=== PATIENT | female | born 1935 | race Caucasian/White ===

== ENCOUNTER 2019-11-25 16:37 | Inpatient (IN) | payer MEDICARE, SELFPAY ==
[2019-11-25] VITALS (10 sets, daily range): BP systolic 152–175; BP diastolic 56–96; PULSE 70–89; RESP 16–22; TEMP 36.4–36.7; O2SAT 95–100; BMI 30.4
--- NOTE | ~2019-11-25 | US_ITS ---
EXAMINATION: US right upper quadrant DATE: 11/29/2019 09:14 INDICATION: Upper bilirubinemia. Abdominal pain. TECHNIQUE: Multiple grayscale and Doppler ultrasound images of the abdomen were obtained. COMPARISON: CT dated 11/25/2019 and 07/17/2019. FINDINGS: The body of the pancreas is poorly visualized but appears unremarkable. The head and tail the pancrea s are not visualized. Liver has normal echogenicity and contour, with a smooth surface. No liver lesi on identified. No intrahepatic biliary duct dilation suspected. Portal venous flow was seen in the he patopetal, normal direction and has normal Doppler waveform. Multiple hyperechoic shadowing gallstone s within the nondilated gallbladder. Chronic gallbladder wall thickening. Sonographic Thomas sign was reported as negative by the pc installation engineer.Common bile duct measures 5 mm in diameter which is normal b ut which is decreased since the most recent prior CT. On one of the images there appears be a 3 mm, e chogenic focus within the proximal common bile duct which could represent either sludge or a nonshado wing gallstone. IMPRESSION: 1. Cholelithiasis and possible choledocholithiasis. No intrahepatic biliary ductal dilation and rubens l caliber common bile duct however the latter is new since the most recent prior CT suggesting possib ility of interval passage of a previously obstructing gallstone. If clinically indicated MRCP could b e obtained for more definitive assessment for choledocholithiasis. 2. Chronic gallbladder wall thickening with negative sonographic Thomas's sign suggestive of chronic cholecystitis. False negative for acute cholecystitis would also be a possibility if patient is recei ving analgesics. If there is clinical concern for acute cholecystitis could consider HIDA scan for fu rther evaluation. Reviewed, dictated and finalized at location A. IMPRESSION: 1. Cholelithiasis and possible choledocholithiasis. No intrahepatic biliary neto markell dilation and normal caliber common bile duct however the latter is new sinc e the most recent prior CT suggesting possibility of interval passage of a prev iously obstructing gallstone. If clinically indicated MRCP could be obtained fo r more definitive assessment for choledocholithiasis. 2. Chronic gallbladder wall thickening with negative sonographic Thomas's sign suggestive of chronic cholecystitis. False negative for acute cholecystitis wou ld also be a possibility if patient is receiving analgesics. If there is clinic al concern for acute cholecystitis could consider HIDA scan for further evaluat ion.
--- NOTE | ~2019-11-25 | MR_ITS ---
EXAMINATION: MR MRCP wo/w con/w 3D wo ind DATE: 11/30/2019 11:14 INDICATION: Possible choledocholithiasis TECHNIQUE: Magnetic resonance imaging (MRI) of the abdomen was performed without and with intravenous contrast. Sequences included coronal T2-weighted SS-FSE ARC, coronal T2-weighted FS SS-FSE, coronal T2-weighted 2D FS FIESTA, Water:Coronal LAVA-Flex, sagittal T2-weighted SS-FSE ARC, axial SSFSE ARC, axial 3D DualEcho, axial DWI B=600, axial T1-weighted LAVA, FAT:Coronal LAVA-Flex, and coronal in and opposed phase LAVA-Flex. Thick-slab T2-weighted FRFSE-XL images were obtained for magnetic resonance cholangiopancreatography (MRCP). Maximum intensity projection 3-D reconstructions of the volumetric data were created by the technologist. Postcontrast sequences included a time course of axial T1-weig hted LAVA, FAT:Coronal LAVA-Flex, coronal in and opposed phase LAVA-Flex, and Water:Coronal LAVA-Flex . COMPARISON: CT, 11/25/2019, 08/08/2017 CONTRAST: Multihance, 15 cc FINDINGS: ABDOMEN MRI: There is an 11 mm nodule of the right lower lobe. The heart size is normal. The liver, s pleen, and right adrenal gland are normal. There is a 1.3 cm mass of the left adrenal gland which dem onstrates loss of signal on opposed phase sequences, consistent with an adenoma. There are multiple s tones within the gallbladder. There is mild chronic gallbladder wall thickening. Subtle edematous str anding of the pericholecystic fat is again noted. There is a 2.0 x 1.3 cm cystic lesion with thin int ernal septations in the head of the pancreas which is not definitely communicate with the main pancre atic duct. Postcontrast images are slightly limited by respiratory motion artifact. No abnormal enhan cement is identified. There are no pathologically enlarged abdominal lymph nodes. There is a large pa rastomal hernia of the left abdominal wall containing nonobstructed transverse colon. A large volume of colonic stool is present. ABDOMEN MRCP: There is no intrahepatic or extrahepatic biliary dilatation. No common bile duct stone or stricture is seen. There is mass effect on the mid common bile duct by the cystic pancreatic head mass. The main common bile duct measures 7 mm and narrows to 2 mm in the area of mass effect caused b y the pancreatic head lesion. The pancreatic duct is normal in course and caliber. IMPRESSION: 1. Cholelithiasis with mild gallbladder distention and mild pericholecystic fat stranding, both of wh ich are chronic, likely reflecting chronic cholecystitis. 2. No choledocholithiasis. 3. Cystic lesion in the head of the pancreas measuring up to 2.0 cm which exerts mass effect on the m id common bile duct. The differential diagnosis includes pseudocyst, intraductal papillary mucinous n eoplasm (IPMN), mucinous cystic neoplasm (MCN), and the less common serous cystadenoma and neuroendoc rine tumor. Correlate for history of pancreatitis. Follow-up MRI without and with contrast in one yea r is recommended. 4. Left adrenal adenoma. Reviewed, dictated and finalized at location A. IMPRESSION: 1. Cholelithiasis with mild gallbladder distention and mild pericholecystic fat stranding, both of which are chronic, likely reflecting chronic cholecystitis. 2. No choledocholithiasis. 3. Cystic lesion in the head of the pancreas measuring up to 2.0 cm which exert s mass effect on the mid common bile duct. The differential diagnosis includes pseudocyst, intraductal papillary mucinous neoplasm (IPMN), mucinous cystic liliana plasm (MCN), and the less common serous cystadenoma and neuroendocrine tumor. C orrelate for history of pancreatitis. Follow-up MRI without and with contrast i n one year is recommended. 4. Left adrenal adenoma.
--- NOTE | ~2019-11-25 | XR_ITS ---
EXAMINATION: XR chest 2V DATE: 12/06/2019 13:48 INDICATION: Abnormal lung sounds TECHNIQUE: AP and lateral views of the chest are obtained. COMPARISON: None available FINDINGS: Bibasilar airspace opacities have developed, left greater than right. A small left pleural effusion has developed. There is no pneumothorax. The heart size is normal. There are bridging osteop hytes at multiple levels in the spine, consistent with diffuse idiopathic skeletal hyperostosis (DISH ). IMPRESSION: 1. New bibasilar airspace opacities, left greater than right, consistent with atelectasis versus pneu monia. 2. Small left pleural effusion. Reviewed, dictated and finalized at location B. IMPRESSION: 1. New bibasilar airspace opacities, left greater than right, consistent with a telectasis versus pneumonia. 2. Small left pleural effusion.
--- NOTE | ~2019-11-25 | XR_ITS ---
EXAMINATION: XR abdomen obstructive series DATE: 11/28/2019 20:21 INDICATION: Nausea and constipation TECHNIQUE: Upright and supine views of the abdomen were obtained. COMPARISON: None. FINDINGS: There are no dilated loops of bowel. A large volume of colonic stool is present. No free in traperitoneal gas is identified. There is mild bilateral hip osteoarthritis. Severe lumbar spondylosi s is noted. IMPRESSION: 1. Constipation. 2. Nonobstructive bowel gas pattern. Reviewed, dictated and finalized at location A.
--- NOTE | ~2019-11-25 | CT_ITS ---
EXAMINATION: CTA chest abdomen DATE: 11/25/2019 19:29 INDICATION: Nausea and cough, history of rectal cancer TECHNIQUE: Computed tomographic angiography (CTA) of the chest and abdomen was performed with 100 mL Omnipque-350 intravenous contrast. Maximum intensity projection 3D-reconstructions of the aorta and o ther arteries were constructed by the technologist on a separate workstation. The dose-length product (DLP) was 612.44 mGy-cm. Automated exposure control and iterative reconstruction technique were empl oyed. COMPARISON: None. FINDINGS: CHEST CTA: The thoracic aorta is normal without evidence of aneurysm or dissection. There has been slight interv al decrease in size of a right middle lobe nodule which measures up to 1.8 cm, previously 2.2 cm. A 1 .0 cm nodule of the right middle lobe previously measured 1.4 cm. There is a stable 1 cm nodule of th e right lower lobe. Dependent atelectasis is noted. The heart size is normal. No pathologically enlar ged thoracic lymph nodes are identified. The heart size is normal. There is a trace right pleural eff usion. No pneumothorax is identified. There are bridging osteophytes at multiple levels in the spine, consistent with diffuse idiopathic skeletal hyperostosis (DISH). ABDOMEN CTA: There is no aneurysm or dissection of the abdominal aorta. The celiac artery, superior mesenteric art lev, and inferior mesenteric artery are normal. There are single renal arteries. There is calcified a therosclerosis of the aorta and many of the other arteries. The liver, spleen, pancreas, and right ad renal gland are normal. There is an unchanged 13 mm mass of the left adrenal gland, likely an adenoma . The kidneys are unremarkable. There again appears to be subtle, chronic fat stranding surrounding t he gallbladder.Again seen is a large parastomal hernia containing nonobstructed transverse colon. A m oderate volume of colonic stool is present. There is severe lumbar spondylosis. IMPRESSION: 1. No evidence of thoracic or abdominal aortic aneurysm or dissection. 2. Right lung nodules which are stable to decreased in size, consistent with metastatic disease. 3. Large parastomal hernia containing nonobstructed transverse colon. 4. Chronic mild fat stranding surrounding the gallbladder. Reviewed, dictated and finalized at location A. IMPRESSION: 1. No evidence of thoracic or abdominal aortic aneurysm or dissection. 2. Right lung nodules which are stable to decreased in size, consistent with me tastatic disease. 3. Large parastomal hernia containing nonobstructed transverse colon. 4. Chronic mild fat stranding surrounding the gallbladder.
--- NOTE | 2019-11-25 16:37 | ED.CHESTPAIN ---
HPI - Chest Pain General Chief Complaint: Chest Pain Stated Complaint: CP, nausea, cough (x 1 week) Time Seen by Provider: 11/25/19 16:37 Source: patient, EMS and RN notes reviewed Mode of arrival: EMS Limitations: no limitations History of Present Illness HPI narrative: Pt is an 84 y/o female who presents to the ED, via EMS, with c/o epigastric abdominal pain that radiates to her left upper chest and to her upper back. Pt's sx began a couple of hours ago. Per EMS, pt's O2 saturation was at 90%. Pt denies having oxygen at home. She notes that her hernia is more tender that normal. Pt was given ASA 324 mg and Zofran 4 mg by EMS en route to the ED. Pt also reports nausea, vomiting with one episode today, and a productive cough, but denies a fever. Pt takes ASA 81 mg daily. complaint: other (epigastric abdominal pain) Onset (ago): hour(s) (couple) Timing of current episode: still present Pain location: epigastric Pain radiation: back (upper) and other (left upper chest) Associated symptoms: nausea, vomiting (with one episode today) and cough (productive) Treatment prior to arrival: aspirin (324 mg by EMS) and other (Zofran 4 mg by EMS) Related Data Home Medications Medication Instructions Recorded Confirmed aspirin 81 mg tablet,delayed 81 mg PO DAILY 09/20/19 release ergocalciferol (vitamin D2) 1,250 50,000 unit PO WEEKLY 09/20/19 mcg (50,000 unit) capsule psyllium husk 0.4 gram capsule 0.4 gm PO DAILY 09/20/19 vitamin B complex 1 cap PO DAILY 09/20/19 Allergies Allergy/AdvReac Type Severity Reaction Status Date / Time No Known Allergies Allergy Unknown Unverified 11/25/19 16:55 Review of Systems Review of Systems: Narrative: CONSTITUTIONAL: Denies fever. RESPIRATORY: Reports productive cough. GASTROINTESTINAL: Reports epigastric abdominal pain that radiates to her left upper chest and to her upper back, nausea, vomiting with one episode today. 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 GI bleed Glaucoma Gout Heartburn Hemorrhoids Hyperlipidemia Kidney infection Lung cancer right Measles Osteoarthritis Parkinsons disease Pneumonia Rectal polyp Recurrent UTI UTI (urinary tract infection) Surgical History Surgical History H/O hemorrhoidectomy H/O removal of cyst From ovaries History of appendectomy Hx of cataract removal with insertion of prosthetic lens Hx of tonsillectomy Family History Family History Sibling Family history of lung cancer Family history of emphysema Nervous breakdown Father Family history of heart disease in male family member before age 55 Mother Family history of heart disease in male family member before age 55 Other Hypertension Social History Social History Smoking status: Never smoker Alcohol intake: current Drinks per week: 2 Substance use: never Gender identity (if verbalized by the patient): Female Spiritual care concerns: No Agree to blood products: Yes Exam Narrative: Exam Narrative: GENERAL: Well-appearing, well-nourished, and in no acute distress. HEAD: Normocephalic, atraumatic. EYES: PERRLA and EOMI. ENT: Nares clear, no rhinorrhea or epistaxis. Mucous membranes moist. NECK: Supple. CHEST: Coarse breath sounds. No respiratory distress. HEART: Regular rate and rhythm. No murmur heard. Normal peripheral pulses. ABDOMEN: Soft, nontender, nondistended, normal active bowel sounds. EXTREMITIES: Normal range of motion. No edema. SKIN: Warm, dry, no rash. NEURO: No focal deficits. A
--- NOTE | 2019-11-25 16:43 | ECG_ITS ---
Measurements Intervals Graham Rate: 79 P: 10 PA: 167 QRS: -21 QRSD: 134 T: 30 QT: 396 QTc: 454 Interpretive Statements SINUS RHYTHM RIGHT BUNDLE BRANCH BLOCK BASELINE ARTIFACT- I, II, III, AVR, AVL, AVF, V1-V6 ABNORMAL ECG Electronically Signed On 11-25-2019 17:09:15 CDT by Erlin Augustin D.O.
[2019-11-25] MEDS: ONDANSETRON INJ 4 MG/2 ML VIAL IV PUSH ×2 (16:56→18:56)
[2019-11-25] MEDS: MORPHINE SULFATE 2 MG/ML INJ IV PUSH ×2 (16:57→19:00)
--- NOTE | 2019-11-25 17:10 | PC.NURSE ---
FAMILY MEMBER SPEAKING WITH MYSELF AND CAIO SMITH ABOUT PT AT THIS TIME, FEARFUL ABOUT PT SAFETY. PT STANDING IN DOORWAY LISTENING, A&OX3, STEADY GAIT. PT VERBALIZING MULTIPLE TIMES THAT HE IS DENYING HI/SI AND WILL NOT STAY TO SPEAK WITH CRISIS FOR A F/U PLAN. PT SELF REMOVED X1 IV. CAIO SMITH STATES THAT BECAUSE PT IS STABLE ORIENTATED THAT HE IS CLINICALLY SOBER AND CLEARED TO LEAVE LONG HE HAS A RIDE HOME.
[2019-11-25 17:27] LABS: Partial Thromboplastin Time 25.7 SECONDS (22.3-36.8); Prothrombin Time 12.8 Seconds (11.1-14.7)
[2019-11-25 17:29] LABS: Alanine Aminotransferase 17 U/L (4-35); Alkaline Phosphatase 90 U/L (38-126); Aspartate Amino Transferase 26 U/L (14-36); Bilirubin,Total 0.3 mg/dL (0.2-1.3); Blood Urea Nitrogen 14 mg/dL (7-17); Calcium 8.7 mg/dL (8.4-10.2); Carbon Dioxide 25 mmol/L (22-30); Chloride 105 mmol/L (98-107); Estimated CRCL calculation 64 ml/min; Estimated Glomerular Filt Rate > 60; Glucose 121 mg/dL (65-105); Lipase 209 U/L (23-300); Potassium 3.4 mmol/L (3.4-5.0); Sodium 143 mmol/L (137-145)
[2019-11-25 17:35] LABS: Hematocrit 39.8 % (37.0-47.0); Hemoglobin 13.1 g/dL (12.0-15.0); Mean Corpuscular HGB Conc 32.9 g/dl (32-36); Mean Corpuscular Hemoglobin 29.9 pg (26-34); Mean Corpuscular Volume 90.9 fl (80-100); Mean Platelet Volume 11.1 fl (7.4-10.4); Platelet Count Result 213 k/mm3 (150-375); Red Blood Count 4.38 M/mm3 (4.2-5.4); Red Cell Distribution Width 13.9 % (11.5-14.5)
[2019-11-25 17:38] LABS: NT Pro B Type Natriuretic Pept 538 PG/ML (5-100)
[2019-11-25 17:39] LABS: Monocytes Percent Manual 4 % (3-9); Neutrophils Percent Manual 91 % (46-73); Platelet Estimate Adequate (Adequate); Total Cells Counted 100
[2019-11-25 17:44] LABS: Troponin I 0.022 ng/mL (0.000-0.034)
--- NOTE | 2019-11-25 17:49 | PC.NURSE ---
PT AMBULATED TO RESTROOM TO GIVE URINE SAMPLE. URINE HAT WAS PLACED IN THE TOILET, BUT PT MISSED THE HAT. PT ATTEMPTED AGAIN AFTER REPOSITIONING THE HAT AND MISSED AGAIN. SHE STATED THAT SHE WOULD LIKE TO TRY AGAIN LATER. RN NOTIFIED.
--- NOTE | 2019-11-25 18:57 | PC.NURSE ---
PT STILL ATTEMPTING TO PRODUCE URINE SAMPLE, REFUSING STRAIGHT CATH.
--- NOTE | 2019-11-25 19:01 | PC.NURSE ---
pt to CT at this time.
--- NOTE | 2019-11-25 19:21 | PC.NURSE ---
REPORT GIVEN TO JUAN VALLADARES AT THIS TIME, SHE HAS ASSUMED PT REPORT.
[2019-11-25 20:12] LABS: Troponin I 0.054 ng/mL (0.000-0.034)
--- NOTE | 2019-11-25 20:28 | PC.NURSE ---
pt states she isn't able to urinate at this time to give sample. refused straight cath.
[2019-11-25] MEDS: HEPARIN SOD/D5W 100 UNITS/ML 25,000 UNITS/250 ML BAG 8 UNITS IV CONT (21:11)
[2019-11-25] MEDS: HEPARIN SODIUM 5,000 UNITS/ML VIAL 4000 UNITS IV PUSH (21:11)
--- NOTE | 2019-11-25 22:21 | PM.IMHP ---
H&P: HPI History of Present Illness Chief complaint: chest pain,elevation in troponin Narrative: This is an 84 year old female with known history of large ventral hernia, colostomy following colon resection from colon cancer presented to the hospital with a complaint of epigastric abdominal pain that started this afternoon and radiates up towards her chest. Associated symptoms included nausea and one episode of vomiting today which was orangish in color but no blood. She denies any fever or chills but has had a sporadic nonproductive cough for one week duration. The patient was also placed on oxygen in the ER tonight as she was saturating 90%. She denies any diarrhea and currently denies any pain around her stoma. She denies any palpitations, shortness of breath, sore throat, dysuria, hematuria, or rectal bleeding. She last had radiation therapy to the right chest secondary to pulmonary nodules in Oct of this year. NO LE swelling is reported. The patient was evaluated in the ER tonight and her second troponin was mildly elevated. While in CT tonight the patient's IV infiltrated and she experienced extravasation of an unknown amount of IV contrast into her right forearm. 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 GI bleed Glaucoma Gout Heartburn Hemorrhoids Hyperlipidemia Kidney infection Lung cancer right Measles Osteoarthritis Parkinsons disease Pneumonia Rectal polyp Recurrent UTI UTI (urinary tract infection) Surgical History Surgical History H/O hemorrhoidectomy H/O removal of cyst From ovaries History of appendectomy Hx of cataract removal with insertion of prosthetic lens Hx of tonsillectomy Family History Family History Sibling Family history of lung cancer Family history of emphysema Nervous breakdown Father Family history of heart disease in male family member before age 55 Mother Family history of heart disease in male family member before age 55 Other Hypertension Social History Social History Smoking status: Never smoker Alcohol intake: current Drinks per week: 2 Substance use: never Gender identity (if verbalized by the patient): Female Spiritual care concerns: No Agree to blood products: Yes Meds Home Medications and Allergies Home Medications Medication Instructions Recorded Confirmed Type aspirin 81 mg tablet,delayed 81 mg PO DAILY 09/20/19 11/26/19 History release ergocalciferol (vitamin D2) 1,250 50,000 unit PO WEEKLY 09/20/19 11/26/19 History mcg (50,000 unit) capsule psyllium husk 0.4 gram capsule 0.4 gm PO DAILY 09/20/19 11/26/19 History vitamin B complex 1 cap PO DAILY 09/20/19 11/26/19 History Allergies Allergy/AdvReac Type Severity Reaction Status Date / Time No Known Allergies Allergy Unknown Unverified 11/25/19 16:55 Vital Signs Vital Signs - 24 hr 11/25/19 16:34 11/25/19 16:44 11/25/19 18:56 Temperature 36.4 C Pulse Rate 83 72 72 Respiratory Rate 19 17 19 Blood Pressure 175/96 H 157/78 H 164/84 H Pulse Oximetry 100 98 95 11/25/19 19:29 11/25/19 20:27 11/25/19 21:57 Temperature Pulse Rate 80 70 81 Respiratory Rate 19 22 H 17 Blood Pressure 165/77 H 172/73 H 165/65 H Pulse Oximetry 97 97 97 11/25/19 22:14 Temperature Pulse Rate 88 Respiratory Rate 16 Blood Pressure 160/65 H Pulse Oximetry 99 Exam Const: General: cooperative, alert and awake Nutr
--- NOTE | 2019-11-25 22:31 | ADMGEN ---
This patient, Xiomara Ybarra, was admitted to IMU Room 211-01. Patient/family oriented to hospital policies and general routines including ID bracelet, bed and alarms, visiting hours, pain management, procedures, bathroom and other care routines, personal items, smoking policy, room service/diet, and visiting hours. Valuables list has been completed. Information on how to activate the Rapid Response Team has been discussed. Patient/Family are encouraged to report perceived risks to care and to ask questions if they do not understand what they are told or what they should do.
[2019-11-25] MEDS: BELLADONNA ALK/PHENOB ELIX 10 ML, MAG HYDROX/ALUMINUM HYD/SIMETH 30 ML, LIDOCAINE HCL 2... PO (23:06)
[2019-11-25 23:10] LABS: Add Urine Microscopic? YES; Appearance Urine Clear (Clear); Bilirubin Urine Negative (Negative); Blood Urine 1+ (Negative); Color Urine Straw (Yellow); Glucose Urine UA Negative (Negative); Ketones Urine Negative (Negative); Leukocyte Esterase Ur Negative LEU/UL (Negative); Mucus Urine Rare /lpf; Nitrate Urine Negative (Negative); Protein Urine Negative (Negative); Squamous Epithelial Cell Urine Few /hpf (Few); Urobilinogen Urine Negative mg/dL (<2.0)
[2019-11-25 23:18] LABS: Specific Grav Ur > 1.060 (1.001-1.035)
[2019-11-26] VITALS (14 sets, daily range): BP systolic 126–135; BP diastolic 49–74; PULSE 69–95; RESP 20; TEMP 36.4–37.1; O2SAT 93–97; BMI 30.4
[2019-11-26 03:46] LABS: Basophils Percent Auto 0.4 % (0.2-1.2); Eosinophils Absolute Auto 0.1 K/mm3 (0-0.3); Eosinophils Percent Auto 0.8 % (0-4.4); Hematocrit 41.5 % (37.0-47.0); Hemoglobin 13.7 g/dL (12.0-15.0); Immature Granulocyte Absolute 0.07 K/mm3 (0.00-0.031); Immature Granulocyte Percent A 0.7 % (0-0.5); Lymphocytes Absolute Auto 0.67 K/mm3 (0.9-3.2); Lymphocytes Percent Auto 6.6 % (18.3-44.2); Mean Corpuscular Hemoglobin 29.8 pg (26-34); Mean Corpuscular Volume 90.2 fl (80-100); Mean Platelet Volume 11.1 fl (7.4-10.4); Monocytes Absolute Auto 0.8 K/mm3 (0.1-0.6); Monocytes Percent Auto 7.9 % (2.6-8.5); Neutrophils Absolute Auto 8.5 K/mm3 (1.3-6.7); Neutrophils Percent Auto 83.6 % (45.5-73.1); Platelet Count Result 220 k/mm3 (150-375); White Blood Count 10.1 K/mm3 (4.5-10.0)
[2019-11-26 03:56] LABS: Partial Thromboplastin Time 58.7 SECONDS (22.3-36.8)
[2019-11-26] MEDS: HEPARIN SODIUM 5,000 UNITS/ML VIAL 2500 UNITS IV PUSH (04:46)
[2019-11-26 05:03] LABS: Troponin I 0.073 ng/mL (0.000-0.034)
[2019-11-26] MEDS: ASPIRIN 81 MG ENTERIC TABLET PO (09:32)
[2019-11-26] MEDS: VITAMIN B COMPLEX CAPSULE 1 CAP PO (09:32)
[2019-11-26] MEDS: PSYLLIUM POWDER PACKET 1 PACKET PO (09:32)
--- NOTE | 2019-11-26 10:04 | PM.CNCAR ---
Assessment and Plan Assessment and plan (1) Elevated troponin: Code(s): R79.89 - Other specified abnormal findings of blood chemistry Status: Acute Assessment and Plan: Patient presenting with pain around her hernia with radiation to the epigastric area. No chest pain. EKG shows sinus rhythm with RBBB. She has indeterminate trop elevation at 0.05-0.07. Clinically she does appear to have acute coronary syndrome. Will repeat troponin and check 2D echo. if trop trending down and echo shows no regional wall motion abnormalities then would d/c IV heparin Would start ASA. She would benefit from ischemic evaluation possibly with Nuc stress test and that can be arranged in outpatient settings after her current symptoms improve. (2) History of colon cancer: Code(s): Z85.038 - Personal history of other malignant neoplasm of large intestine Status: Chronic Assessment and Plan: With new diagnosis of lung mets. Followed by oncology. History of Present Illness History of Present Illness Consult date/time: 11/26/19 10:04 84 y/o female with no known cardiac history or risk factors (NO HTN, DM or tobacco abuse), history of colon cancer s/p surgery in 2016 (has colostomy bag with large Parastomal hernia), recent diagnosis of metastatic disease in the lungs for which she is receiving radiation who presented with pain around her hernia site with radiation to the epigastric area and the flank. Her troponin was noted to be very mildly elevated at 0.05 and 0.07 hence cardiology consult was called. She was started in ED on Heparin drip. She denies chest pain or dyspnea. She feels better compared to yesterday. EKG showed sinus rhythm with RBBB She underwent CT of chest and abdomen with stable findings related to hernia and lung nodules. No report of aortic dissection or PE. Reason For Visit: chest pain,elevation in troponin Review of Systems Review of Systems: All systems reviewed & are unremarkable except as noted in HPI and below Constitutional: Constitutional: Denies fatigue and Denies headache(s) Eyes: Eyes: Denies blurry vision ENT: Reports Normal hearing present and Denies headache(s) Cardiovascular: Cardiovascular: Denies chest pain, Denies diaphoresis, Denies pedal edema, Denies leg edema, Denies lightheadedness, Denies palpitations and Denies dyspnea Respiratory: Respiratory: Denies cough and Denies dyspnea Gastrointestinal: Gastrointestinal: Reports abdominal pain Musculoskeletal: Musculoskeletal: Denies back pain Neurologic: Reports Normal hearing present and Denies headache(s) Psychiatric: Psychiatric: Denies anxiety Endocrine: Endocrine: Denies fatigue and Denies palpitations PMFSH Past Medical History Medical History Anal cancer Arthritis Bronchitis Cataract Removed Chronic tension-type headache, not intractable Colostomy in place Constipation Depression 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 GI bleed Glaucoma Gout Heartburn Hemorrhoids Hyperlipidemia Kidney infection Lung cancer right Measles Osteoarthritis Parkinsons disease Pneumonia Rectal polyp Recurrent UTI UTI (urinary tract infection) Surgical History Surgical History H/O hemorrhoidectomy H/O removal of cyst From ovaries History of appendectomy Hx of cataract removal with insertion of prosthetic lens Hx of tonsillectomy Family History Family History Sibling Family history of lung cancer Family history of emphysema Nervous breakdown Father Family history of heart disease in male family member before age 55 Mother Family history of heart disease in male family member before age 55 Other Hypertension Social History Social History Smoking status: Never smoker Alcohol intake: current Abdoulaye
[2019-11-26 11:01] LABS: Troponin I 0.046 ng/mL (0.000-0.034)
--- NOTE | 2019-11-26 11:56 | PM.IMPN ---
Progress Note: A&P Assessment and Plan (1) Epigastric pain: Code(s): R10.13 - Epigastric pain Status: Acute Assessment and Plan: Epigastric/Chest pain. Chest tightness was continuous and felt related to the viral picture. Elevated Trop noted and ACS needs claudia considered. Echo pending. Wan add PPI. The patient has been anticoagulated w/ IV heparin by ER provider but wan stop if Echo okay. Continue ASA therapy. Check lipids. (2) Elevated troponin: Code(s): R79.89 - Other specified abnormal findings of blood chemistry Status: Acute Assessment and Plan: Troponin peaked at 0.073 is trending. Etiology unclear. Echocardiogram results pending continue aspirin. Currently on heparin drip. Appreciate Cardiology input. (3) Cough: Code(s): R05 - Cough Status: Acute Assessment and Plan: Patient with probably viral syndrome with cough and expiratory wheezing. CT showing no infiltrative process to suggest PNA. Will check sputum. Will add azithromycin. Check for pertussis as well. (4) Extravasation injury of intravenous catheter site with other complication: Code(s): T82.898A - Other specified complication of vascular prosthetic devices, implants and grafts, initial encounter Status: Acute Assessment and Plan: The patient suffered infiltration of contrast media into her right forearm on 11/25/[address] Abd/Pelvis w/ contrast. We are applying ice and elevating her limb. No evidence of any signs or symptoms of necrosis/compartment syndrome. Continue to monitor. (5) HTN (hypertension) with goal to be determined: Code(s): I10 - Essential (primary) hypertension Status: Chronic Assessment and Plan: BP reviewed on 11/26/19. BP elevated to 175/96 on admission. BP better controlled today. PRN labetalol w/ parameters ordered. (6) Ventral hernia: Qualifiers: Obstruction and gangrene presence: without obstruction or gangrene Qualified Code(s): K43.9 - Ventral hernia without obstruction or gangrene Code(s): K43.9 - Ventral hernia without obstruction or gangrene Status: Chronic Assessment and Plan: Large parastomal hernia without change when compared to CT in November 2018. Transverse colon nonobstructed. (7) History of colon cancer: Code(s): Z85.038 - Personal history of other malignant neoplasm of large intestine Status: Chronic Assessment and Plan: Patient has a history of colon cancer s/p resection with colostomy and known pulmonary mets. Recent XRT treatment last month. Continue heme-onc recommendations. Subjective Date/time seen: 11/26/19 11:56 Interval history: 84yo female with metastatic colon CA to the lung with recent XRT treatment to the lung here for CP and cough. Assuming car. Chart reviewed. Patietn had chest tightness continuously yesterday worse weith cough. No further chest tightness. Cough productive of yellowish sputum. Exam Narrative: Exam Narrative: Gen - NARD lying semi-recumbent in bed Chest - scattered rhonchi with expiratory wheezes CV - RRR, S1/S2; Tele showing no significant dysrhythmias Abd - soft, left mid abd colostomy with hernia. +BS Ext - no pedal edema; right arm firm but not tense. Tender in the forearm. 2+ radial pulse Psych - normal mood and affect Neuro - nml senstatin to the right hand. decreased ability to splunk developer due to edema Skin - warm and dry Objective Data Vital Signs Vital Signs: Vital Signs - 24 hr 11/25/19 16:34 11/25/19 16:44 11/25/19 18:56 Temperature 97.6 F Pulse Rate 83 72 72 Respiratory Rate 19 17 19 Blood Pressure 175/96 H 157/78 H 164/84 H Pulse Oximetry 100 98 95 11/25/19 19:29 11/25/19 20:27 11/25/19 21:57 Temperature Pulse Rate 80 70 81 Respiratory Rate 19 22 H 17 Blood Pressure 165/77 H 172/73 H 165/65 H Pulse Oximetry 97 97 97 11/25/19 22:00 11/25/19 22:14
[2019-11-26] MEDS: AZITHROMYCIN 250 MG TABLET 500 MG PO (13:05)
[2019-11-26] MEDS: PERFLUTREN LIPID MICROSPHERES 1.5 ML VIAL DILUTED TO 10 ML TOTAL VOLUME IV PUSH (15:04)
--- NOTE | 2019-11-26 21:21 | ECHO_ITS ---
Patient Info Name: Xiomara Ybarra Age: 84 years : 1935 Gender: Female Ht: 63 in Wt: 172 lbs BSA: 1.89 m2 HR: 85 bpm BP: 129 / 56 mmHg Heart Rhythm: Right Bundle Branch Block Technical Quality: Fair Exam Date: 11/26/2019 10:48 AM Exam Location: [facility] Card Pulmonary Patient Status: Inpatient Admit Date: 11/25/2019 Staff Ordering Physician: Deanne Ledbetter MD (phillip/angel) Relief Man: Vaibhav Garnica RDCS Attending Provider: Charli Arndt MD Exam Type: CA echo dop color flow w con Study Info Indications I21.4 - Non-ST elevation (NSTEMI) myocardial infarction Complete two-dimensional, color flow and Doppler transthoracic echocardiogram is performed with contrast to opacify the left ventrical and to improve the deliniation of the left ventrical endocarial boarders. Contrast/Agitated Saline Contrast/Ag. Saline: Definity Amount: 2.00 ml Administered By: Shahana Hussein RN Existing IV Access: Yes History/Risk Factors NSTEMI and RBBB. Summary 1. Left ventricular systolic function is normal, estimated at 60-65%. Left Ventricle Left ventricular chamber dimension is normal. Left ventricular systolic function is normal, estimated at 60-65%. There is no increased left ventricular wall thickness. Left ventricular septal wall motion is normal. The left ventricular diastolic function is normal. Right Ventricle Right ventricular chamber dimension is normal. Right ventricular systolic function is normal. Left Atria Left atrial chamber dimension is normal. Right Atria Right atrial chamber dimension is normal. Aortic Valve The aortic valve is trileaflet. There is no aortic valve sclerosis. There is no aortic valve stenosis. There is no aortic valve regurgitation. Pulmonic Valve The pulmonic valve is normal. There is no pulmonic valve stenosis. There is no pulmonic regurgitation. Mitral Valve The mitral valve has normal leaflets. There is no mitral valve stenosis. There is no mitral valve regurgitation. Tricuspid Valve The tricuspid valve leaflets are normal. There is no significant tricuspid valve stenosis. There is no tricuspid valve regurgitation. No pulmonary hypertension, estimated pulmonary arterial systolic pressure is 43 mmHg. Pericardium/Pleural The pericardium appears normal. There is no pericardial effusion. Inferior Vena Cava Normal inferior vena cava with >50% collapse upon inspiration consistent with normal right atrial pressure, 5 mmHg. Aorta The aortic root size at the sinus of Valsalva is normal. The prox ascending aorta size is normal. Left Ventricular Outflow Tract Name Value Normal LVOT 2D LVOT Diameter 1.89 cm LVOT Doppler LVOT Peak Gradient 6 mmHg LVOT Mean Gradient 3 mmHg LVOT VTI 20.93 cm LVOT VTI/AV VTI Ratio 0.82 LVOT Stroke Volume 58.71 ml LVOT CO 4.98 l/min LVOT CI
[2019-11-27] VITALS (12 sets, daily range): BP systolic 128–164; BP diastolic 48–68; PULSE 81–102; RESP 16–24; TEMP 36.5–37.3; O2SAT 94–98
[2019-11-27 05:18] LABS: Basophils Percent Auto 0.3 % (0.2-1.2); Eosinophils Absolute Auto 0.1 K/mm3 (0-0.3); Eosinophils Percent Auto 0.5 % (0-4.4); Hematocrit 39.3 % (37.0-47.0); Immature Granulocyte Absolute 0.06 K/mm3 (0.00-0.031); Immature Granulocyte Percent A 0.5 % (0-0.5); Lymphocytes Absolute Auto 0.34 K/mm3 (0.9-3.2); Lymphocytes Percent Auto 3.1 % (18.3-44.2); Mean Corpuscular HGB Conc 33.1 g/dl (32-36); Mean Corpuscular Hemoglobin 30.2 pg (26-34); Mean Corpuscular Volume 91.2 fl (80-100); Mean Platelet Volume 11.4 fl (7.4-10.4); Monocytes Absolute Auto 0.8 K/mm3 (0.1-0.6); Monocytes Percent Auto 7.5 % (2.6-8.5); Neutrophils Absolute Auto 9.6 K/mm3 (1.3-6.7); Neutrophils Percent Auto 88.1 % (45.5-73.1); Platelet Count Result 175 k/mm3 (150-375); Red Blood Count 4.31 M/mm3 (4.2-5.4); White Blood Count 10.9 K/mm3 (4.5-10.0)
[2019-11-27 05:36] LABS: Blood Urea Nitrogen 14 mg/dL (7-17); Calcium 8.9 mg/dL (8.4-10.2); Carbon Dioxide 27 mmol/L (22-30); Chloride 102 mmol/L (98-107); Cholesterol 151 mg/dL (0-200); Estimated CRCL calculation 52 ml/min; Estimated Glomerular Filt Rate > 60; Glucose 138 mg/dL (65-105); HDL Direct 42 mg/dL; Potassium 4.2 mmol/L (3.4-5.0); Sodium 134 mmol/L (137-145); Triglycerides 127 mg/dL (<150)
[2019-11-27 05:47] LABS: LDL Cholesterol Direct 70 mg/dL
[2019-11-27] MEDS: ASPIRIN 81 MG ENTERIC TABLET PO (09:29)
[2019-11-27] MEDS: PSYLLIUM POWDER PACKET 1 PACKET PO (09:29)
[2019-11-27] MEDS: AZITHROMYCIN 250 MG TABLET PO (09:29)
[2019-11-27] MEDS: VITAMIN B COMPLEX CAPSULE 1 CAP PO (09:29)
--- NOTE | 2019-11-27 10:10 | PM.PNCARD ---
Progress Note: A&P Assessment and Plan (1) History of colon cancer: Code(s): Z85.038 - Personal history of other malignant neoplasm of large intestine Status: Chronic Assessment and Plan: pt with hx of colon ca with lung meds s/p colostomy and presence of hernia management per PC, GI and oncology (2) HTN (hypertension) with goal to be determined: Code(s): I10 - Essential (primary) hypertension Status: Chronic Assessment and Plan: well controlled cont meds (3) Epigastric pain: Code(s): R10.13 - Epigastric pain Status: Acute Assessment and Plan: CE borderline without dynamic changes no acute EKG changes ECHO pending cont medical management Subjective Date/time seen: 11/27/19 10:10 Interval history: Pt was seen and examined, chart was reviewed, case was d/w pt's nurse. Pt feels fine today. No CP, SOB or palpitations. No LE edema. Last night has some N but no V. Pt with known hx of colon ca s/p colostomy followed by GI. Review of Systems Review of Systems: All systems reviewed & are unremarkable except as noted in HPI and below Constitutional: Constitutional: Reports as per HPI Eyes: Eyes: Reports as per HPI ENT: Reports system reviewed and no additional complaints, except as documented and Reports as per HPI Cardiovascular: Cardiovascular: Reports as per HPI Respiratory: Respiratory: Reports as per HPI Gastrointestinal: Gastrointestinal: Reports as per HPI, Reports nausea and Denies vomiting Genitourinary: Genitourinary: Reports as per HPI Musculoskeletal: Musculoskeletal: Reports as per HPI Exam Const: General: no acute distress Nutritional Appearance: well nourished Orientation/consciousness: patient oriented x3 HENMT: Head: normal to inspection and atraumatic Ears: hearing grossly normal bilaterally Face and sinus: normal facial exam Eyes: General: appearance normal, both eyes and all related structures Pupils: Equal, round and reactive pupils present EOM: EOMs intact bilaterally Neck: Neck: supple Chest: Chest palpation & inspection: normal inspection of the chest Resp: Effort & Inspection: normal respiratory effort and no respiratory distress Auscultation: clear to auscultation bilaterally Cardio: Jugular venous distension: no JVD Rate: regular rate Heart sounds: S1 normal heart sound present, S2 normal heart sound present and no murmurs Peripheral pulses: Peripheral pulses 2+ throughout GI: GI Palp: No abdominal tenderness Auscultation: normal bowel sounds Skin: General skin exam: normal color Neuro: General: patient oriented x3 Cranial nerves: Yes Equal, round and reactive pupils present Extrem: General: normal to inspection and no clubbing, cyanosis or edema Objective Data Vital Signs Vital Signs: Vital Signs - 24 hr 11/26/19 12:00 11/26/19 14:00 11/26/19 16:00 Temperature 36.4 C L 37.1 C Pulse Rate 84 86 79 Respiratory Rate 20 20 Blood Pressure 127/74 126/49 L Pulse Oximetry 93 93 11/26/19 18:00 11/26/19 20:00 11/26/19 22:00 Temperature 37.1 C Pulse Rate 95 81 78 Respiratory Rate 20 Blood Pressure 135/55 L Pulse Oximetry 96 11/26/19 23:54 11/27/19 00:00 11/27/19 02:00 Temperature 36.6 C Pulse Rate 84 89 86 Respiratory Rate 20 Blood Pressure 133/55 L Pulse Oximetry 97 11/27/19 04:00 11/27/19 06:00 11/27/19 08:00 Temperature 36.6 C 36.5 C Pulse Rate 100 93 93 Respiratory Rate 20 18 Blood Pressure 146/62 H 158/61 H Pulse Oximetry 98 97 Intake/Output Intake/Output: Intake & Output 11/24/19 11/25/19 11/26/19 11/27/19 23:59 23:59 23:59 23:59 Intake Total 927 150 Output Total 1150 750 Balance -223 -600 Meds/Results Medications: Active Medications Generic Name Dose Route Start Last Admin Trade Name Alvarado PRN Reason Stop Dose Admin Aspirin 81 mg 11/26/19 09:00 11/27/19 09:29 Aspirin Ec PO 81 mg DAILY ANDER [facility]
[2019-11-27] MEDS: CALCIUM CARBONATE (TUMS) 500 MG (200 MG ELEMENTAL) PO (10:11)
--- NOTE | 2019-11-27 15:06 | PM.IMPN ---
Progress Note: A&P Assessment and Plan (1) Epigastric pain: Code(s): R10.13 - Epigastric pain Status: Acute Assessment and Plan: Epigastric/atypical chest pain. Chest tightness was continuous and felt related to the viral picture. Elevated Trop noted and ACS needs to be considered. Echo showing EF 60% otherwise unremarkable. Still with nausea and vomiting but more related to her coughing jags. Protonix added. Continue to follow. Home tomorrow if she continue to improve. (2) Elevated troponin: Code(s): R79.89 - Other specified abnormal findings of blood chemistry Status: Acute Assessment and Plan: Troponin peaked at 0.073 and is trending downward. Etiology unclear. Echo results showing EF 60% otherwaise unremarkable. Heparin drip stopped. Appreciate Cardiology input. (3) Cough: Code(s): R05 - Cough Status: Acute Assessment and Plan: Patient with probably viral syndrome/Acute Bronchitis with cough and expiratory wheezing. CT showing no infiltrative process to suggest PNA. Sputum ordered. Pertussis ordered as well. Continue azithromycin. Add Xopenex. (4) Extravasation injury of intravenous catheter site with other complication: Code(s): T82.898A - Other specified complication of vascular prosthetic devices, implants and grafts, initial encounter Status: Acute Assessment and Plan: The patient suffered infiltration of contrast media into her right forearm on 11/25/[address] Abd/Pelvis w/ contrast. Edema much improved and no evidence of compartment syndrome or necrosis. Continue using ice and elevating her limb. Continue to monitor. (5) HTN (hypertension) with goal to be determined: Code(s): I10 - Essential (primary) hypertension Status: Chronic Assessment and Plan: BP reviewed on 11/27/19. BP elevated at times but stable. Not on anti-HTN meds at home. Continue with PRN labetalol w/ parameters for now. (6) Ventral hernia: Qualifiers: Obstruction and gangrene presence: without obstruction or gangrene Qualified Code(s): K43.9 - Ventral hernia without obstruction or gangrene Code(s): K43.9 - Ventral hernia without obstruction or gangrene Status: Chronic Assessment and Plan: Large parastomal hernia without change when compared to CT in November 2018. Transverse colon nonobstructed. Could be causing her pain when she coughs or has bout of emesis. (7) History of colon cancer: Code(s): Z85.038 - Personal history of other malignant neoplasm of large intestine Status: Chronic Assessment and Plan: Patient has a history of colon cancer s/p resection with colostomy and known pulmonary mets. Recent XRT treatment last month. Patient to follow up with Heme/Onc. Subjective Date/time seen: 11/27/19 1420 Interval history: 84yo female with metastatic colon CA to the lung with recent XRT treatment to the lung here for CP and cough. Patient having nausea and vomiting last night and again this morning. Nausea/vomiting seem to occur after a coughing jag. This was associated with pain under her left breast that radiated around to her back. She was able to tolerate some breakfast this morning and currently trying to eat lunch. Feels better overall this afternoon. Cough less productive and less frequent. Arm pain much better but still hard in areas. Exam Narrative: Exam Narrative: Gen - NARD sitting at the side of bed Chest - improved air exchange, few rhonchi. 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 still firm but not tense in the right forearm. groutman better. Psych - normal mood and affect Skin - warm and dry Objective Data Vital Signs Vital Signs: Vital Signs - 24 hr 11/25
[2019-11-27] MEDS: PANTOPRAZOLE 40 MG TABLET PO (16:11)
--- NOTE | 2019-11-27 20:10 | PC.NURSE ---
This patient, Xiomara Ybarra, was transferred to [facility] on 11/27/19 at 1728. Personal belongings sent with patient. Belongings list checked and signed with receiving. Report given to RN. Appropriate documentation sent with patient.
[2019-11-27] MEDS: LEVALBUTEROL NEB 1.25 MG/3 ML 0.63 MG INHALATION (21:26)
[2019-11-28] VITALS (8 sets, daily range): BP systolic 121–132; BP diastolic 47–54; PULSE 70–88; RESP 16–20; TEMP 36.6–36.7; O2SAT 97–100
[2019-11-28] MEDS: LEVALBUTEROL NEB 1.25 MG/3 ML 0.63 MG INHALATION ×4 (03:27→19:51)
[2019-11-28] MEDS: PANTOPRAZOLE 40 MG TABLET PO (08:56)
[2019-11-28] MEDS: PSYLLIUM POWDER PACKET 1 PACKET PO (08:56)
[2019-11-28] MEDS: AZITHROMYCIN 250 MG TABLET PO (08:56)
[2019-11-28] MEDS: VITAMIN B COMPLEX CAPSULE 1 CAP PO (08:56)
[2019-11-28] MEDS: ASPIRIN 81 MG ENTERIC TABLET PO (08:56)
--- NOTE | 2019-11-28 09:23 | PM.PNCARD ---
Progress Note: A&P Assessment and Plan (1) History of colon cancer: Code(s): Z85.038 - Personal history of other malignant neoplasm of large intestine Status: Chronic Assessment and Plan: pt with hx of colon ca with mets fu by PC, Gi and oncology (2) Elevated troponin: Code(s): R79.89 - Other specified abnormal findings of blood chemistry Status: Acute Assessment and Plan: pt with borderline troponin no acute EKG changes cont medical management and risk factor modification (3) Epigastric pain: Code(s): R10.13 - Epigastric pain Status: Acute Assessment and Plan: most probably related to underlying abdominal process Subjective Date/time seen: 11/28/19 09:23 pt feels fine today. No CP, SOB or palptiations. States that her PC is planning to dc today. Pt was seen and examined, chart was reviewed, case was d/w pt's nurse. Review of Systems Review of Systems: All systems reviewed & are unremarkable except as noted in HPI and below Constitutional: Constitutional: Reports as per HPI Eyes: Eyes: Reports as per HPI ENT: Reports system reviewed and no additional complaints, except as documented and Reports as per HPI Cardiovascular: Cardiovascular: Reports as per HPI Respiratory: Respiratory: Reports as per HPI Gastrointestinal: Gastrointestinal: Reports as per HPI Genitourinary: Genitourinary: Reports as per HPI Musculoskeletal: Musculoskeletal: Reports as per HPI Exam Const: General: no acute distress Nutritional Appearance: well nourished Orientation/consciousness: patient oriented x3 HENMT: Head: normal to inspection and atraumatic Ears: hearing grossly normal bilaterally Face and sinus: normal facial exam Eyes: General: appearance normal, both eyes and all related structures Pupils: Equal, round and reactive pupils present EOM: EOMs intact bilaterally Neck: Neck: supple Chest: Chest palpation & inspection: normal inspection of the chest Resp: Effort & Inspection: normal respiratory effort and no respiratory distress Auscultation: clear to auscultation bilaterally Cardio: Jugular venous distension: no JVD Rate: regular rate Heart sounds: S1 normal heart sound present, S2 normal heart sound present and no murmurs Peripheral pulses: Peripheral pulses 2+ throughout GI: GI Palp: No abdominal tenderness Auscultation: normal bowel sounds Skin: General skin exam: normal color Neuro: General: patient oriented x3 Cranial nerves: Yes Equal, round and reactive pupils present Extrem: General: normal to inspection and no clubbing, cyanosis or edema Objective Data Vital Signs Vital Signs: Vital Signs - 24 hr 11/27/19 10:00 11/27/19 12:00 11/27/19 14:00 Temperature 37.3 C Pulse Rate 102 H 92 88 Respiratory Rate 24 H Blood Pressure 164/68 H Pulse Oximetry 94 11/27/19 16:00 11/27/19 19:40 11/27/19 21:26 Temperature 36.9 C 36.9 C Pulse Rate 84 81 84 Respiratory Rate 22 H 16 16 Blood Pressure 132/58 L 128/48 L Pulse Oximetry 98 97 11/27/19 21:35 11/28/19 03:27 11/28/19 04:02 Temperature 36.6 C Pulse Rate 88 77 70 Respiratory Rate 16 16 16 Blood Pressure 121/47 L Pulse Oximetry 100 11/28/19 08:26 11/28/19 08:37 Temperature Pulse Rate 78 77 Respiratory Rate 18 18 Blood Pressure Pulse Oximetry Intake/Output Intake/Output: Intake & Output 11/25/19 11/26/19 11/27/19 11/28/19 23:59 23:59 23:59 23:59 Intake Total 927 1620 50 Output Total 1150 1950 Balance -223 -330 50 Meds/Results Medications: Active Medications Generic Name Dose Route Start Last Admin Trade Name Eliasq PRN Reason Stop Dose Admin Aspirin 81 mg 11/26/19 09:00 11/28/19 08:56 Aspirin Ec PO 81 mg DAILY ANDER Administration Azithromycin 250 mg 11/27/19 09:00 11/28/19 08:56 Zithromax Tablet PO 250 mg DAILY ANDER Administration Calcium Carbonate 200 mg 11/27/19 09:36 11/27/19 10:11 Tums PO 2
--- NOTE | 2019-11-28 11:33 | PM.IMPN ---
Progress Note: A&P Assessment and Plan (1) Epigastric pain: Code(s): R10.13 - Epigastric pain Status: Acute Assessment and Plan: Epigastric/atypical chest pain. Chest tightness was continuous and felt related to the viral picture. Now having wheezing to suggest also a more viral picture. Elevated Trop noted and ACS needs to be considered but feel less likely. Echo showing EF 60% otherwise unremarkable. Nausea and vomitinghas improved. Continue Protonix. Add steroids. Continue neb treatments. (2) Elevated troponin: Code(s): R79.89 - Other specified abnormal findings of blood chemistry Status: Acute Assessment and Plan: Troponin peaked at 0.073 and is trending downward. Etiology unclear. Echo results showing EF 60% otherwise unremarkable; no regional wall motion abnormality. Heparin drip stopped. Appreciate Cardiology input. (3) Cough: Code(s): R05 - Cough Status: Acute Assessment and Plan: Patient with probably viral syndrome/Acute Bronchitis with cough and worsening wheezing. Nausea nad vomiting resolving but still with cough. CT showing no infiltrative process to suggest PNA. Sputum ordered but not collected. Pertussis pending. Continue azithromycin and Xopenex. (4) Extravasation injury of intravenous catheter site with other complication: Code(s): T82.898A - Other specified complication of vascular prosthetic devices, implants and grafts, initial encounter Status: Acute Assessment and Plan: The patient suffered infiltration of contrast media into her right forearm on 11/25/[address] Chest/Abdomen w/ contrast. Edema almost resolved. No evidence of compartment syndrome or necrosis. Continue to monitor. (5) HTN (hypertension) with goal to be determined: Code(s): I10 - Essential (primary) hypertension Status: Chronic Assessment and Plan: BP reviewed on 11/28/19. BP better controlled. Not on anti-HTN meds at home. Continue with PRN labetalol w/ parameters for now. (6) Ventral hernia: Qualifiers: Obstruction and gangrene presence: without obstruction or gangrene Qualified Code(s): K43.9 - Ventral hernia without obstruction or gangrene Code(s): K43.9 - Ventral hernia without obstruction or gangrene Status: Chronic Assessment and Plan: Large parastomal hernia without change when compared to CT in November 2018. Transverse colon nonobstructed. Could be causing her pain when she coughs or has bouts of emesis. (7) History of colon cancer: Code(s): Z85.038 - Personal history of other malignant neoplasm of large intestine Status: Chronic Assessment and Plan: Patient has a history of colon cancer s/p resection with colostomy and known pulmonary mets. CT of the chest showing slight interval decrease in size of a RML nodule which measures up to 1.8 cm, previously 2.2 cm. A 1.0 cm nodule of the right middle lobe previously measured 1.4 cm. There is a stable 1 cm nodule of the right lower lobe. Patient had recent XRT treatment last month. Patient to follow up with Heme/Onc. Subjective Date/time seen: 11/28/19 11:33 Interval history: 84yo female with metastatic colon CA to the lung with recent XRT treatment to the lung here for CP and cough. No longer having nausea and vomiting. Eating better. Cough persistent but looser. She feels very weak. Walking to the BR with help. Still with pain under the left breast area worse with coug. No abd tightness as on admission. Sputum is clear (one episode of dark sputum). Exam Narrative: Exam Narrative: Gen - NARD lying semi-recumbent in bed Chest - expiratory wheezing diffusely. nml RR CV - RRR, S1/S2 Abd - soft, NT, +BS, parastomal hernia noted, colostomy in left side of abdomen Ext - no pedal edema; right upper extremity edema resolved. Slight firm area in the mid forearm otherwise normal appeari
[2019-11-28] MEDS: methylPREDNISolone SOD SUCC 40 MG VIAL IV PUSH ×2 (12:25→17:38)
[2019-11-28] MEDS: ENOXAPARIN 40 MG/0.4 ML SYRINGE SUB-Q (12:25)
[2019-11-28] MEDS: CALCIUM CARBONATE (TUMS) 500 MG (200 MG ELEMENTAL) PO (15:01)
[2019-11-28 15:48] LABS: Bilirubin,Total 4.3 mg/dL (0.2-1.3)
[2019-11-28 18:23] LABS: Basophils Percent Auto 0.2 % (0.2-1.2); Hematocrit 35.7 % (37.0-47.0); Hemoglobin 11.8 g/dL (12.0-15.0); Immature Granulocyte Absolute 0.09 K/mm3 (0.00-0.031); Immature Granulocyte Percent A 0.7 % (0-0.5); Lymphocytes Absolute Auto 0.11 K/mm3 (0.9-3.2); Lymphocytes Percent Auto 0.9 % (18.3-44.2); Mean Corpuscular HGB Conc 33.1 g/dl (32-36); Mean Corpuscular Hemoglobin 29.9 pg (26-34); Mean Corpuscular Volume 90.6 fl (80-100); Mean Platelet Volume 11.5 fl (7.4-10.4); Monocytes Absolute Auto 0.2 K/mm3 (0.1-0.6); Monocytes Percent Auto 1.2 % (2.6-8.5); Neutrophils Absolute Auto 12.5 K/mm3 (1.3-6.7); Platelet Count Result 188 k/mm3 (150-375); Red Blood Count 3.94 M/mm3 (4.2-5.4); Red Cell Distribution Width 14.4 % (11.5-14.5); White Blood Count 12.9 K/mm3 (4.5-10.0)
[2019-11-28 18:32] LABS: INR 1.2; Prothrombin Time 14.6 Seconds (11.1-14.7)
[2019-11-28 18:33] LABS: Partial Thromboplastin Time 34.8 SECONDS (22.3-36.8)
[2019-11-28 18:39] LABS: Alanine Aminotransferase 83 U/L (4-35); Albumin Level 3.8 g/dL (3.5-5.1); Alkaline Phosphatase 131 U/L (38-126); Aspartate Amino Transferase 75 U/L (14-36); Bilirubin,Total 3.3 mg/dL (0.2-1.3); Blood Urea Nitrogen 14 mg/dL (7-17); Carbon Dioxide 24 mmol/L (22-30); Chloride 100 mmol/L (98-107); Estimated CRCL calculation 46 ml/min; Estimated Glomerular Filt Rate > 60; Glucose 250 mg/dL (65-105); Potassium 3.7 mmol/L (3.4-5.0); Sodium 132 mmol/L (137-145)
[2019-11-28 18:41] LABS: Lipase 862 U/L (23-300)
[2019-11-28 19:04] LABS: Lactate Dehydrogenase 382 U/L (313-618)
[2019-11-28] MEDS: polyethylene glycoL 3350 17 GM POWD.PACK PO (21:42)
[2019-11-29] VITALS (16 sets, daily range): BP systolic 102–131; BP diastolic 47–90; PULSE 62–172; RESP 16–18; TEMP 36.1–36.5; O2SAT 97–99
[2019-11-29] MEDS: methylPREDNISolone SOD SUCC 40 MG VIAL IV PUSH ×5 (01:41→23:33)
[2019-11-29] MEDS: LEVALBUTEROL NEB 1.25 MG/3 ML 0.63 MG INHALATION ×4 (02:22→20:56)
[2019-11-29 05:59] LABS: Hemoglobin 12.3 g/dL (12.0-15.0); Mean Corpuscular HGB Conc 33.2 g/dl (32-36); Mean Corpuscular Hemoglobin 30.3 pg (26-34); Mean Corpuscular Volume 91.1 fl (80-100); Mean Platelet Volume 11.9 fl (7.4-10.4); Platelet Count Result 184 k/mm3 (150-375); Red Blood Count 4.06 M/mm3 (4.2-5.4); Red Cell Distribution Width 14.4 % (11.5-14.5); White Blood Count 10.9 K/mm3 (4.5-10.0)
--- NOTE | 2019-11-29 06:19 | PC.NURSE ---
intake before mid noc
[2019-11-29 06:22] LABS: Alanine Aminotransferase 89 U/L (4-35); Albumin Level 3.7 g/dL (3.5-5.1); Alkaline Phosphatase 125 U/L (38-126); Aspartate Amino Transferase 63 U/L (14-36); Bilirubin,Total 2.1 mg/dL (0.2-1.3); Blood Urea Nitrogen 16 mg/dL (7-17); Calcium 9.1 mg/dL (8.4-10.2); Carbon Dioxide 25 mmol/L (22-30); Chloride 100 mmol/L (98-107); Estimated CRCL calculation 53 ml/min; Estimated Glomerular Filt Rate > 60; Glucose 180 mg/dL (65-105); Lipase 1507 U/L (23-300); Magnesium 2.4 mg/dL (1.6-2.3); Phosphorus 3.9 mg/dL (2.5-4.5); Potassium 3.7 mmol/L (3.4-5.0); Sodium 135 mmol/L (137-145)
[2019-11-29] MEDS: AZITHROMYCIN 250 MG TABLET PO (09:23)
[2019-11-29] MEDS: PSYLLIUM POWDER PACKET 1 PACKET PO (09:23)
[2019-11-29] MEDS: PANTOPRAZOLE 40 MG TABLET PO (09:23)
[2019-11-29] MEDS: ENOXAPARIN 40 MG/0.4 ML SYRINGE SUB-Q (09:23)
[2019-11-29] MEDS: ASPIRIN 81 MG ENTERIC TABLET PO (09:23)
[2019-11-29] MEDS: VITAMIN B COMPLEX CAPSULE 1 CAP PO (09:23)
--- NOTE | 2019-11-29 09:41 | PCOTNOTE ---
Pt. on hold this date due to HR of 160-165 per nursing. 11/29/2019
--- NOTE | 2019-11-29 09:50 | PCPTNOTE ---
The PT treatment was unable to be completed this AM. Treatment held per RN due to tachycardia. Will continue per Plan of Care frequency and duration.
--- NOTE | 2019-11-29 09:58 | ECG_ITS ---
Measurements Intervals [place] Rate: 147 P: 164 MI: 132 QRS: -32 QRSD: 136 T: 20 QT: 295 QTc: 462 Interpretive Statements ATRIAL FLUTTER/TACHYCARDIA WITH RAPID VENTRICULAR RESPONSE LEFT AXIS DEVIATION RIGHT BUNDLE BRANCH BLOCK BASELINE ARTIFACT- II, III, AVF ABNORMAL ECG Electronically Signed On 11-29-2019 10:17:17 CDT by Erlin Augustin D.O.
[2019-11-29] MEDS: METOPROLOL TARTRATE INJ 5 MG/5 ML VIAL IV PUSH (10:04)
--- NOTE | 2019-11-29 10:06 | PM.IMPN ---
Progress Note: A&P Assessment and Plan (1) Arrhythmia: Code(s): I49.9 - Cardiac arrhythmia, unspecified Status: Acute Assessment and Plan: EKG ordered. Patient HR up to 170. Probably AFib but could be SVT or AFlutter. Patient feels well. BP normal. Will give one dose of Lopressor IV to slow HR down and move to IMU. EKG more consistent with AFib. She converted to NSR prior to transfer to IMU. Repeat EKG confirms NSR. Oral Lopressor started. Discussed with Cardiology. Plan for ASA only for stroke prevention. Continue tele. (2) Epigastric pain: Code(s): R10.13 - Epigastric pain Status: Acute Assessment and Plan: Epigastric/atypical chest pain. Chest tightness was continuous and felt related to the viral picture. Now having wheezing to suggest also a more viral picture. Elevated Trop noted and ACS needs to be considered but feel less likely. Now liver enzymes, lipase and Bili elevated. CT Abdomen showing chronic mild fat stranding surrounding the gallbladder but no pancreatitis. Consider acute/chronic GB disease but pain mostly left sided. Nausea and vomiting improved today. Continue Protonix. Follow up on RUQ US. NPO. Trend Lipase. Consider repeat CT scan. RUQ US noted and concerning for choledochylithiasis. Will check MRCP and keep NPO. GI consult. May need to have CCY at some point. (3) Elevated LFTs: Code(s): R94.5 - Abnormal results of liver function studies Status: Acute Assessment and Plan: As above. (4) Elevated troponin: Code(s): R79.89 - Other specified abnormal findings of blood chemistry Status: Acute Assessment and Plan: Troponin peaked at 0.073 and is trending downward. Etiology unclear but could be related to intermittent tachy-arrhythmias. Echo results showing EF 60% otherwise unremarkable; no regional wall motion abnormality. Heparin drip stopped. Appreciate Cardiology input. (5) Cough: Code(s): R05 - Cough Status: Acute Assessment and Plan: Patient with probably viral syndrome/Acute Bronchitis with cough and worsening wheezing. Nausea returned last night but better this morning. Cough better with nebs and steroids. CT showing no infiltrative process to suggest PNA. Sputum ordered but not collected. Pertussis pending. Continue azithromycin, steroids and Xopenex. (6) HTN (hypertension) with goal to be determined: Code(s): I10 - Essential (primary) hypertension Status: Chronic Assessment and Plan: BP reviewed on 11/29/19. BP well controlled. Not on anti-HTN meds at home. Continue with PRN labetalol w/ parameters for now. May need to start rate controlling agents. (7) Ventral hernia: Qualifiers: Obstruction and gangrene presence: without obstruction or gangrene Qualified Code(s): K43.9 - Ventral hernia without obstruction or gangrene Code(s): K43.9 - Ventral hernia without obstruction or gangrene Status: Chronic Assessment and Plan: Large parastomal hernia without change when compared to CT in November 2018. Transverse colon nonobstructed. KUB last night showing large volume of stool but no dilated loops. Miralax started. (8) History of colon cancer: Code(s): Z85.038 - Personal history of other malignant neoplasm of large intestine Status: Chronic Assessment and Plan: Patient has a history of colon cancer s/p resection with colostomy and known pulmonary mets. CT of the chest showing slight interval decrease in size of a RML nodule which measures up to 1.8 cm, previously 2.2 cm. A 1.0 cm nodule of the right middle lobe previously measured 1.4 cm. There is a stable 1 cm nodule of the right lower lobe. Patient had recent XRT treatment last month. Patient to follow up with Heme/Onc. (9) Extravasation injury of intravenous catheter site with other complication: Qualifiers: [place]
--- NOTE | 2019-11-29 10:41 | ECG_ITS ---
Measurements Intervals [place] Rate: 71 P: 79 NM: 166 QRS: -18 QRSD: 100 T: 62 QT: 404 QTc: 439 Interpretive Statements SINUS RHYTHM BORDERLINE ST-T WAVE ABNORMALITY- LATERAL LEADS BORDERLINE ECG Electronically Signed On 11-29-2019 12:59:55 CDT by Erlin Augustin D.O.
--- NOTE | 2019-11-29 11:33 | PC.NURSE ---
This patient, Xiomara Ybarra, was transferred to IMU room 210 on 11/29/19 at 1133. Personal belongings sent with patient. Belongings list checked and signed with receiving. Report given to Prisca MARTINEZ. Appropriate documentation sent with patient.
--- NOTE | 2019-11-29 13:51 | PCPTNOTE ---
Per IMU RN and lead PT, pt safe to continue treatments at this time.
[2019-11-29] MEDS: SODIUM CHLORIDE 0.9% IV 1,000 ML 70 ML IV CONT (15:00)
--- NOTE | 2019-11-29 15:05 | WPDGICN ---
Assessment and Plan Additional Plan This is an 84-year-old white female patient mass see because of elevated liver function test gallstones and possible common bile duct gallstones. Patient followed by Dr. Arndt on the hospital service. Patient reports being in her usual state of health till Monday when she developed nausea vomiting and chest pain. She presented the emergency room was found to have elevated troponin level and felt to have acute coronary syndrome. Patient states she is feeling better today. Tolerating diet. No longer with nausea vomiting. She was noted to have mild elevation of her transaminases. An ultrasound performed today reveals gallstones. There is a question of a filling defect in the common bile duct. Past medical history is significant for colon cancer she has a history of a colostomy. She is known to have a peristomal hernia. In September of this year CT scan suggested pulmonary metastases she is begun treatment for this. 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 She has no stated drug allergies. NKDA. Physical exam reveals her to be alert. Vital signs stable. HEENT exam unremarkable. Current we she is anicteric. Lungs are clear to auscultation and percussion. Heart is without murmur or extra sounds. Abdomen is soft. Bowel sounds are present she has a large peristomal hernia and a left-sided colostomy bag. No organomegaly is evident. Extremities are without clubbing cyanosis or edema. Laboratory findings reveals WBC 10.9, hemoglobin 12, hematocrit 37, MCV 91. Coagulation profile is normal. Total bilirubin 2.1, direct bilirubin 0, AST 63, ALT 89, alk-phos 125. Lipase 1507. Ultrasound of the gallbladder today reveals cholelithiasis and question of choledochal lithiasis. Impression 1. Abnormal liver function test. Could be related to gallstones and passage of a recent common bile duct gallstones . It may be prudent to proceed with MRCP to evaluate common duct rather than ERCP given her recent elevation of troponin. 2. Elevated lipase. Suggests that she may have had pancreatitis. On the basis of these gallstones. 3. Lung metastases from known colon cancer. 4. History of colon cancer with colostomy. Plan is to proceed with MRCP. ERCP may ultimately be required. We will follow liver function test and follow with you. 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 GI bleed Glaucoma Gout Heartburn Hemorrhoids Hyperlipidemia Kidney infection Lung cancer right Measles Osteoarthritis Parkinsons disease Pneumonia Rectal polyp Recurrent UTI UTI (urinary tract infection) Surgical History Surgical History H/O hemorrhoidectomy H/O removal of cyst From ovaries History of appendectomy Hx of cataract removal with insertion of prosthetic lens Hx of tonsillectomy Family History Family History Sibling Family history of lung cancer Family history of emphysema Nervous breakdown Father Family history of heart disease in male family member before age 55 Mother Family history of heart disease in male family member before age 55 Other Hypertension Social History Social History Smoking status: Never smoker Alcohol intake: current Drinks per week: 2 Substance use: never Gender identity (if verbalized by the patient): Female Spiritual care concerns: No Ag
--- NOTE | 2019-11-29 15:47 | PM.PNCARD ---
Progress Note: A&P Assessment and Plan (1) History of colon cancer: Code(s): Z85.038 - Personal history of other malignant neoplasm of large intestine Status: Chronic Assessment and Plan: pt with hx of colon ca with mets fu by PC, Gi and oncology (2) Elevated troponin: Code(s): R79.89 - Other specified abnormal findings of blood chemistry Status: Acute Assessment and Plan: pt with borderline troponin no acute EKG changes cont medical management and risk factor modification (3) Epigastric pain: Code(s): R10.13 - Epigastric pain Status: Acute Assessment and Plan: most probably related to underlying abdominal process (4) Arrhythmia: Code(s): I49.9 - Cardiac arrhythmia, unspecified Status: Acute (5) Paroxysmal atrial fibrillation with rapid ventricular response: Code(s): I48.0 - Paroxysmal atrial fibrillation Status: Acute Assessment and Plan: she had 1 episode of a proximal atrial fibrillation with significant tachycardia, converted to sinus rhythm, will start on metoprolol 25 mg p.o. daily. She needs to be on full-dose aspirin, she is not a candidate for anticoagulation due to her other comorbidities Subjective Date/time seen: 11/29/19 15:47 She was transferred to IMU due to tachycardia seems to be atrial fibrillation with rapid ventricular response. She feels okay now. No significant shortness breath. She was given IV metoprolol 5 mg x 1 Exam Const: General: no acute distress Nutritional Appearance: well nourished Orientation/consciousness: patient oriented x3 HENMT: Head: normal to inspection and atraumatic Ears: hearing grossly normal bilaterally Face and sinus: normal facial exam Eyes: General: appearance normal, both eyes and all related structures Sclera: sclerae normal Pupils: Equal, round and reactive pupils present EOM: EOMs intact bilaterally Neck: Neck: supple and no JVD Carotids: no bruits Chest: Chest palpation & inspection: normal inspection of the chest Resp: Effort & Inspection: normal respiratory effort and no respiratory distress Auscultation: clear to auscultation bilaterally Cardio: Jugular venous distension: no JVD Rate: regular rate and not tachycardic Rhythm: regular rhythm Heart sounds: S1 normal heart sound present, S2 normal heart sound present, no gallops, no murmurs and no rubs Peripheral pulses: Peripheral pulses 2+ throughout GI: Auscultation: normal bowel sounds Skin: General skin exam: normal color Neuro: General: patient oriented x3 Cranial nerves: Yes Equal, round and reactive pupils present and Yes Normal hearing present Speech: normal speech Extrem: General: normal to inspection, no clubbing, cyanosis or edema and no edema Psych: Affect: normal affect Objective Data Vital Signs Vital Signs: Vital Signs - 24 hr 11/28/19 19:52 11/28/19 20:00 11/28/19 20:02 Temperature 36.7 C Pulse Rate 81 88 80 Respiratory Rate 18 20 18 Blood Pressure 132/54 L Pulse Oximetry 97 11/29/19 02:24 11/29/19 02:32 11/29/19 09:35 Temperature Pulse Rate 71 69 160 H Respiratory Rate 18 18 16 Blood Pressure Pulse Oximetry 11/29/19 09:44 11/29/19 10:04 11/29/19 15:13 Temperature Pulse Rate 161 H 169 H 70 Respiratory Rate 16 18 Blood Pressure Pulse Oximetry 11/29/19 15:21 Temperature Pulse Rate 76 Respiratory Rate 18 Blood Pressure Pulse Oximetry Intake/Output Intake/Output: Intake & Output 11/26/19 11/27/19 11/28/19 11/29/19 23:59 23:59 23:59 23:59 Intake Total 927 1620 1465 540 Output Total 1150 1950 1300 250 Balance -223 -330 165 290 Meds/Results Medications: Active Medications Generic Name Dose Route Start Last Admin Trade Name Freq PRN Reason Stop Dose Admin Aspirin 81 mg 11/26/19 09:00 11/29/19 09:23 Aspirin Ec PO 81 mg DAILY ANDER Administration Azithromycin 250 mg 11/27/19 09:00 11/29/19 09:23
[2019-11-29 15:54] LABS: B. pertussis Source Swab
[2019-11-29] MEDS: polyethylene glycoL 3350 17 GM POWD.PACK PO (20:41)
[2019-11-29] MEDS: TOLNAFTATE 1% POWDER 45 GM BTL 1 APPLIC TOPICAL (20:41)
[2019-11-29] MEDS: METOPROLOL TARTRATE 25 MG TABLET PO (22:27)
[2019-11-30] VITALS (26 sets, daily range): BP systolic 100–133; BP diastolic 45–67; PULSE 55–142; RESP 16–20; TEMP 35.8–36.5; O2SAT 20–100
[2019-11-30] MEDS: LEVALBUTEROL NEB 1.25 MG/3 ML 0.63 MG INHALATION ×4 (02:25→20:47)
[2019-11-30 05:10] LABS: Hematocrit 32.8 % (37.0-47.0); Hemoglobin 10.9 g/dL (12.0-15.0); Mean Corpuscular HGB Conc 33.2 g/dl (32-36); Mean Corpuscular Hemoglobin 30.9 pg (26-34); Mean Corpuscular Volume 92.9 fl (80-100); Mean Platelet Volume 12.3 fl (7.4-10.4); Platelet Count Result 201 k/mm3 (150-375); Red Blood Count 3.53 M/mm3 (4.2-5.4); Red Cell Distribution Width 14.7 % (11.5-14.5); White Blood Count 13.9 K/mm3 (4.5-10.0)
[2019-11-30 05:38] LABS: Alanine Aminotransferase 70 U/L (4-35); Albumin Level 3.3 g/dL (3.5-5.1); Alkaline Phosphatase 102 U/L (38-126); Aspartate Amino Transferase 38 U/L (14-36); Bilirubin,Total 0.9 mg/dL (0.2-1.3); Blood Urea Nitrogen 23 mg/dL (7-17); Calcium 8.7 mg/dL (8.4-10.2); Carbon Dioxide 28 mmol/L (22-30); Chloride 103 mmol/L (98-107); Estimated CRCL calculation 52 ml/min; Estimated Glomerular Filt Rate > 60; Glucose 146 mg/dL (65-105); Lipase 138 U/L (23-300); Potassium 3.8 mmol/L (3.4-5.0); Sodium 137 mmol/L (137-145)
[2019-11-30] MEDS: methylPREDNISolone SOD SUCC 40 MG VIAL IV PUSH ×3 (05:41→17:46)
[2019-11-30] MEDS: PANTOPRAZOLE 40 MG TABLET PO (09:01)
[2019-11-30] MEDS: TOLNAFTATE 1% POWDER 45 GM BTL 1 APPLIC TOPICAL ×2 (09:01→21:10)
[2019-11-30] MEDS: VITAMIN B COMPLEX CAPSULE 1 CAP PO (09:01)
[2019-11-30] MEDS: METOPROLOL SUCCINATE EXT REL 25 MG TABCR PO (09:02)
[2019-11-30] MEDS: AZITHROMYCIN 250 MG TABLET PO (09:02)
[2019-11-30] MEDS: ASPIRIN 81 MG ENTERIC TABLET 324 MG PO (09:02)
[2019-11-30] MEDS: ENOXAPARIN 40 MG/0.4 ML SYRINGE SUB-Q (09:02)
[2019-11-30] MEDS: SODIUM CHLORIDE 0.9% IV 1,000 ML 70 ML IV CONT (10:05)
--- NOTE | 2019-11-30 10:05 | WPDGIPROGNO ---
Progress Note: A&P Additional Plan Patient comfortable at present. States abdominal pain has improved. Somewhat short of breath this morning. Physical exam reveals her to be alert. She is anicteric. Lungs are clear. Heart without murmur. Abdomen is soft. Left sided colostomy with camila stomal hernia noted. Labs reveal decrease in her LFTs. Indirect bilirubin is 0. It impression 1. Cholelithiasis with possible choledocholithiasis by ultrasound. MRCP to be performed today. She no longer has abdominal pain. 2. Elevated lipase. Suggest pancreatitis. Lipase has decreased significantly today. This could have been from gallstones. 3. History of colon cancer. Known metastases to the lung. This may contribute to her shortness of breath. 4. Colostomy with peristomal hernia. May account for abdominal discomfort. Impression resolving pancreatitis felt to be secondary to gallstones. Could have passed a common bile duct gallstone. Plan is for MRCP to assess status of common bile duct. If stones present an ERCP may be required. Plan to continue to monitor labs. Await findings from MRCP. Her pain has improved significantly. Subjective Date/time seen: 11/30/19 10:05 Objective Data Vital Signs Vital Signs: Vital Signs - 24 hr 11/29/19 12:00 11/29/19 15:13 11/29/19 15:21 Temperature Pulse Rate 71 70 76 Respiratory Rate 18 18 Blood Pressure Pulse Oximetry 11/29/19 16:00 11/29/19 19:42 11/29/19 20:00 Temperature 36.5 C 36.4 C Pulse Rate 76 69 68 Respiratory Rate 18 18 Blood Pressure 131/55 L 114/47 L Pulse Oximetry 97 97 11/29/19 20:50 11/29/19 22:00 11/29/19 22:27 Temperature 36.5 C Pulse Rate 78 172 H 163 H Respiratory Rate 18 16 Blood Pressure 128/90 Pulse Oximetry 99 11/29/19 23:56 11/30/19 00:00 11/30/19 01:23 Temperature 36.1 C L Pulse Rate 140 H 140 H 142 H Respiratory Rate 18 Blood Pressure 102/72 100/67 Pulse Oximetry 97 11/30/19 02:00 11/30/19 02:25 11/30/19 02:35 Temperature Pulse Rate 59 L 72 74 Respiratory Rate 18 18 Blood Pressure Pulse Oximetry 11/30/19 04:00 11/30/19 05:56 11/30/19 08:00 Temperature 36.4 C L 35.8 C L Pulse Rate 63 66 71 Respiratory Rate 20 18 Blood Pressure 116/50 L 127/56 L Pulse Oximetry 100 97 11/30/19 08:32 11/30/19 08:42 11/30/19 09:02 Temperature Pulse Rate 85 90 75 Respiratory Rate 20 20 Blood Pressure Pulse Oximetry Intake/Output Intake/Output: Intake & Output 11/27/19 11/28/19 11/29/19 11/30/19 23:59 23:59 23:59 23:59 Intake Total 1620 1465 840 806 Output Total 1950 1300 250 Balance -330 165 590 806 Meds/Results Medications: Active Medications Generic Name Dose Route Start Last Admin Trade Name Freq PRN Reason Stop Dose Admin Aspirin 324 mg 11/30/19 09:00 11/30/19 09:02 Aspirin Ec PO 324 mg DAILY ANDER Administration Azithromycin 250 mg 11/27/19 09:00 11/30/19 09:02 Zithromax Tablet PO 250 mg DAILY ANDER Administration Calcium Carbonate 200 mg 11/27/19 09:36 11/28/19 15:01 Tums PO 200 mg Q6H PRN Administration Indigestion Enoxaparin Sodium 40 mg 11/28/19 11:40 11/30/19 09:02 Lovenox SUB-Q 40 mg DAILY ANDER Administration Ergocalciferol 50,000 unit 12/02/19 09:00 Drisdol PO Mo@0900 ANDER Sodium Chloride 1,000 mls @ 70 mls/hr 11/29/19 13:40 11/30/19 05:04 Normal Saline Iv IV CONT 70 mls/hr .[id number] ANDER Infusion Levalbuterol HCl 0.63 mg 11/27/19 15:10 11/30/19 08:31 Xopenex 1.25 Mg/3 Ml INHALATION 0.63 mg Q6HRT ANDER Administration Methylprednisolone Sodium Succinate 40 mg 11/28/19 12:00 11/30/19 05:41 Solu-Medrol IV PUSH 40 mg Q6HR ANDER Administration Metoprolol Succinate 25 mg 11/30/19 09:00 11/30/19 09:02 Toprol Xl PO 25 mg QAM ANDER Administration Nitroglycerin 0.4 mg 11/25/19 21:06 Nitrostat Subl 0.4 Mg (1/150) SUBLINGUAL Q5MIN PRN Chest Kj
--- NOTE | 2019-11-30 11:39 | PM.IMPN ---
Progress Note: A&P Assessment and Plan (1) Arrhythmia: Code(s): I49.9 - Cardiac arrhythmia, unspecified Status: Acute Assessment and Plan: Patient HR up to 170 on 11/27. EKG 2nd to AFib. Patient converted to NSR with Lopressor IV once. Cardiology following. Patient had recurrent elevated HR last night and finally converted. Continue Metoprolol. Continue tele. Plan for ASA only for stroke prevention. (2) Epigastric pain: Code(s): R10.13 - Epigastric pain Status: Acute Assessment and Plan: Epigastric/atypical chest pain. Chest tightness was continuous and felt related to the viral picture. Now having wheezing to suggest also a more viral picture. Elevated Trop noted and ACS was considered but felt less likely. Now liver enzymes, lipase and Bili elevated. CT Abdomen showing chronic mild fat stranding surrounding the gallbladder but no pancreatitis. RUQ US noted and concerning for choledochylithiasis. Labs are better today including the Lipase and Bili. Passed gallstone? MRCP ordered. Appreciate GI input. Continue Protonix. MRCP showing cholelithiasis with mild gallbladder distention and mild pericholecystic fat stranding, both of which are chronic, likely reflecting chronic cholecystitis but no CBD stones or strictures. There is a mass effect on he mid CBD by a cystic mass at the head of the pancreas. A large volume of stool noted in the colon. Continue the Miralax. Advance diet. (3) Elevated LFTs: Code(s): R94.5 - Abnormal results of liver function studies Status: Acute Assessment and Plan: As above. (4) Elevated troponin: Code(s): R79.89 - Other specified abnormal findings of blood chemistry Status: Acute Assessment and Plan: Troponin peaked at 0.073 and is trending downward. Etiology unclear but could be related to intermittent tachy-arrhythmias. Echo results showing EF 60% otherwise unremarkable; no regional wall motion abnormality. Heparin drip stopped. Appreciate Cardiology input. (5) Cough: Code(s): R05 - Cough Status: Acute Assessment and Plan: Patient with probably viral syndrome/Acute Bronchitis with cough and worsening wheezing. Cough and wheezing better with nebs and steroids. Cough is now nonproductive. CT showing no infiltrative process to suggest PNA. Sputum Cx pending. Pertussis negative. Continue steroids and Xopenex. SHe has completed Azithro so wan stop. Try Pulmozyme. Change to Prednisone. (6) HTN (hypertension) with goal to be determined: Code(s): I10 - Essential (primary) hypertension Status: Chronic Assessment and Plan: BP reviewed on 11/30/19. BP well controlled. Not on anti-HTN meds at home. Metoprolol started and BP tolerating it. Continue with PRN labetalol w/ parameters. (7) Ventral hernia: Qualifiers: Obstruction and gangrene presence: without obstruction or gangrene Qualified Code(s): K43.9 - Ventral hernia without obstruction or gangrene Code(s): K43.9 - Ventral hernia without obstruction or gangrene Status: Chronic Assessment and Plan: Large parastomal hernia without change when compared to CT in November 2018. Transverse colon nonobstructed. KUB on 11/27 showing large volume of stool but no dilated loops. Miralax started but no benefit. Increase Miralax to BID. (8) History of colon cancer: Code(s): Z85.038 - Personal history of other malignant neoplasm of large intestine Status: Chronic Assessment and Plan: Patient has a history of colon cancer s/p resection with colostomy and known pulmonary mets. CT of the chest showing slight interval decrease in size of a RML nodule which measures up to 1.8 cm (previously 2.2cm). A 1.0 cm nodule of the right middle lobe previously measured 1.4 cm. There is a stable 1 cm nodule of the right lower lobe. Patient had recent XRT treatment last mo
[2019-11-30] MEDS: PSYLLIUM POWDER PACKET 1 PACKET PO (11:52)
[2019-11-30] MEDS: polyethylene glycoL 3350 17 GM POWD.PACK PO ×2 (11:52→21:10)
[2019-11-30] MEDS: DORNASE ALFA INH SOLN 1 MG/ML 2.5 ML AMP 2.5 MG INHALATION (20:50)
[2019-12-01] VITALS (24 sets, daily range): BP systolic 130–147; BP diastolic 55–63; PULSE 50–155; RESP 16–22; TEMP 35.9–36.3; O2SAT 97–100
[2019-12-01] MEDS: LEVALBUTEROL NEB 1.25 MG/3 ML 0.63 MG INHALATION ×4 (01:54→21:19)
[2019-12-01] MEDS: SODIUM CHLORIDE 0.9% IV 1,000 ML 70 ML IV CONT (04:30)
[2019-12-01 05:06] LABS: Hematocrit 33.9 % (37.0-47.0); Mean Corpuscular HGB Conc 32.4 g/dl (32-36); Mean Corpuscular Hemoglobin 30.5 pg (26-34); Mean Corpuscular Volume 93.9 fl (80-100); Mean Platelet Volume 12.1 fl (7.4-10.4); Platelet Count Result 180 k/mm3 (150-375); Red Blood Count 3.61 M/mm3 (4.2-5.4); Red Cell Distribution Width 14.6 % (11.5-14.5); White Blood Count 7.5 K/mm3 (4.5-10.0)
[2019-12-01 05:28] LABS: Alanine Aminotransferase 51 U/L (4-35); Albumin Level 3.2 g/dL (3.5-5.1); Alkaline Phosphatase 82 U/L (38-126); Aspartate Amino Transferase 24 U/L (14-36); Bilirubin,Total 0.7 mg/dL (0.2-1.3); Blood Urea Nitrogen 21 mg/dL (7-17); Calcium 8.5 mg/dL (8.4-10.2); Carbon Dioxide 27 mmol/L (22-30); Chloride 105 mmol/L (98-107); Estimated CRCL calculation 52 ml/min; Estimated Glomerular Filt Rate > 60; Glucose 119 mg/dL (65-105); Lipase 137 U/L (23-300); Potassium 4.3 mmol/L (3.4-5.0); Sodium 138 mmol/L (137-145)
[2019-12-01] MEDS: METOPROLOL SUCCINATE EXT REL 25 MG TABCR PO (05:47)
[2019-12-01] MEDS: PSYLLIUM POWDER PACKET 1 PACKET PO (08:14)
[2019-12-01] MEDS: PANTOPRAZOLE 40 MG TABLET PO (08:14)
[2019-12-01] MEDS: TOLNAFTATE 1% POWDER 45 GM BTL 1 APPLIC TOPICAL ×2 (08:14→20:00)
[2019-12-01] MEDS: ENOXAPARIN 40 MG/0.4 ML SYRINGE SUB-Q (08:14)
[2019-12-01] MEDS: polyethylene glycoL 3350 17 GM POWD.PACK PO ×2 (08:14→20:00)
[2019-12-01] MEDS: VITAMIN B COMPLEX CAPSULE 1 CAP PO (08:14)
[2019-12-01] MEDS: ASPIRIN 81 MG ENTERIC TABLET 324 MG PO (08:15)
[2019-12-01] MEDS: predniSONE 20 MG TABLET 40 MG PO (08:15)
[2019-12-01] MEDS: DORNASE ALFA INH SOLN 1 MG/ML 2.5 ML AMP 2.5 MG INHALATION ×2 (08:45→21:19)
--- NOTE | 2019-12-01 08:56 | WPDGIPROGNO ---
Progress Note: A&P Additional Plan Patient reports abdominal pain has resolved. Physidal exam reveals her to be alert. Lungs with a few rhonchi. Heart without murmur. Abdomen is soft nontender. Left-sided colostomy with camila stomal hernia noted labs reveal LFTs improved. CT scan suggest cholelithiasis. MRCP reveals clear common bile duct at this time. Impression 1. Gallstones. 2. Elevated lipase now improved. Suggesting pancreatitis. Now improved. It appears as though she may have had passage of a common bile duct gallstone causing her pain. Causing elevation lipase. Quite likely pancreatitis now resolved. 3. History of colon cancer. She has a left-sided colostomy with peristomal Hernia. 4. Lung metastases. Otter to be from colon cancer. Plan is for conservative therapy. We may need to consider surgery for her gallstones. Current we asymptomatic after recent pancreatitis. LFTs are resolving. Subjective Date/time seen: 12/01/19 08:56 Objective Data Vital Signs Vital Signs: Vital Signs - 24 hr 11/30/19 09:02 11/30/19 09:57 11/30/19 12:00 Temperature Pulse Rate 75 78 69 Respiratory Rate Blood Pressure Pulse Oximetry 11/30/19 12:24 11/30/19 14:00 11/30/19 14:14 Temperature 36.5 C Pulse Rate 70 70 64 Respiratory Rate 20 20 Blood Pressure 133/63 Pulse Oximetry 20 L 11/30/19 14:27 11/30/19 15:55 11/30/19 16:00 Temperature 36.5 C Pulse Rate 60 70 70 Respiratory Rate 20 16 Blood Pressure 111/45 L Pulse Oximetry 100 11/30/19 18:00 11/30/19 19:33 11/30/19 20:00 Temperature 36.1 C L Pulse Rate 78 67 66 Respiratory Rate 18 Blood Pressure 132/54 L Pulse Oximetry 97 11/30/19 20:48 11/30/19 21:05 11/30/19 22:00 Temperature Pulse Rate 65 65 55 L Respiratory Rate 18 18 Blood Pressure Pulse Oximetry 11/30/19 23:49 12/01/19 00:00 12/01/19 01:57 Temperature 36.1 C L Pulse Rate 64 50 L 57 L Respiratory Rate 18 16 Blood Pressure 120/54 L Pulse Oximetry 97 12/01/19 01:58 12/01/19 02:07 12/01/19 04:00 Temperature 36.1 C L Pulse Rate 58 L 61 50 L Respiratory Rate 16 18 Blood Pressure 133/58 L Pulse Oximetry 100 12/01/19 04:50 12/01/19 05:47 12/01/19 06:00 Temperature Pulse Rate 148 H 150 H 155 H Respiratory Rate Blood Pressure Pulse Oximetry 12/01/19 08:00 12/01/19 08:43 12/01/19 08:52 Temperature 35.9 C L Pulse Rate 60 63 67 Respiratory Rate 22 H 20 20 Blood Pressure 130/56 L Pulse Oximetry 100 Intake/Output Intake/Output: Intake & Output 11/28/19 11/29/19 11/30/19 12/01/19 23:59 23:59 23:59 23:59 Intake Total 5861 927 8635 1023 Output Total 1300 250 700 600 Balance 606 765 5608 423 Meds/Results Medications: Active Medications Generic Name Dose Route Start Last Admin Trade Name Freq PRN Reason Stop Dose Admin Aspirin 324 mg 11/30/19 09:00 12/01/19 08:15 Aspirin Ec PO 324 mg DAILY ANDER Administration Calcium Carbonate 200 mg 11/27/19 09:36 11/28/19 15:01 Tums PO 200 mg Q6H PRN Administration Indigestion Dornase Josef 2.5 mg 11/30/19 20:00 11/30/19 20:50 Pulmozyme INHALATION 2.5 mg Q12HRT ANDER Administration Enoxaparin Sodium 40 mg 11/28/19 11:40 12/01/19 08:14 Lovenox SUB-Q 40 mg DAILY COUNTS INCLUDE 234 BEDS AT [facility] Administration Ergocalciferol 50,000 unit 12/02/19 09:00 Drisdol PO Mo@0900 ANDER Sodium Chloride 1,000 mls @ 70 mls/hr 11/29/19 13:40 12/01/19 04:30 Normal Saline Iv IV CONT 70 mls/hr .[id number] ANDER Administration Levalbuterol HCl 0.63 mg 11/27/19 15:10 12/01/19 08:51 Xopenex 1.25 Mg/3 Ml INHALATION 0.63 mg Q6HRT ANDER Administration Metoprolol Succinate 25 mg 11/30/19 09:00 12/01/19 05:47 Toprol Xl PO 25 mg QAM ANDER Administration Nitroglycerin 0.4 mg 11/25/19 21:06 Nitrostat Subl 0.4 Mg (1/150) SUBLINGUAL Q5MIN PRN Chest Pain Pantoprazole [place]
--- NOTE | 2019-12-01 13:02 | PM.IMPN ---
Progress Note: A&P Assessment and Plan (1) Arrhythmia: Code(s): I49.9 - Cardiac arrhythmia, unspecified Status: Acute Assessment and Plan: Consistent with paroxysmal Atril Fib. Patient HR up to 170 on 11/27 but converted to NSR with Lopressor IV once. Patient started on Toprol XL and dose given early this mroning due to recurrent tachycardia. Continue Metoprolol at current dose. Unable to advance due to the bradycardia at times. Continue tele. Plan for ASA only for stroke prevention. Appreciate Cardiology input. (2) Epigastric pain: Code(s): R10.13 - Epigastric pain Status: Acute Assessment and Plan: Epigastric/atypical chest pain. Chest tightness was continuous and felt related to the viral picture with the wheezing. Elevated Trop noted and ACS was considered but felt less likely. Now liver enzymes, lipase and Bili elevated. CT Abdomen on admission showing chronic mild fat stranding surrounding the gallbladder but no pancreatitis. RUQ US noted and concerning for choledochylithiasis. MRCP 11/30/19 showing cholelithiasis with mild gallbladder distention and mild pericholecystic fat stranding, both of which are chronic, likely reflecting chronic cholecystitis but no CBD stones or strictures. There is a mass effect on he mid CBD by a cystic mass at the head of the pancreas. Labs are better today including the Lipase and Bili. Pt probably passed a gallstone? Appreciate GI input. Continue Protonix. General surgery consult and discussed. (3) Elevated LFTs: Code(s): R94.5 - Abnormal results of liver function studies Status: Acute Assessment and Plan: As above. (4) Elevated troponin: Code(s): R79.89 - Other specified abnormal findings of blood chemistry Status: Acute Assessment and Plan: Troponin peaked at 0.073 and is trending downward. Etiology unclear but could be related to intermittent tachy-arrhythmias. Echo results showing EF 60% otherwise unremarkable; no regional wall motion abnormality. Heparin drip stopped. Appreciate Cardiology input. (5) Cough: Code(s): R05 - Cough Status: Acute Assessment and Plan: Patient with probably viral syndrome/Acute Bronchitis with cough and worsening wheezing. Cough and wheezing better with nebs and steroids. CT chest showing no infiltrative process to suggest PNA. Sputum Cx pending. Pertussis negative. She has completed Azithro. Continue pulmozyme, steroids and Xopenex. (6) HTN (hypertension) with goal to be determined: Code(s): I10 - Essential (primary) hypertension Status: Chronic Assessment and Plan: BP reviewed on 12/01/19. BP well controlled. Not on anti-HTN meds at home. Metoprolol started and BP tolerating it. Continue with PRN labetalol w/ parameters. (7) Ventral hernia: Qualifiers: Obstruction and gangrene presence: without obstruction or gangrene Qualified Code(s): K43.9 - Ventral hernia without obstruction or gangrene Code(s): K43.9 - Ventral hernia without obstruction or gangrene Status: Chronic Assessment and Plan: Large parastomal hernia without change when compared to CT in November 2018. Transverse colon nonobstructed. MRCP on 11/29 showing large volume of colonic stool is present. Miralax started and now having small amount of stool output (8) History of colon cancer: Code(s): Z85.038 - Personal history of other malignant neoplasm of large intestine Status: Chronic Assessment and Plan: Patient has a history of colon cancer s/p resection with colostomy and known pulmonary mets. CT of the chest showing slight interval decrease in size of a RML nodule which measures up to 1.8 cm (previously 2.2cm). A 1.0 cm nodule of the right middle lobe previously measured 1.4 cm. There is a stable 1 cm nodule of the right lower lobe. Patient had recent XRT treatment last month x5 treatments.
--- NOTE | 2019-12-01 14:35 | PM.CNGS ---
Assessment and Plan Assessment and plan (1) Cholelithiasis with chronic cholecystitis: Code(s): K80.10 - Calculus of gallbladder with chronic cholecystitis without obstruction Status: Acute Assessment and Plan: suggested by ultrasound with gallbladder wall thickening but no sonographic Thomas sign. Has numerous gallstones. (2) Acute biliary pancreatitis without infection or necrosis: Code(s): K85.10 - Biliary acute pancreatitis without necrosis or infection Status: Acute Assessment and Plan: Probably passed a gallstone. Had abrupt onset and fairly rapid resolution of elevated LFTs and elevated serum lipase. Now resolved with no abdominal pain and patient tolerating low-fat diet well. I discussed the problem inherent with this. If her gallstones bladder is left in place, it is likely she will get pancreatitis again. We discussed whether to address this at this admission or later as an outpatient. She would prefer to do this while she is here. It is medically preferable to do this sooner rather than later as well. I discussed the procedure of laparoscopic cholecystectomy with her. Due to her large peristomal hernia, it is certainly possible that this may have to be converted to an open cholecystectomy. I discussed this as well. I also talked to Dr. Arndt and medically she is much improved and optimized to the point where she could go ahead with surgery. We will tentatively plan to do this Monday12/03/2019 in the afternoon. Will discuss again further tomorrow. (3) Parastomal hernia without obstruction or gangrene: Code(s): K43.5 - Parastomal hernia without obstruction or gangrene Status: Acute Assessment and Plan: Has gotten larger and patient does have constipation. Would be a significant procedure and I would advise she return to [facility] if she would like to have this repaired. (4) History of rectal cancer: Code(s): Z85.048 - Personal history of other malignant neoplasm of rectum, rectosigmoid junction, and anus Status: Acute (5) Secondary malignancy of right lung: Code(s): C78.01 - Secondary malignant neoplasm of right lung Status: Acute Assessment and Plan: Metastatic rectal cancer. Received 3 radiation treatments earlier this year. No further treatments are planned now. (6) Paroxysmal atrial fibrillation with rapid ventricular response: Code(s): I48.0 - Paroxysmal atrial fibrillation Status: Acute Assessment and Plan: Seems to be controlled with metoprolol. She is also on aspirin for stroke prevention. History of Present Illness Consult details Consult date: 12/01/19 Reason for consult: gallstones (Biliary pancreatitis) Narrative: the patient is an 84-year-old woman who Who came to [place] emergency room on November 24 with a band of pain that started in the epigastrium and went around the left side under her left breast. It was associated with severe nausea and some dry heaves. She had some elevation in her troponin and was admitted with Cardiology consultation and cardiac workup. Her echo was basically negative. She did then developed rapid atrial fibrillation which has been controlled with metoprolol. She is not on any anticoagulation other than aspirin for stroke prevention. Three days after admission she was noted to possibly be jaundiced. Bilirubin was checked and was elevated at 4.3. Her lipase was also elevated at 862. The next day or lipase was higher at 1500. She had an ultrasound of the gallbladder which showed stones and a somewhat dilated common bile duct. Justice quickly, her liver enzymes, bilirubin, and lipase went back to normal. They have been normal both yesterday and today. She was seen by Dr. Laura and had an MRCP. It appears she had biliary pancreatitis which has resolved. There is some evidence of chronic cholecystitis. She is currently eating well on a low-fat diet. She does
--- NOTE | 2019-12-01 15:11 | PM.PNCARD ---
Progress Note: A&P Assessment and Plan (1) History of colon cancer: Code(s): Z85.038 - Personal history of other malignant neoplasm of large intestine Status: Chronic Assessment and Plan: pt with hx of colon ca with mets fu by PC, GI, and oncology (2) Elevated troponin: Code(s): R79.89 - Other specified abnormal findings of blood chemistry Status: Acute Assessment and Plan: pt with borderline troponin no acute EKG changes cont medical management with aspirin and metoprolol and continue with risk factor modification LDL 70 this admission and statin not initiated in setting of elevated hepatic transaminases with gallbladder and pancreatic inflammation. (3) Epigastric pain: Code(s): R10.13 - Epigastric pain Status: Acute Assessment and Plan: most probably related to underlying abdominal process (4) Arrhythmia: Code(s): I49.9 - Cardiac arrhythmia, unspecified Status: Acute (5) Paroxysmal atrial fibrillation with rapid ventricular response: Code(s): I48.0 - Paroxysmal atrial fibrillation Status: Acute Assessment and Plan: she had 2 episodes of paroxysmal atrial fibrillation with significant tachycardia to 150 beats per minute, converted to sinus rhythm spontaneously, and will continue on metoprolol 25 mg p.o. daily. Would not increase dose of metoprolol succinate from 25 mg daily given intermittent resting heart rate overnight in bed at 40-45 beats per minute. If she continues to have problems with rapid ventricular response alternating with marked resting bradycardia, she may have sick sinus syndrome and could be considered for a pacemaker, although this consideration would depend on her life expectancy in the setting of her underlying metastatic colon cancer. She needs to be on full-dose aspirin, as she is not a candidate for anticoagulation due to her other comorbidities. Subjective Date/time seen: 12/01/19 15:11 Interval history: 84yo female with metastatic colon CA to the lung with recent XRT treatment to the lung here for CP and cough. Feeling well now. No CP or SOB. No dizziness. She had a 2nd episode of paroxysmal atrial fibrillation with rapid ventricular response overnight 12/01/2019 with heart rate elevated to 150 beats per minute, and with subsequent spontaneous conversion to normal sinus rhythm. She also had episodes overnight in bed of sinus bradycardia with heart rate as low as 40-45 beats per minute. She was asymptomatic overnight. Patient was seen and examined, chart reviewed, case discussed with nurse. Review of Systems Review of Systems: All systems reviewed & are unremarkable except as noted in HPI and below Constitutional: Constitutional: Reports as per HPI, Denies fatigue and Denies headache(s) Eyes: Eyes: Reports as per HPI and Denies blurry vision ENT: Reports system reviewed and no additional complaints, except as documented, Reports as per HPI, Reports Normal hearing present and Denies headache(s) Cardiovascular: Cardiovascular: Reports as per HPI, Denies chest pain, Denies diaphoresis, Denies pedal edema, Denies leg edema, Denies lightheadedness, Denies palpitations and Denies dyspnea Respiratory: Respiratory: Reports as per HPI, Denies cough and Denies dyspnea Gastrointestinal: Gastrointestinal: Reports as per HPI, Reports abdominal pain, Reports nausea and Denies vomiting Genitourinary: Genitourinary: Reports as per HPI Musculoskeletal: Musculoskeletal: Reports as per HPI and Denies back pain Neurologic: Reports Normal hearing present and Denies headache(s) Psychiatric: Psychiatric: Denies anxiety Endocrine: Endocrine: Denies fatigue and Denies palpitations Exam Const: General: no acute distress Nutritional Appearance: well nourished Orientation/consciousness: patient oriented x3 HENMT: Head: normal to inspection and atraumatic Ears: hearing grossly normal bilaterally Face and sinus: normal
--- NOTE | 2019-12-01 16:25 | WPDANESEPP ---
Anes - Eval Pre Procedure Procedure: lap cholecystectomy Date/Time: 12/01/19 16:25 Surgeon: Joe Pre Op Diagnosis: chest pain,elevation in troponin Patient Data Age: 84 Gender: F Height: 1.6 m Weight: 77.4 kg Last Vital Signs Temp 36.3 C L 12/01/19 16:00 Pulse 70 12/01/19 16:00 Resp 22 H 12/01/19 16:00 BP 138/59 L 12/01/19 16:00 Pulse Ox 98 12/01/19 16:00 Allergies Allergy/AdvReac Type Severity Reaction Status Date / Time No Known Allergies Allergy Unknown Unverified 11/25/19 16:55 Home Medications Medication Instructions Recorded Confirmed Type aspirin 81 mg tablet,delayed 81 mg PO DAILY 09/20/19 11/26/19 History release ergocalciferol (vitamin D2) 1,250 50,000 unit PO WEEKLY 09/20/19 11/26/19 History mcg (50,000 unit) capsule psyllium husk 0.4 gram capsule 0.4 gm PO DAILY 09/20/19 11/26/19 History vitamin B complex 1 cap PO DAILY 09/20/19 11/26/19 History Laboratory Tests 12/01/19 12/01/19 04:20 04:20 WBC 7.5 K/mm3 K/mm3 (4.5-10.0) RBC 3.61 M/mm3 L M/mm3 (4.2-5.4) Hgb 11.0 g/dL L g/dL (12.0-15.0) Hct 33.9 % L % (37.0-47.0) MCV 93.9 fl fl (80-100) MCH 30.5 pg pg (26-34) MCHC 32.4 g/dl g/dl (32-36) RDW 14.6 % H % (11.5-14.5) Plt Count 180 k/mm3 k/mm3 (150-375) MPV 12.1 fl H fl (7.4-10.4) Sodium 138 mmol/L mmol/L (137-145) Potassium 4.3 mmol/L mmol/L (3.4-5.0) Chloride 105 mmol/L mmol/L (98-107) Carbon Dioxide 27 mmol/L mmol/L (22-30) BUN 21 mg/dL H mg/dL (7-17) Creatinine 0.70 mg/dL mg/dL (0.7-1.0) Estim Creat Clear Calc 52 ml/min ml/min Estimated GFR > 60 (59 - ) Glucose 119 mg/dL H mg/dL (65-105) Calcium 8.5 mg/dL mg/dL (8.4-10.2) Total Bilirubin 0.7 mg/dL mg/dL (0.2-1.3) AST 24 U/L U/L (14-36) ALT 51 U/L H U/L (4-35) Alkaline Phosphatase 82 U/L U/L (38-126) Total Protein 7.0 g/dL g/dL (6.3-8.2) Albumin 3.2 g/dL L g/dL (3.5-5.1) Lipase 137 U/L U/L (23-300) Patient hx anesthesia problems: none Family hx anesthesia problems: none PMFSH Past Medical History Medical History (Updated 12/01/19 @ 14:57 by Sedrick Diaz MD) Anal cancer Arthritis Bronchitis Cataract Removed Chronic tension-type headache, not intractable Colostomy in place Constipation Depression 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 GI bleed Glaucoma Gout Heartburn Hemorrhoids Hyperlipidemia Kidney infection Lung cancer right Measles Osteoarthritis Parkinsons disease Pneumonia Rectal polyp Recurrent UTI UTI (urinary tract infection) Surgical History Surgical History (Updated 12/01/19 @ 16:28 by Micki Sood CRNA) H/O hemorrhoidectomy H/O partial resection of colon H/O removal of cyst From ovaries History of appendectomy Hx of cataract removal with insertion of prosthetic lens Hx of tonsillectomy Family History Family History Sibling Family history of lung cancer Family history of emphysema Nervous breakdown Father Family history of heart disease in male family member before age 55 Mother Family history of heart disease in male family member before age 55 Other Hypertension Social History Social History Smoking status: Never smoker Alcohol intake: current Drinks per week: 2 Substance use: never Gender identity (if verbalized by the patient): Female Spiritual care concerns: No Agree to blood products: Yes Exam Day of Procedure 12/01/19 16:25
[2019-12-02] VITALS (24 sets, daily range): BP systolic 126–162; BP diastolic 46–71; PULSE 51–89; RESP 16–22; TEMP 36.2–36.7; O2SAT 94–98
[2019-12-02] MEDS: LEVALBUTEROL NEB 1.25 MG/3 ML 0.63 MG INHALATION ×4 (02:43→20:36)
[2019-12-02 05:06] LABS: Blood Urea Nitrogen 21 mg/dL (7-17); Calcium 8.2 mg/dL (8.4-10.2); Carbon Dioxide 28 mmol/L (22-30); Chloride 104 mmol/L (98-107); Estimated CRCL calculation 60 ml/min; Estimated Glomerular Filt Rate > 60; Glucose 87 mg/dL (65-105); Magnesium 2.5 mg/dL (1.6-2.3); Potassium 3.5 mmol/L (3.4-5.0); Sodium 134 mmol/L (137-145)
--- NOTE | 2019-12-02 07:35 | WPDCDIQUERY2 ---
CDI Query Clarification Request -Dr Laura has documented Impression resolving pancreatitis felt to be secondary to gallstones. -Dr Diaz has documented Acute biliary pancreatitis without infection or necrosis -11/27 lipase 862, 11/28 lipase 1507 -No documentation of pancreatitis by hospitalist Please clarify if acute pancreatitis has been ruled in or ruled out. <Ama Rueda RN - Last Filed: 12/02/19 07:40>
[2019-12-02] MEDS: ENOXAPARIN 40 MG/0.4 ML SYRINGE SUB-Q (07:56)
[2019-12-02] MEDS: predniSONE 20 MG TABLET 40 MG PO (07:56)
[2019-12-02] MEDS: PSYLLIUM POWDER PACKET 1 PACKET PO (07:56)
[2019-12-02] MEDS: PANTOPRAZOLE 40 MG TABLET PO (07:56)
[2019-12-02] MEDS: polyethylene glycoL 3350 17 GM POWD.PACK PO (07:56)
[2019-12-02] MEDS: METOPROLOL SUCCINATE EXT REL 25 MG TABCR PO (07:57)
[2019-12-02] MEDS: ERGOCALCIFEROL 50,000 UNIT CAPSULE 50000 UNITS PO (07:57)
[2019-12-02] MEDS: ASPIRIN 81 MG ENTERIC TABLET 324 MG PO (07:57)
[2019-12-02] MEDS: TOLNAFTATE 1% POWDER 45 GM BTL 1 APPLIC TOPICAL ×2 (07:58→20:23)
[2019-12-02] MEDS: VITAMIN B COMPLEX CAPSULE 1 CAP PO (07:58)
[2019-12-02] MEDS: DORNASE ALFA INH SOLN 1 MG/ML 2.5 ML AMP 2.5 MG INHALATION (08:23)
--- NOTE | 2019-12-02 10:34 | PM.IMPN ---
Progress Note: A&P Assessment and Plan (1) Cholelithiasis with chronic cholecystitis: Qualifiers: Biliary obstruction: with biliary obstruction Cholelithiasis location: gallbladder and bile duct Qualified Code(s): K80.65 - Calculus of gallbladder and bile duct with chronic cholecystitis with obstruction Code(s): K80.10 - Calculus of gallbladder with chronic cholecystitis without obstruction Status: Acute Assessment and Plan: Epigastric/atypical left sided chest pain. Chest tightness was continuous and felt related to the viral picture with the wheezing. Elevated Trop noted and ACS was considered but felt less likely. CT Abdomen on admission showing chronic mild fat stranding surrounding the gallbladder but no pancreatitis. Liver enzymes, lipase and Bili normally initially but then became elevated. RUQ US noted and concerning for choledochylithiasis. MRCP 11/30/19 showing cholelithiasis with mild gallbladder distention and mild pericholecystic fat stranding, both of which are chronic, likely reflecting chronic cholecystitis but no CBD stones or strictures. There is a mass effect on the mid CBD by a cystic mass at the head of the pancreas. Labs were better yesterday with normal Lipase and Bili. Pt probably passed a gallstone. Discussed with General Surgery who (after review of the chart) felt patietn could proceed with cholecystectomy. Appreciate GI and General Surgery help. Continue Protonix. Plan for cholecystectomy tomorrow. (2) Paroxysmal atrial fibrillation with rapid ventricular response: Code(s): I48.0 - Paroxysmal atrial fibrillation Status: Acute Assessment and Plan: Patient HR up to 170 on 11/27 but converted to NSR with Lopressor IV once. Patient started on Toprol XL and rhytm overall remaining stable. Continue Metoprolol at current dose. Unable to advance due to the bradycardia at times. Continue tele. Plan for ASA only for stroke prevention. Appreciate Cardiology input. (3) Elevated LFTs: Code(s): R94.5 - Abnormal results of liver function studies Status: Acute Assessment and Plan: As above. (4) Acute biliary pancreatitis without infection or necrosis: Code(s): K85.10 - Biliary acute pancreatitis without necrosis or infection Status: Acute Assessment and Plan: As above. (5) Elevated troponin: Code(s): R79.89 - Other specified abnormal findings of blood chemistry Status: Acute Assessment and Plan: Troponin peaked at 0.073 and is trending downward. Etiology unclear but could be related to intermittent tachy-arrhythmias. Echo results showing EF 60% otherwise unremarkable; no regional wall motion abnormality. Heparin drip stopped. Appreciate Cardiology input. (6) Acute bronchitis: Qualifiers: Bronchitis organism: unspecified organism Qualified Code(s): J20.9 - Acute bronchitis, unspecified Code(s): J20.9 - Acute bronchitis, unspecified Status: Acute Assessment and Plan: Patient with probably viral syndrome/Acute Bronchitis with cough and worsening wheezing. Cough and wheezing much better with nebs and steroids. CT chest showing no infiltrative process to suggest PNA. Sputum Cx still pending. Pertussis negative. She has completed Azithromycin. Will continue Xopenex. Okay to stop Pulmozyme. Will stop steroids due to upcoming surgery and follow clinincally. Resume steroids if starts to wheeze again. (7) HTN (hypertension) with goal to be determined: Code(s): I10 - Essential (primary) hypertension Status: Chronic Assessment and Plan: BP reviewed on 12/02/19. BP has been well controlled except this morning with BP at 162/71. Not on anti-HTN meds at home. Currently on Metoprolol and received her dose at the time of that BP. Will see how her BP does today. Continue with PRN labetalol w/ parameters. (8) Parastomal hernia withou
--- NOTE | 2019-12-02 10:45 | PM.PNGS ---
Progress Note: A&P Assessment and Plan (1) Acute biliary pancreatitis without infection or necrosis: Code(s): K85.10 - Biliary acute pancreatitis without necrosis or infection Status: Acute Assessment and Plan: We will proceed with laparoscopic cholecystectomy tomorrow under anesthesia. I discussed the procedure the risks the benefits with the patient. All questions were answered. She understands and wishes to go ahead. (2) Cholelithiasis with chronic cholecystitis: Qualifiers: Cholelithiasis location: gallbladder and bile duct Biliary obstruction: with biliary obstruction Qualified Code(s): K80.65 - Calculus of gallbladder and bile duct with chronic cholecystitis with obstruction Code(s): K80.10 - Calculus of gallbladder with chronic cholecystitis without obstruction Status: Acute (3) Parastomal hernia without obstruction or gangrene: Code(s): K43.5 - Parastomal hernia without obstruction or gangrene Status: Acute (4) History of rectal cancer: Code(s): Z85.048 - Personal history of other malignant neoplasm of rectum, rectosigmoid junction, and anus Status: Acute (5) Secondary malignancy of right lung: Code(s): C78.01 - Secondary malignant neoplasm of right lung Status: Acute Subjective Subjective Date/Time Seen: 12/02/19 10:45 Patient reports: no new complaints, feels better, pain is less ( No abdominal pain) and bowel movement ( having a lot of colostomy output now. Some cramping associated.) Review of Systems Review of Systems: All systems reviewed & are unremarkable except as noted in HPI and below Constitutional: Constitutional: Denies headache(s) ENT: Denies headache(s) Cardiovascular: Cardiovascular: Denies chest pain and Denies dyspnea Respiratory: Respiratory: Denies cough and Denies dyspnea Gastrointestinal: Gastrointestinal: Reports as per HPI Neurologic: Denies confusion and Denies headache(s) Psychiatric: Psychiatric: Denies confusion Exam Const: General: comfortable and no acute distress; No confusion Orientation/consciousness: patient oriented x3 and No confusion Resp: Effort & Inspection: normal respiratory effort Auscultation: clear to auscultation bilaterally Cardio: Rate: regular rate Rhythm: regular rhythm GI: Inspection: non-distended, obesity, scar and visible herniation GI Palp: Yes Soft to palpation, No Tenderness to palpation present (GI), No Guarding due to palpation present (GI) and No Rebound tenderness present Auscultation: normal bowel sounds Neuro: General: patient oriented x3, no focal motor deficits and No confusion Extrem: General: no calf tenderness and no edema Psych: Affect: normal affect Insight: Good insight present (Psych) Judgement: Good judgement present (Psych) Objective Data Vital Signs Vital Signs: Vital Signs - 24 hr 12/01/19 12:00 12/01/19 14:00 12/01/19 14:20 Temperature 36.1 C L Pulse Rate 76 78 64 Respiratory Rate 20 20 Blood Pressure 147/55 H Pulse Oximetry 99 12/01/19 14:30 12/01/19 16:00 12/01/19 18:00 Temperature 36.3 C L Pulse Rate 67 70 74 Respiratory Rate 20 22 H Blood Pressure 138/59 L Pulse Oximetry 98 12/01/19 19:30 12/01/19 20:00 12/01/19 21:19 Temperature 36.2 C L Pulse Rate 60 65 67 Respiratory Rate 18 18 Blood Pressure 135/63 Pulse Oximetry 97 12/01/19 21:32 12/01/19 22:00 12/01/19 23:17 Temperature 36.3 C L Pulse Rate 66 65 57 L Respiratory Rate 18 18 Blood Pressure 139/57 L Pulse Oximetry 98 12/02/19 00:00 12/02/19 02:00 12/02/19 02:43 Temperature Pulse Rate 61 57 L 59 L Respiratory Rate 16 Blood Pressure Pulse Oximetry 12/02/19 02:53 12/02/19 04:00 12/02/19 04:58 Temperature 36.3 C L Pulse Rate 62 63 62 Respiratory Rate 18 18 Blood Pressure 131/57 L Pulse Oximetry 97 12/02/19 06:00 12/02/19 07:57 12/02/19 08:00 Temperature 36.2 C L Pulse Rate
--- NOTE | 2019-12-02 11:07 | WPDGIPROGNO ---
Progress Note: A&P Additional Plan Patient alert and comfortable this morning. Denies abdominal pain. Physical exam reveals patient be alert. Vital signs are stable. HEENT exam she is anicteric. Lungs reveal a few rhonchi. Heart without murmur. Abdomen is soft large ventral hernia around her stoma. Colostomy in place. Labs reveal LFTs have improved dramatically. Albumin 3.2. Lipase 137 now normal. Impression 1. Cholelithiasis. 2. Resolved pancreatitis. Lipase is normalized. She probably passed a common bile duct gallstones. MRCP now clear CBD noted. 3. History of colon cancer with lung metastases. 4. 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 Plan is for surgical follow-up for cholecystectomy. Dr. Diaz is seen the patient with anticipated surgery. Low-fat diet advised otherwise. Subjective Date/time seen: 12/02/19 11:07 Objective Data Vital Signs Vital Signs: Vital Signs - 24 hr 12/01/19 12:00 12/01/19 14:00 12/01/19 14:20 Temperature 36.1 C L Pulse Rate 76 78 64 Respiratory Rate 20 20 Blood Pressure 147/55 H Pulse Oximetry 99 12/01/19 14:30 12/01/19 16:00 12/01/19 18:00 Temperature 36.3 C L Pulse Rate 67 70 74 Respiratory Rate 20 22 H Blood Pressure 138/59 L Pulse Oximetry 98 12/01/19 19:30 12/01/19 20:00 12/01/19 21:19 Temperature 36.2 C L Pulse Rate 60 65 67 Respiratory Rate 18 18 Blood Pressure 135/63 Pulse Oximetry 97 12/01/19 21:32 12/01/19 22:00 12/01/19 23:17 Temperature 36.3 C L Pulse Rate 66 65 57 L Respiratory Rate 18 18 Blood Pressure 139/57 L Pulse Oximetry 98 12/02/19 00:00 12/02/19 02:00 12/02/19 02:43 Temperature Pulse Rate 61 57 L 59 L Respiratory Rate 16 Blood Pressure Pulse Oximetry 12/02/19 02:53 12/02/19 04:00 12/02/19 04:58 Temperature 36.3 C L Pulse Rate 62 63 62 Respiratory Rate 18 18 Blood Pressure 131/57 L Pulse Oximetry 97 12/02/19 06:00 12/02/19 07:57 12/02/19 08:00 Temperature 36.2 C L Pulse Rate 51 L 61 62 Respiratory Rate 22 H Blood Pressure 162/71 H Pulse Oximetry 97 12/02/19 08:23 12/02/19 08:30 12/02/19 10:00 Temperature Pulse Rate 61 89 62 Respiratory Rate 20 20 Blood Pressure Pulse Oximetry Intake/Output Intake/Output: Intake & Output 11/29/19 11/30/19 12/01/19 12/02/19 23:59 23:59 23:59 23:59 Intake Total 840 2982 3415 540 Output Total 416 723 0018 450 Balance 590 2282 2315 90 Meds/Results Medications: Active Medications Generic Name Dose Route Start Last Admin Trade Name Freq PRN Reason Stop Dose Admin Aspirin 324 mg 11/30/19 09:00 12/02/19 07:57 Aspirin Ec PO 324 mg DAILY [facility] Administration Calcium Carbonate 200 mg 11/27/19 09:36 11/28/19 15:01 Tums PO 200 mg Q6H PRN Administration Indigestion Dornase Josef 2.5 mg 11/30/19 20:00 12/02/19 08:23 Pulmozyme INHALATION 2.5 mg Q12HRT [facility] Administration Enoxaparin Sodium 40 mg 11/28/19 11:40 12/02/19 07:56 Lovenox SUB-Q 40 mg DAILY [facility] Administration Ergocalciferol 50,000 unit 12/02/19 09:00 12/02/19 07:57 Drisdol PO 50,000 unit Mo@0900 [facility] Administration Levalbuterol HCl 0.63 mg 11/27/19 15:10 12/02/19 08:22 Xopenex 1.25 Mg/3 Ml INHALATION 0.63 mg Q6HRT [facility] Administration Metoprolol Succinate 25 mg 11/30/19 09:00 12/02/19 07:57 Toprol Xl PO 25 mg QAM [facility] Administration Nitroglycerin 0.4 mg 11/25/19 21:06 Nitrostat Subl 0.4 Mg (1/150) SUBLINGUAL Q5MIN PRN Chest Pain Pantoprazole Sodium 40 mg 11/28/19 09:00 12/02/19 07:56 Protonix PO 40 mg QAM [facility] Administration Polyethylene Glycol 17 gm 12/03/19 09:00 Miralax PO QAM [facility] Prednisone 40 mg 12/01/19 08:00 12/02/19 07:56 Prednisone PO 40 mg DAILY@0800 [facility] Administration Psyllium Hydrophilic Mucilloid 1 packet 11/26/19 09:00 12/02/19 07:56 Metamucil Packet PO 1 packet DAILY [facility]
--- NOTE | 2019-12-02 17:02 | PM.PNCARD ---
Progress Note: A&P Assessment and Plan (1) Paroxysmal atrial fibrillation with rapid ventricular response: Code(s): I48.0 - Paroxysmal atrial fibrillation Status: Acute Assessment and Plan: She had episodes of AFIB however converted to NSR and remains in NSR cont current meds which she tolerates well (HR 60's) ECHO showed normal LV systolic function monitor electrolytes and kidney function pt is not a good candidate for systemic anticoagulation cont ASA if OK with surgery (2) History of colon cancer: Code(s): Z85.038 - Personal history of other malignant neoplasm of large intestine Status: Chronic (3) HTN (hypertension) with goal to be determined: Code(s): I10 - Essential (primary) hypertension Status: Chronic (4) Epigastric pain: Code(s): R10.13 - Epigastric pain Status: Acute Assessment and Plan: pt with hx of colon ca with mets Fu by PC, GI and oncology (5) Elevated troponin: Code(s): R79.89 - Other specified abnormal findings of blood chemistry Status: Acute Assessment and Plan: Pt with borderline troponin No acute EKG changes cont medical management and risk factor modification statin not initiated due to underlying liver problems (6) Cholelithiasis with chronic cholecystitis: Qualifiers: Biliary obstruction: with biliary obstruction Cholelithiasis location: gallbladder and bile duct Qualified Code(s): K80.65 - Calculus of gallbladder and bile duct with chronic cholecystitis with obstruction Code(s): K80.10 - Calculus of gallbladder with chronic cholecystitis without obstruction Status: Acute Assessment and Plan: Surgery following Plan for cholecystectomy in AM Subjective Date/time seen: 12/02/19 17:02 Pt feels fine today, no CP, SOB or palpitations. States that is going for surgery in AM. Pt was seen and examined, chart was reviewed, case was d/w pt's nurse. Pt remains in NSR. Review of Systems Review of Systems: All systems reviewed & are unremarkable except as noted in HPI and below Constitutional: Constitutional: Reports as per HPI Eyes: Eyes: Reports as per HPI ENT: Reports system reviewed and no additional complaints, except as documented and Reports as per HPI Cardiovascular: Cardiovascular: Reports as per HPI Respiratory: Respiratory: Reports as per HPI Gastrointestinal: Gastrointestinal: Reports as per HPI Genitourinary: Genitourinary: Reports as per HPI Musculoskeletal: Musculoskeletal: Reports as per HPI Exam Const: General: no acute distress Nutritional Appearance: well nourished Orientation/consciousness: patient oriented x3 HENMT: Head: normal to inspection and atraumatic Ears: hearing grossly normal bilaterally Face and sinus: normal facial exam Eyes: General: appearance normal, both eyes and all related structures Pupils: Equal, round and reactive pupils present EOM: EOMs intact bilaterally Neck: Neck: supple Chest: Chest palpation & inspection: normal inspection of the chest Resp: Effort & Inspection: normal respiratory effort and no respiratory distress Auscultation: clear to auscultation bilaterally Cardio: Jugular venous distension: no JVD Rate: regular rate Heart sounds: S1 normal heart sound present, S2 normal heart sound present and no murmurs Peripheral pulses: Peripheral pulses 2+ throughout GI: GI Palp: No abdominal tenderness Auscultation: normal bowel sounds Skin: General skin exam: normal color Neuro: General: patient oriented x3 Cranial nerves: Yes Equal, round and reactive pupils present Extrem: General: normal to inspection and no clubbing, cyanosis or edema Objective Data Vital Signs Vital Signs: Vital Signs - 24 hr 12/01/19 18:00 12/01/19 19:30 12/01/19 20:00 Temperature 36.2 C L Pulse Rate 74 60 65 Respiratory Rate 18 Blood Pressure 135/63 Pulse Oximetry 97 12/01/19 21:19 12/01/19 21:32 12/01/19 22:0
[2019-12-02] MEDS: POTASSIUM CHLORIDE 20 MEQ PACKET (FOR LIQUID) PO (17:56)
[2019-12-03] VITALS (33 sets, daily range): BP systolic 121–154; BP diastolic 43–60; PULSE 47–67; RESP 17–22; TEMP 36.5–37.2; O2SAT 92–98
[2019-12-03] MEDS: LEVALBUTEROL NEB 1.25 MG/3 ML 0.63 MG INHALATION ×3 (02:01→20:14)
[2019-12-03 04:51] LABS: Hematocrit 34.5 % (37.0-47.0); Hemoglobin 11.3 g/dL (12.0-15.0); Mean Corpuscular HGB Conc 32.8 g/dl (32-36); Mean Corpuscular Hemoglobin 30.6 pg (26-34); Mean Corpuscular Volume 93.5 fl (80-100); Mean Platelet Volume 12.5 fl (7.4-10.4); Platelet Count Result 176 k/mm3 (150-375); Red Blood Count 3.69 M/mm3 (4.2-5.4); Red Cell Distribution Width 14.1 % (11.5-14.5); White Blood Count 5.5 K/mm3 (4.5-10.0)
[2019-12-03 05:13] LABS: Alanine Aminotransferase 59 U/L (4-35); Alkaline Phosphatase 76 U/L (38-126); Aspartate Amino Transferase 36 U/L (14-36); Bilirubin,Total 0.6 mg/dL (0.2-1.3); Blood Urea Nitrogen 15 mg/dL (7-17); Calcium 8.1 mg/dL (8.4-10.2); Carbon Dioxide 29 mmol/L (22-30); Chloride 103 mmol/L (98-107); Estimated CRCL calculation 52 ml/min; Estimated Glomerular Filt Rate > 60; Glucose 87 mg/dL (65-105); Lipase 274 U/L (23-300); Potassium 4.1 mmol/L (3.4-5.0); Sodium 136 mmol/L (137-145)
[2019-12-03] MEDS: METOPROLOL SUCCINATE EXT REL 25 MG TABCR PO (09:42)
[2019-12-03] MEDS: PANTOPRAZOLE 40 MG TABLET PO (09:42)
[2019-12-03] MEDS: ASPIRIN 81 MG ENTERIC TABLET 324 MG PO (09:42)
[2019-12-03] MEDS: VITAMIN B COMPLEX CAPSULE 1 CAP PO (09:43)
[2019-12-03] MEDS: TOLNAFTATE 1% POWDER 45 GM BTL 1 APPLIC TOPICAL ×2 (09:43→21:11)
--- NOTE | 2019-12-03 10:39 | WPDGIPROGNO ---
Progress Note: A&P Additional Plan Patient alert this morning. Denies abdominal pain. Physical exam reveals left-sided colostomy with peristomal hernia. Abdomen otherwise soft and nontender with no organomegaly. Impression 1. Cholelithiasis. MRCP reveals no common bile duct gallstones. 2. Pancreatitis. Elevated lipase has now normalized. Suspicious for passage of a common bile duct gallstone. 3. Colon cancer. Resected with colostomy. Now with lung metastases. Plan I understand cholecystectomy is anticipated. Dr. Diaz is following the patient. Subjective Date/time seen: 12/03/19 10:39 Objective Data Vital Signs Vital Signs: Vital Signs - 24 hr 12/02/19 11:56 12/02/19 12:00 12/02/19 14:00 Temperature 36.4 C Pulse Rate 66 64 57 L Respiratory Rate 22 H Blood Pressure 144/59 H Pulse Oximetry 94 12/02/19 14:49 12/02/19 14:57 12/02/19 16:00 Temperature 36.3 C L Pulse Rate 67 60 65 Respiratory Rate 20 20 22 H Blood Pressure 128/61 Pulse Oximetry 98 12/02/19 17:55 12/02/19 19:25 12/02/19 20:00 Temperature 36.5 C Pulse Rate 63 80 66 Respiratory Rate 20 Blood Pressure 134/53 L Pulse Oximetry 97 12/02/19 20:37 12/02/19 22:00 12/02/19 23:36 Temperature 36.7 C Pulse Rate 67 63 54 L Respiratory Rate 20 20 Blood Pressure 126/46 L Pulse Oximetry 97 12/03/19 00:00 12/03/19 02:00 12/03/19 02:02 Temperature Pulse Rate 48 L 49 L 65 Respiratory Rate 20 Blood Pressure Pulse Oximetry 12/03/19 02:10 12/03/19 04:00 12/03/19 04:26 Temperature 36.7 C Pulse Rate 67 52 L 53 L Respiratory Rate 20 20 Blood Pressure 141/49 H Pulse Oximetry 98 12/03/19 06:00 12/03/19 07:39 12/03/19 09:09 Temperature 36.5 C Pulse Rate 47 L 57 L 56 L Respiratory Rate 18 20 Blood Pressure 148/50 H Pulse Oximetry 98 12/03/19 09:18 12/03/19 09:42 Temperature Pulse Rate 59 L 64 Respiratory Rate 20 Blood Pressure Pulse Oximetry Intake/Output Intake/Output: Intake & Output 11/30/19 12/01/19 12/02/19 12/03/19 23:59 23:59 23:59 23:59 Intake Total 2982 3415 1270 200 Output Total 700 1100 1800 700 Balance 2282 6720 -388 -868 Meds/Results Medications: Active Medications Generic Name Dose Route Start Last Admin Trade Name Freq PRN Reason Stop Dose Admin Aspirin 324 mg 11/30/19 09:00 12/03/19 09:42 Aspirin Ec PO 324 mg DAILY [facility] Administration Calcium Carbonate 200 mg 11/27/19 09:36 11/28/19 15:01 Tums PO 200 mg Q6H PRN Administration Indigestion Enoxaparin Sodium 40 mg 11/28/19 11:40 12/02/19 07:56 Lovenox SUB-Q 40 mg DAILY [facility] Administration Ergocalciferol 50,000 unit 12/02/19 09:00 12/02/19 07:57 Drisdol PO 50,000 unit Mo@0900 [facility] Administration Lactated Ringer's 1,000 mls @ 30 mls/hr 12/03/19 06:50 Lr - Lactated Ringers Iv IV CONT .Q24H [facility] Levalbuterol HCl 0.63 mg 11/27/19 15:10 12/03/19 09:08 Xopenex 1.25 Mg/3 Ml INHALATION 0.63 mg Q6HRT [facility] Administration Metoprolol Succinate 25 mg 11/30/19 09:00 12/03/19 09:42 Toprol Xl PO 25 mg QAM [facility] Administration Nitroglycerin 0.4 mg 11/25/19 21:06 Nitrostat Subl 0.4 Mg (1/150) SUBLINGUAL Q5MIN PRN Chest Pain Pantoprazole Sodium 40 mg 11/28/19 09:00 12/03/19 09:42 Protonix PO 40 mg QAM [facility] Administration Polyethylene Glycol 17 gm 12/03/19 09:00 12/03/19 09:44 Miralax PO Not Given [facility] Psyllium Hydrophilic Mucilloid 1 packet 11/26/19 09:00 12/03/19 09:44 Metamucil Packet PO Not Given DAILY [facility] Tolnaftate 1 applic 11/29/19 21:00 12/03/19 09:43 Tolnaftate 1% Powder TOPICAL 1 applic Q12HR [facility] Administration Vitamin B Complex 1 cap 11/26/19 09:00 12/03/19 09:43 Vitamin B Complex PO 1 cap DAILY [facility] Administration Radiology Results: ITS Impressions Chest/Abdomen CTA 11/25/19 19:54 IMPRESSION: 1. No evidence of thorac
[2019-12-03] MEDS: LACTATED RINGERS 1,000 ML 30 ML IV CONT ×2 (12:45→15:45)
--- NOTE | 2019-12-03 13:25 | WPDANESEPPF ---
Anes - Initial Pre Proc Eval Procedure: Operation Date: 12/03/19 15:00 Proposed Procedures p Laparoscopic Cholecystectomy - Sedrick Diaz MD Date/Time: 12/03/19 13:25 Surgeon: Tanvir Arndt MD Pre Op Diagnosis: chest pain,elevation in troponin Patient Data Age: 84 Gender: F Height: 5 ft 3 in Weight: 78.4 kg Last Vital Signs Temp 37.2 C 12/03/19 12:46 Pulse 56 L 12/03/19 12:46 Resp 20 12/03/19 12:46 BP 146/54 H 12/03/19 12:46 Pulse Ox 98 12/03/19 12:46 Allergies Allergy/AdvReac Type Severity Reaction Status Date / Time No Known Allergies Allergy Unknown Unverified 12/03/19 12:56 Home Medications Medication Instructions Recorded Confirmed Type aspirin 81 mg tablet,delayed 81 mg PO DAILY 09/20/19 11/26/19 History release ergocalciferol (vitamin D2) 1,250 50,000 unit PO WEEKLY 09/20/19 11/26/19 History mcg (50,000 unit) capsule psyllium husk 0.4 gram capsule 0.4 gm PO DAILY 09/20/19 11/26/19 History vitamin B complex 1 cap PO DAILY 09/20/19 11/26/19 History Laboratory Tests 12/03/19 12/03/19 04:21 04:21 WBC 5.5 K/mm3 K/mm3 (4.5-10.0) RBC 3.69 M/mm3 L M/mm3 (4.2-5.4) Hgb 11.3 g/dL L g/dL (12.0-15.0) Hct 34.5 % L % (37.0-47.0) MCV 93.5 fl fl (80-100) MCH 30.6 pg pg (26-34) MCHC 32.8 g/dl g/dl (32-36) RDW 14.1 % % (11.5-14.5) Plt Count 176 k/mm3 k/mm3 (150-375) MPV 12.5 fl H fl (7.4-10.4) Sodium 136 mmol/L L mmol/L (137-145) Potassium 4.1 mmol/L mmol/L (3.4-5.0) Chloride 103 mmol/L mmol/L (98-107) Carbon Dioxide 29 mmol/L mmol/L (22-30) BUN 15 mg/dL D mg/dL (7-17) Creatinine 0.70 mg/dL mg/dL (0.7-1.0) Estim Creat Clear Calc 52 ml/min ml/min Estimated GFR > 60 (59 - ) Glucose 87 mg/dL mg/dL (65-105) Calcium 8.1 mg/dL L mg/dL (8.4-10.2) Total Bilirubin 0.6 mg/dL mg/dL (0.2-1.3) AST 36 U/L U/L (14-36) ALT 59 U/L H U/L (4-35) Alkaline Phosphatase 76 U/L U/L (38-126) Total Protein 6.0 g/dL L g/dL (6.3-8.2) Albumin 3.0 g/dL L g/dL (3.5-5.1) Lipase 274 U/L U/L (23-300) Patient hx anesthesia problems: other (prolonged emergence) Family hx anesthesia problems: none PMFSH Past Medical History Medical History Anal cancer Arthritis Bronchitis Cataract Removed Chronic tension-type headache, not intractable Colostomy in place Constipation Depression 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 GI bleed Glaucoma Gout Heartburn Hemorrhoids Hyperlipidemia Kidney infection Lung cancer right Measles Osteoarthritis Parkinsons disease Pneumonia Rectal polyp Recurrent UTI UTI (urinary tract infection) Surgical History Surgical History H/O hemorrhoidectomy H/O partial resection of colon H/O removal of cyst From ovaries History of appendectomy Hx of cataract removal with insertion of prosthetic lens Hx of tonsillectomy Family History Family History Sibling Family history of lung cancer Family history of emphysema Nervous breakdown Father Family history of heart disease in male family member before age 55 Mother Family history of heart disease in male family member before age 55 Other Hypertension Social History Social History Smoking status: Never smoker Alcohol intake: current Drinks per week: 2 Substance use: never Gender identity (if verbalized by the patient): Female Spiritual care concerns: No Agree to blood products: Yes Anes - Eval Final PreProcedure Day of Procedure 12/03/19 13:25 Patient weight: obese Heart: regular rate and rhythm Lungs: decreased breath sounds
[2019-12-03] MEDS: ceFAZolin 2 GM/D5W 50 ML 2 GM/50 ML BAG IVPB (13:30)
[2019-12-03] MEDS: BUPIVACAINE/EPINEPHRINE 0.5% 10 ML VIAL 20 ML INFILTRATE (14:12)
--- NOTE | 2019-12-03 15:34 | PM.PROC ---
Procedure Note - Detailed Date of procedure: 12/03/19 Pre-op diagnosis: Acute biliary pancreatitis Acute biliary pancreatitis Post-op diagnosis: same Procedure performed: Laparoscopic cholecystectomy Description of procedure: The patient was taken to surgery and induced into general anesthesia. The colostomy bag and surrounding skin were quarantined. The rest of the abdomen was prepped and draped. The initial trocar was a Reynaldo cannula in the epigastric area. Once this was in position, we were able to insufflate and see the peritoneal contents. The remaining laparoscopic cholecystectomy ports were placed under direct visualization. The peristomal hernia was reviewed from the patient's right side. As expected, it was quite large. It had reduced intraoperatively. The gallbladder was encased with adhesions. The liver had fatty change and was easily disrupted and bled. Adhesions around the gallbladder were taken down. Eventually the fundus of the gallbladder was freed enough that we could use a laparoscopic aspirator. The aspirator was used to decompress the gallbladder. The gallbladder wall was quite thickened as well. There were numerous small stones in the gallbladder. The gallbladder was then retracted anterosuperiorly. We took down the remaining numerous adhesions to the gallbladder eventually exposing the infundibulum and cholecystohepatic triangle. The gallbladder itself was easily torn and a couple of holes were made simply by grasping it. A few stones spilled but they were each picked up immediately so that none would be left behind. We then began a difficult dissection in the cholecysto- hepatic triangle. There was a lot of chronic inflammation. There was really no edema or acute inflammation. The cystic artery and cystic duct were dissected out clearly. It was a very short cystic artery and the right hepatic artery was seen passing under the gallbladder into the right lobe of the liver. The gallbladder was dissected off the liver at its lower 3rd. Critical view was achieved. I then securely clipped and divided the cystic artery. I spent a little more time dissecting out clearly the cystic duct and getting a bit more length of cystic duct. The cystic duct was then securely clipped and divided as well. From there we dissected the gallbladder free of its attachments to the liver. The gallbladder and liver had very little tissue plane between them and another hole was made in the gallbladder. Some liver injury occurred but it was minimal and was controlled with cautery quickly. Eventually using some tedious careful dissection, I was able to completely free the gallbladder from the liver. It was placed immediately in an Endo-Catch bag. It was retrieved through the epigastric trocar site by removing Reynaldo cannula. Once the gallbladder was removed, I replaced the Reynaldo cannula and we reviewed the right upper quadrant. The gallbladder fossa was irrigated and suctioned. It was repeatedly cleared of blood and clot with repeated irrigation and suctioning. Some cautery was used but the liver surface was fairly raw. Surgiflo was made and placed in the gallbladder fossa for hemostasis. Gentle pressure with a Ray-Didi sponge was held on the gallbladder fossa. Removing the Ray-Didi, hemostasis looked to be very good. None of the other superficial injuries to the liver were bleeding either. I again irrigated and suctioned the right upper quadrant. I then brought a 19 Welsh George drain through the right lower most cannula. It was placed in the subhepatic position. It was sutured to the skin with 2 0 silk. We then checked the right upper quadrant 1 more time. All looked satisfactory. We evacuated CO2 and removed all the trocars. The Vicryl suture on the fascia were tied together at the epigastric trocar site. I also placed some additional 0 Vicryl suture to further close the fascia at the epigastric trocar site. Subcutaneous interrupted 3 0 Vicryl
[2019-12-03] MEDS: ONDANSETRON INJ 4 MG/2 ML VIAL IV PUSH (15:40)
--- NOTE | 2019-12-03 16:13 | PM.IMPN ---
Progress Note: A&P Assessment and Plan (1) Cholelithiasis with chronic cholecystitis: Qualifiers: Cholelithiasis location: gallbladder and bile duct Biliary obstruction: with biliary obstruction Qualified Code(s): K80.65 - Calculus of gallbladder and bile duct with chronic cholecystitis with obstruction Code(s): K80.10 - Calculus of gallbladder with chronic cholecystitis without obstruction Status: Acute Assessment and Plan: 12/03/19 16:13 Epigastric/atypical left sided chest pain. Chest tightness was continuous and felt related to the viral picture with the wheezing. Elevated Trop noted and ACS was considered but felt less likely. CT Abdomen on admission showing chronic mild fat stranding surrounding the gallbladder but no pancreatitis. Liver enzymes, lipase and Bili normally initially but then became elevated. RUQ US noted and concerning for choledochylithiasis. MRCP 11/30/19 showing cholelithiasis with mild gallbladder distention and mild pericholecystic fat stranding, both of which are chronic, likely reflecting chronic cholecystitis but no CBD stones or strictures. There is a mass effect on the mid CBD by a cystic mass at the head of the pancreas. Labs were better today with normal Lipase and Bili. Pt probably passed a gallstone. Patient was seen by surgery team today and plan is to take the patient for Laparoscopic cholecystectomy will follow-up (2) Paroxysmal atrial fibrillation with rapid ventricular response: Code(s): I48.0 - Paroxysmal atrial fibrillation Status: Acute Assessment and Plan: Patient HR up to 170 on 11/27 but converted to NSR with Lopressor IV once. Patient started on Toprol XL and rhytm overall remaining stable. Continue Metoprolol at current dose. Unable to advance due to the bradycardia at times. Continue tele. Plan for ASA only for stroke prevention. Appreciate Cardiology input. (3) Elevated LFTs: Code(s): R94.5 - Abnormal results of liver function studies Status: Acute Assessment and Plan: As above. (4) Acute biliary pancreatitis without infection or necrosis: Code(s): K85.10 - Biliary acute pancreatitis without necrosis or infection Status: Acute Assessment and Plan: As above. (5) Elevated troponin: Code(s): R79.89 - Other specified abnormal findings of blood chemistry Status: Acute Assessment and Plan: Troponin peaked at 0.073 and is trending downward. Etiology unclear but could be related to intermittent tachy-arrhythmias. Echo results showing EF 60% otherwise unremarkable; no regional wall motion abnormality. Heparin drip stopped. Appreciate Cardiology input. (6) Acute bronchitis: Qualifiers: Bronchitis organism: unspecified organism Qualified Code(s): J20.9 - Acute bronchitis, unspecified Code(s): J20.9 - Acute bronchitis, unspecified Status: Acute Assessment and Plan: Patient with probably viral syndrome/Acute Bronchitis with cough and worsening wheezing. Cough and wheezing much better with nebs and steroids. CT chest showing no infiltrative process to suggest PNA. Sputum Cx still pending. Pertussis negative. She has completed Azithromycin. Will continue Xopenex. Okay to stop Pulmozyme. Will stop steroids due to upcoming surgery and follow clinincally. Resume steroids if starts to wheeze again. (7) HTN (hypertension) with goal to be determined: Code(s): I10 - Essential (primary) hypertension Status: Chronic Assessment and Plan: BP reviewed on 12/02/19. BP has been well controlled except this morning with BP at 162/71. Not on anti-HTN meds at home. Currently on Metoprolol and received her dose at the time of that BP. Will see how her BP does today. Continue with PRN labetalol w/ parameters. (8) Parastomal hernia without obstruction or gangrene: Code(s): K43.5 - Parastomal hernia without o
[2019-12-04] VITALS (21 sets, daily range): BP systolic 120–137; BP diastolic 50–76; PULSE 51–76; RESP 16–20; TEMP 36.3–37.6; O2SAT 93–99
[2019-12-04] MEDS: LEVALBUTEROL NEB 1.25 MG/3 ML 0.63 MG INHALATION ×4 (01:52→20:19)
[2019-12-04 04:48] LABS: Hematocrit 33.3 % (37.0-47.0); Mean Corpuscular Hemoglobin 30.6 pg (26-34); Mean Corpuscular Volume 92.5 fl (80-100); Mean Platelet Volume 12.4 fl (7.4-10.4); Platelet Count Result 188 k/mm3 (150-375); Red Cell Distribution Width 13.9 % (11.5-14.5); White Blood Count 10.1 K/mm3 (4.5-10.0)
[2019-12-04 05:01] LABS: Alanine Aminotransferase 80 U/L (4-35); Albumin Level 2.8 g/dL (3.5-5.1); Alkaline Phosphatase 68 U/L (38-126); Aspartate Amino Transferase 55 U/L (14-36); Bilirubin,Total 0.7 mg/dL (0.2-1.3); Blood Urea Nitrogen 16 mg/dL (7-17); Calcium 7.9 mg/dL (8.4-10.2); Carbon Dioxide 29 mmol/L (22-30); Chloride 100 mmol/L (98-107); Estimated CRCL calculation 46 ml/min; Estimated Glomerular Filt Rate > 60; Glucose 82 mg/dL (65-105); Magnesium 2.3 mg/dL (1.6-2.3); Potassium 4.2 mmol/L (3.4-5.0); Sodium 134 mmol/L (137-145)
--- NOTE | 2019-12-04 07:43 | WPDANESPN ---
Anes - Prog Note Post-Op Date/Time: 12/04/19 07:43 Cardiovascular status: normal Respiratory status: normal Airway patency: baseline Mental status: baseline Post-Op hydration status: normal Vital Signs: Last Vital Signs Temp 36.6 C 12/04/19 04:39 Pulse 55 L 12/04/19 06:00 Resp 20 12/04/19 04:39 BP 135/51 L 12/04/19 04:39 Pulse Ox 97 12/04/19 04:39 I/O: Intake & Output 12/03/19 12/03/19 12/04/19 15:59 23:59 07:59 Intake Total 50 200 100 Output Total 50 280 895 Balance 0 -80 -795 Laboratory Tests 12/04/19 04:17 12/04/19 04:17 12/04/19 12/04/19 04:17 04:17 WBC 10.1 H RBC 3.60 L Hgb 11.0 L Hct 33.3 L MCV 92.5 MCH 30.6 MCHC 33.0 RDW 13.9 Plt Count 188 MPV 12.4 H Sodium 134 L Potassium 4.2 Chloride 100 Carbon Dioxide 29 BUN 16 Creatinine 0.80 Estim Creat Clear Calc 46 Estimated GFR > 60 Glucose 82 Calcium 7.9 L Magnesium 2.3 Total Bilirubin 0.7 AST 55 H ALT 80 H Alkaline Phosphatase 68 Total Protein 6.0 L Albumin 2.8 L Microbiology 11/30/19 16:18 Sputum Sputum Culture - Final Post-procedural complaints: none Patient Feedback: Patient satisfied with anesthetic care.
[2019-12-04] MEDS: ASPIRIN 81 MG ENTERIC TABLET 324 MG PO (08:45)
[2019-12-04] MEDS: VITAMIN B COMPLEX CAPSULE 1 CAP PO (08:45)
[2019-12-04] MEDS: METOPROLOL SUCCINATE EXT REL 25 MG TABCR PO (08:45)
[2019-12-04] MEDS: PANTOPRAZOLE 40 MG TABLET PO (08:45)
[2019-12-04] MEDS: ENOXAPARIN 40 MG/0.4 ML SYRINGE SUB-Q (08:45)
[2019-12-04] MEDS: polyethylene glycoL 3350 17 GM POWD.PACK PO (08:46)
[2019-12-04] MEDS: PSYLLIUM POWDER PACKET 1 PACKET PO (08:46)
[2019-12-04] MEDS: TOLNAFTATE 1% POWDER 45 GM BTL 1 APPLIC TOPICAL ×2 (08:47→20:00)
--- NOTE | 2019-12-04 08:56 | WPDGIPROGNO ---
Progress Note: A&P Additional Plan Patient alert and comfortable this morning. Notes some incisional tenderness after cholecystectomy. Physical exam reveals vital signs stable. Abdomen is soft. Incisional tenderness noted. Left-sided colostomy with peristomal hernia noted. Impression 1. Gallstones. Status post cholecystectomy. Surgical findings noted. Plan as per surgery. Hopefully home soon. 2. Colon cancer with lung metastases. Currently followed by Oncology elsewhere. 3. Colostomy with peristomal hernia. Conservative therapy advised. Plan as per surgery. Hopefully home soon after recent cholecystectomy. Subjective Date/time seen: 12/04/19 08:56 Objective Data Vital Signs Vital Signs: Vital Signs - 24 hr 12/03/19 09:09 12/03/19 09:18 12/03/19 09:42 Temperature Pulse Rate 56 L 59 L 64 Respiratory Rate 20 20 Blood Pressure Pulse Oximetry 12/03/19 10:00 12/03/19 11:39 12/03/19 12:00 Temperature 36.6 C Pulse Rate 54 L 61 55 L Respiratory Rate 18 Blood Pressure 147/52 H Pulse Oximetry 98 12/03/19 12:46 12/03/19 15:25 12/03/19 15:40 Temperature 37.2 C 36.6 C Pulse Rate 56 L 66 52 L Respiratory Rate 20 22 H 20 Blood Pressure 146/54 H 154/53 H 137/50 L Pulse Oximetry 98 98 94 12/03/19 15:55 12/03/19 16:10 12/03/19 16:25 Temperature Pulse Rate 51 L 54 L 54 L Respiratory Rate 22 H 17 18 Blood Pressure 134/50 L 122/49 L 122/43 L Pulse Oximetry 94 94 95 12/03/19 16:40 12/03/19 17:10 12/03/19 17:30 Temperature 36.6 C 36.7 C Pulse Rate 49 L 55 L 56 L Respiratory Rate 20 20 20 Blood Pressure 121/49 L 139/52 L 124/44 L Pulse Oximetry 96 93 92 12/03/19 17:57 12/03/19 18:00 12/03/19 18:51 Temperature 37.1 C 36.7 C Pulse Rate 57 L 58 L 62 Respiratory Rate 20 20 Blood Pressure 130/50 L 129/58 L Pulse Oximetry 93 97 12/03/19 19:29 12/03/19 20:00 12/03/19 20:15 Temperature 36.7 C Pulse Rate 61 60 Respiratory Rate 18 Blood Pressure 130/60 Pulse Oximetry 98 95 12/03/19 20:16 12/03/19 20:26 12/03/19 22:00 Temperature Pulse Rate 63 60 56 L Respiratory Rate 18 18 Blood Pressure Pulse Oximetry 12/04/19 00:00 12/04/19 01:53 12/04/19 02:00 Temperature 36.7 C Pulse Rate 52 L 52 L 61 Respiratory Rate 18 18 Blood Pressure 124/68 Pulse Oximetry 99 12/04/19 02:03 12/04/19 04:00 12/04/19 04:39 Temperature 36.6 C Pulse Rate 51 L 57 L 66 Respiratory Rate 18 20 Blood Pressure 135/51 L Pulse Oximetry 97 12/04/19 06:00 12/04/19 08:45 Temperature Pulse Rate 55 L 76 Respiratory Rate Blood Pressure Pulse Oximetry Intake/Output Intake/Output: Intake & Output 12/01/19 12/02/19 12/03/19 12/04/19 23:59 23:59 23:59 23:59 Intake Total 3415 1270 450 100 Output Total 1100 1800 1030 895 Balance 2315 -530 -580 -795 Meds/Results Medications: Active Medications Generic Name Dose Route Start Last Admin Trade Name Freq PRN Reason Stop Dose Admin Hydrocodone Bitart/Acetaminophen 1 tab 12/03/19 16:55 12/04/19 02:22 [place] 5-325 Mg PO 1 tab Q4H PRN Administration Pain Rated 4-6 Hydrocodone Bitart/Acetaminophen 1 tab 12/03/19 16:55 [place] 7.5-325 Mg PO Q4H PRN Pain Rated 7-10 Aspirin 324 mg 11/30/19 09:00 12/04/19 08:45 Aspirin Ec PO 324 mg DAILY ANDER Administration Calcium Carbonate 200 mg 11/27/19 09:36 11/28/19 15:01 Tums PO 200 mg Q6H PRN Administration Indigestion Diphenhydramine HCl 25 mg 12/03/19 16:55 Benadryl Inj IV PUSH Q6H PRN Itching Enoxaparin Sodium 40 mg 11/28/19 11:40 12/04/19 08:45 Lovenox SUB-Q 40 mg DAILY ANDER Administration Ergocalciferol 50,000 unit 12/02/19 09:00 12/02/19 07:57 Drisdol PO 50,000 unit Mo@0900 ANDER Administration Ibuprofen 400 mg 12/03/19 16:55 Motrin PO Q6H PRN Pain Rated 1-3 Levalbuterol HCl 0.63 mg 11/27/19 15:10 12/04/19 01:52 Xopene
--- NOTE | 2019-12-04 10:15 | PM.PNGS ---
Progress Note: A&P Assessment and Plan (1) Acute biliary pancreatitis without infection or necrosis: Code(s): K85.10 - Biliary acute pancreatitis without necrosis or infection Status: Acute Assessment and Plan: Post op day 1 and patient is doing well. Advanced to a low fat diet. Continue LUDA drain to bulb suction. Encouraged the patient to increase activity. If the patient continues to improve, she may be able to be discharged by the weekend if her cardiac status is stable and okay with all other services. (2) Cholelithiasis with chronic cholecystitis: Qualifiers: Biliary obstruction: with biliary obstruction Cholelithiasis location: gallbladder and bile duct Qualified Code(s): K80.65 - Calculus of gallbladder and bile duct with chronic cholecystitis with obstruction Code(s): K80.10 - Calculus of gallbladder with chronic cholecystitis without obstruction Status: Acute (3) Parastomal hernia without obstruction or gangrene: Code(s): K43.5 - Parastomal hernia without obstruction or gangrene Status: Acute (4) History of rectal cancer: Code(s): Z85.048 - Personal history of other malignant neoplasm of rectum, rectosigmoid junction, and anus Status: Acute (5) Secondary malignancy of right lung: Code(s): C78.01 - Secondary malignant neoplasm of right lung Status: Acute Additional Plan Discussed the patient's case and plan of care with Dr. Diaz. Subjective Subjective Date/Time Seen: 12/04/19 09:30 Post Op day: 1 (laparoscopic cholecystectomy) Patient reports: no new complaints, no flatus and no bowel movement Interval history: Patient reports feeling well today with some pain near the LUDA drain. Otherwise, she is sitting up eating breakfast this morning. No acute issues overnight. Denies shortness of breath today. Denies nausea, vomiting, or bloating. Tolerating full liquid diet for breakfast. No other complaints at this time. Review of Systems Review of Systems: All systems reviewed & are unremarkable except as noted in HPI and below Cardiovascular: Cardiovascular: Denies chest pain and Denies chest pain with activity Respiratory: Respiratory: Denies chest congestion and Denies dyspnea Gastrointestinal: Gastrointestinal: Reports as per HPI, Denies nausea and Denies vomiting Exam Const: General: comfortable, no acute distress, alert and awake Orientation/consciousness: patient oriented x3 Resp: Effort & Inspection: normal respiratory effort Auscultation: clear to auscultation bilaterally Cardio: Rate: regular rate Rhythm: regular rhythm GI: Inspection: non-distended, incision (Clean/dry/intact. ), obesity, visible herniation (large parastomal hernia, non-tender and soft) and other (Right-sided LUDA drain with serosanguineous drainage.) GI Palp: Yes Soft to palpation, Yes Tenderness to palpation present (GI) (incisional) and No Guarding due to palpation present (GI) Auscultation: Hypoactive bowel sounds present Neuro: General: no focal motor deficits Extrem: General: no calf tenderness and no edema Psych: Mental Status: mental status grossly normal Affect: normal affect Insight: Good insight present (Psych) Judgement: Good judgement present (Psych) Objective Data Vital Signs Vital Signs: Vital Signs - 24 hr 12/03/19 11:39 12/03/19 12:00 12/03/19 12:46 Temperature 36.6 C 37.2 C Pulse Rate 61 55 L 56 L Respiratory Rate 18 20 Blood Pressure 147/52 H 146/54 H Pulse Oximetry 98 98 12/03/19 15:25 12/03/19 15:40 12/03/19 15:55 Temperature 36.6 C Pulse Rate 66 52 L 51 L Respiratory Rate 22 H 20 22 H Blood Pressure 154/53 H 137/50 L 134/50 L Pulse Oximetry 98 94 94 12/03/19 16:10 12/03/19 16:25 12/03/19 16:40 Temperature Pulse Rate 54 L 54 L 49 L Respiratory Rate 17 18 20 Blood Pressure 122/49 L 122/43 L 121/49 L Pulse Oximetry 94 95 96 12/03/19 17:10 12/03/19 17:30 12/03/19 17:57 Temperature 36.6 C 36.7 C 37.1 C
--- NOTE | 2019-12-04 14:03 | PM.PNCARD ---
Progress Note: A&P Assessment and Plan (1) Cholelithiasis with chronic cholecystitis: Qualifiers: Biliary obstruction: with biliary obstruction Cholelithiasis location: gallbladder and bile duct Qualified Code(s): K80.65 - Calculus of gallbladder and bile duct with chronic cholecystitis with obstruction Code(s): K80.10 - Calculus of gallbladder with chronic cholecystitis without obstruction Status: Acute Assessment and Plan: Pt underwent surgery and tolerated it fine. surgery fu (2) Paroxysmal atrial fibrillation with rapid ventricular response: Code(s): I48.0 - Paroxysmal atrial fibrillation Status: Acute Assessment and Plan: Pt had episode of AFIB with RVR during this admission. She converted to NSR and remains in NSR. Her HR remains in 60's, only when sleeps is in 50's. Cont Metoprolol. Pt is not a good candidate for systemic anticoagulation. Cont ASA if OK with surgery. (3) HTN (hypertension) with goal to be determined: Code(s): I10 - Essential (primary) hypertension Status: Chronic Assessment and Plan: BP well controlled Cont current meds (4) Elevated troponin: Code(s): R79.89 - Other specified abnormal findings of blood chemistry Status: Acute Assessment and Plan: Pt was found initially to have borderline troponin in the setting of pancreatitis and cholelithiasis in pt with metastatic ca. No acute EKG changes. ECHO showed normal LV systolic function. Cont medical management and risk factor modification. (5) Epigastric pain: Code(s): R10.13 - Epigastric pain Status: Acute Assessment and Plan: resolved pt underwent laparoscopic cholecystectomy yesterday and tolerated it fine according to surgery dc soon Subjective Date/time seen: 12/04/19 14:03 pt feels fine today. Underwent surgery yesterday and tolerated it fine. Currently on telemetry floor. Remains in NSR. Pt was seen and examined, chart was reviewed, case d/w pt's nurse. Objective Data Vital Signs Vital Signs: Vital Signs - 24 hr 12/03/19 15:25 12/03/19 15:40 12/03/19 15:55 Temperature 36.6 C Pulse Rate 66 52 L 51 L Respiratory Rate 22 H 20 22 H Blood Pressure 154/53 H 137/50 L 134/50 L Pulse Oximetry 98 94 94 12/03/19 16:10 12/03/19 16:25 12/03/19 16:40 Temperature Pulse Rate 54 L 54 L 49 L Respiratory Rate 17 18 20 Blood Pressure 122/49 L 122/43 L 121/49 L Pulse Oximetry 94 95 96 12/03/19 17:10 12/03/19 17:30 12/03/19 17:57 Temperature 36.6 C 36.7 C 37.1 C Pulse Rate 55 L 56 L 57 L Respiratory Rate 20 20 20 Blood Pressure 139/52 L 124/44 L 130/50 L Pulse Oximetry 93 92 93 12/03/19 18:00 12/03/19 18:51 12/03/19 19:29 Temperature 36.7 C 36.7 C Pulse Rate 58 L 62 61 Respiratory Rate 20 18 Blood Pressure 129/58 L 130/60 Pulse Oximetry 97 98 12/03/19 20:00 12/03/19 20:15 12/03/19 20:16 Temperature Pulse Rate 60 63 Respiratory Rate 18 Blood Pressure Pulse Oximetry 95 12/03/19 20:26 12/03/19 22:00 12/04/19 00:00 Temperature 36.7 C Pulse Rate 60 56 L 52 L Respiratory Rate 18 18 Blood Pressure 124/68 Pulse Oximetry 99 12/04/19 01:53 12/04/19 02:00 12/04/19 02:03 Temperature Pulse Rate 52 L 61 51 L Respiratory Rate 18 18 Blood Pressure Pulse Oximetry 12/04/19 04:00 12/04/19 04:39 12/04/19 06:00 Temperature 36.6 C Pulse Rate 57 L 66 55 L Respiratory Rate 20 Blood Pressure 135/51 L Pulse Oximetry 97 12/04/19 08:00 12/04/19 08:45 12/04/19 09:00 Temperature 36.5 C Pulse Rate 59 L 76 64 Respiratory Rate 20 18 Blood Pressure 131/71 Pulse Oximetry 95 97 12/04/19 09:08 12/04/19 12:00 Temperature 36.4 C Pulse Rate 62 64 Respiratory Rate 18 18 Blood Pressure 137/60 Pulse Oximetry 96 Intake/Output Intake/Output: Intake & Output 12/01/19 12/02/19 12/03/19 12/04/19 23:59 23:59 23:59 23:59 Intake Total 3415 1270 450 100 Outp
--- NOTE | 2019-12-04 14:12 | PM.IMPN ---
Progress Note: A&P Assessment and Plan (1) Cholelithiasis with chronic cholecystitis: Qualifiers: Cholelithiasis location: gallbladder and bile duct Biliary obstruction: with biliary obstruction Qualified Code(s): K80.65 - Calculus of gallbladder and bile duct with chronic cholecystitis with obstruction Code(s): K80.10 - Calculus of gallbladder with chronic cholecystitis without obstruction Status: Acute Assessment and Plan: 12/04/19 14:12 Epigastric/atypical left sided chest pain. Chest tightness was continuous and felt related to the viral picture with the wheezing. Elevated Trop noted and ACS was considered but felt less likely. CT Abdomen on admission showing chronic mild fat stranding surrounding the gallbladder but no pancreatitis. Liver enzymes, lipase and Bili normally initially but then became elevated. RUQ US noted and concerning for choledochylithiasis. MRCP 11/30/19 showing cholelithiasis with mild gallbladder distention and mild pericholecystic fat stranding, both of which are chronic, likely reflecting chronic cholecystitis but no CBD stones or strictures. There is a mass effect on the mid CBD by a cystic mass at the head of the pancreas. Labs were better today with normal Lipase and Bili. Pt probably passed a gallstone. Patient was seen by surgery team on 12/02 and patient had cholecystectomy. Today POD #1 patient is doing better seen by surgery team advanced her diet, patient is having output in colostomy, early in admission patient had atrial fibrillation with RVR patient is seen by family member caretaker on beta-monika now in sinus rhythm and rate is controlled, patient denies any abdominal pain nausea or vomiting fever or chills, (2) Paroxysmal atrial fibrillation with rapid ventricular response: Code(s): I48.0 - Paroxysmal atrial fibrillation Status: Acute Assessment and Plan: Patient HR up to 170 on 11/27 but converted to NSR with Lopressor IV once. Patient started on Toprol XL and rhytm overall remaining stable. Continue Metoprolol at current dose. Unable to advance due to the bradycardia at times. Continue tele. Plan for ASA only for stroke prevention. Appreciate Cardiology input. (3) Elevated LFTs: Code(s): R94.5 - Abnormal results of liver function studies Status: Acute Assessment and Plan: As above. (4) Acute biliary pancreatitis without infection or necrosis: Code(s): K85.10 - Biliary acute pancreatitis without necrosis or infection Status: Acute Assessment and Plan: As above. (5) Elevated troponin: Code(s): R79.89 - Other specified abnormal findings of blood chemistry Status: Acute Assessment and Plan: Troponin peaked at 0.073 and is trending downward. Etiology unclear but could be related to intermittent tachy-arrhythmias. Echo results showing EF 60% otherwise unremarkable; no regional wall motion abnormality. Heparin drip stopped. Appreciate Cardiology input. (6) Acute bronchitis: Qualifiers: Bronchitis organism: unspecified organism Qualified Code(s): J20.9 - Acute bronchitis, unspecified Code(s): J20.9 - Acute bronchitis, unspecified Status: Acute Assessment and Plan: Patient with probably viral syndrome/Acute Bronchitis with cough and worsening wheezing. Cough and wheezing much better with nebs and steroids. CT chest showing no infiltrative process to suggest PNA. Sputum Cx still pending. Pertussis negative. She has completed Azithromycin. Will continue Xopenex. Okay to stop Pulmozyme. Will stop steroids due to upcoming surgery and follow clinincally. Resume steroids if starts to wheeze again. (7) HTN (hypertension) with goal to be determined: Code(s): I10 - Essential (primary) hypertension Status: Chronic Assessment and Plan: BP reviewed on 12/02/19. BP has been well controlled except this morning with BP at 162/71.
--- NOTE | 2019-12-04 18:40 | PC.NURSE ---
Moved patient to room 341 gave report to Patricia
--- NOTE | 2019-12-04 18:46 | PC.NURSE ---
This patient, Xiomara Ybarra, was received from IMU 201 on 12/04/19 at 1846. Personal belongings list checked and signed. Patient/family oriented to unit policies and routines
[2019-12-05] VITALS (15 sets, daily range): BP systolic 130–147; BP diastolic 55–80; PULSE 60–74; RESP 16–22; TEMP 36.3–36.7; O2SAT 93–98
[2019-12-05] MEDS: LEVALBUTEROL NEB 1.25 MG/3 ML 0.63 MG INHALATION ×4 (01:47→20:01)
[2019-12-05] MEDS: ONDANSETRON INJ 4 MG/2 ML VIAL IV PUSH ×2 (05:46→22:19)
[2019-12-05 05:58] LABS: Hematocrit 36.8 % (37.0-47.0); Hemoglobin 12.2 g/dL (12.0-15.0); Mean Corpuscular HGB Conc 33.2 g/dl (32-36); Mean Corpuscular Hemoglobin 30.4 pg (26-34); Mean Corpuscular Volume 91.8 fl (80-100); Mean Platelet Volume 12.3 fl (7.4-10.4); Platelet Count Result 206 k/mm3 (150-375); Red Blood Count 4.01 M/mm3 (4.2-5.4); Red Cell Distribution Width 14.1 % (11.5-14.5); White Blood Count 9.9 K/mm3 (4.5-10.0)
[2019-12-05 06:07] LABS: Blood Urea Nitrogen 14 mg/dL (7-17); Calcium 8.2 mg/dL (8.4-10.2); Carbon Dioxide 27 mmol/L (22-30); Chloride 100 mmol/L (98-107); Estimated CRCL calculation 45 ml/min; Estimated Glomerular Filt Rate > 60; Glucose 108 mg/dL (65-105); Potassium 3.6 mmol/L (3.4-5.0); Sodium 134 mmol/L (137-145)
--- NOTE | 2019-12-05 08:15 | WPDGIPROGNO ---
Progress Note: A&P Additional Plan Patient alert and comfortable this morning. Complains of incisional pain at site of recent cholecystectomy. Physical exam reveals her to be alert. Abdomen is soft. Minimal tenderness at the incision site. Left-sided colostomy with peristomal hernia noted. Impression 1. Cholelithiasis. Status post cholecystectomy by Dr. Diaz. Hopefully discharge soon per his direction. 2. Colon cancer with lung metastases. No active acute issues. Will be followed by Oncology after discharge. 3. 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 No media plans for correction. Plan is for disposition per surgical service. Hopefully home soon status post cholecystectomy. Subjective Date/time seen: 12/05/19 08:15 Objective Data Vital Signs Vital Signs: Vital Signs - 24 hr 12/04/19 08:45 12/04/19 09:00 12/04/19 09:08 Temperature Pulse Rate 76 64 62 Respiratory Rate 18 18 Blood Pressure Pulse Oximetry 97 12/04/19 12:00 12/04/19 14:00 12/04/19 14:35 Temperature 36.4 C Pulse Rate 65 59 L 61 Respiratory Rate 18 18 Blood Pressure 137/60 Pulse Oximetry 96 12/04/19 14:45 12/04/19 16:00 12/04/19 18:59 Temperature 36.6 C 36.3 C L Pulse Rate 68 59 L 70 Respiratory Rate 18 20 18 Blood Pressure 120/50 L 132/56 L Pulse Oximetry 93 95 12/04/19 19:51 12/04/19 20:20 12/04/19 20:23 Temperature 37.6 C Pulse Rate 57 L 63 Respiratory Rate 16 18 Blood Pressure 125/76 Pulse Oximetry 93 95 12/04/19 20:26 12/05/19 00:03 12/05/19 01:48 Temperature 36.6 C Pulse Rate 64 67 60 Respiratory Rate 18 16 18 Blood Pressure 130/55 L Pulse Oximetry 93 12/05/19 01:54 12/05/19 04:02 12/05/19 08:00 Temperature 36.3 C L 36.4 C L Pulse Rate 62 67 68 Respiratory Rate 18 18 16 Blood Pressure 141/57 H 147/61 H Pulse Oximetry 93 96 Intake/Output Intake/Output: Intake & Output 12/02/19 12/03/19 12/04/19 12/05/19 23:59 23:59 23:59 23:59 Intake Total 1270 450 550 250 Output Total 1800 1030 1620 410 Balance -530 -580 -1070 -160 Meds/Results Medications: Active Medications Generic Name Dose Route Start Last Admin Trade Name Freq PRN Reason Stop Dose Admin Hydrocodone Bitart/Acetaminophen 1 tab 12/03/19 16:55 12/05/19 05:47 [place] 5-325 Mg PO 1 tab Q4H PRN Administration Pain Rated 4-6 Hydrocodone Bitart/Acetaminophen 1 tab 12/03/19 16:55 [place] 7.5-325 Mg PO Q4H PRN Pain Rated 7-10 Aspirin 324 mg 11/30/19 09:00 12/04/19 08:45 Aspirin Ec PO 324 mg DAILY [facility] Administration Calcium Carbonate 200 mg 11/27/19 09:36 11/28/19 15:01 Tums PO 200 mg Q6H PRN Administration Indigestion Diphenhydramine HCl 25 mg 12/03/19 16:55 Benadryl Inj IV PUSH Q6H PRN Itching Enoxaparin Sodium 40 mg 11/28/19 11:40 12/04/19 08:45 Lovenox SUB-Q 40 mg DAILY [facility] Administration Ergocalciferol 50,000 unit 12/02/19 09:00 12/02/19 07:57 Drisdol PO 50,000 unit Mo@0900 ANDER Administration Ibuprofen 400 mg 12/03/19 16:55 Motrin PO Q6H PRN Pain Rated 1-3 Levalbuterol HCl 0.63 mg 11/27/19 15:10 12/05/19 01:47 Xopenex 1.25 Mg/3 Ml INHALATION 0.63 mg Q6HRT ANDER Administration Metoprolol Succinate 25 mg 11/30/19 09:00 12/04/19 08:45 Toprol Xl PO 25 mg QAM ANDER Administration Morphine Sulfate 1 mg 12/03/19 16:55 Morphine Sulfate Inj IV PUSH Q2H PRN Pain Rated 4-6 Morphine Sulfate 2 mg 12/03/19 16:55 Morphine Sulfate Inj IV PUSH Q2H PRN Pain Rated 7-10 Naloxone HCl 0.1 mg 12/03/19 16:55 Narcan IV PUSH Q2M PRN Opiate Reversal Nitroglycerin 0.4 mg 11/25/19 21:06 Nitrostat Subl 0.4 Mg (1/150) SUBLINGUAL Q5MIN PRN Chest Pain Ondansetron HCl 4 mg 12/03/19 16:55 12/05/19 05:46 Zofran Inj IV PUSH 4 mg Q4H PRN Administration Nausea And Vomiting Pantoprazole Sod
[2019-12-05] MEDS: TOLNAFTATE 1% POWDER 45 GM BTL 1 APPLIC TOPICAL ×2 (08:22→22:20)
[2019-12-05] MEDS: ENOXAPARIN 40 MG/0.4 ML SYRINGE SUB-Q (08:22)
[2019-12-05] MEDS: ASPIRIN 81 MG ENTERIC TABLET 324 MG PO (08:23)
[2019-12-05] MEDS: VITAMIN B COMPLEX CAPSULE 1 CAP PO (08:24)
[2019-12-05] MEDS: METOPROLOL SUCCINATE EXT REL 25 MG TABCR PO (08:24)
[2019-12-05] MEDS: PANTOPRAZOLE 40 MG TABLET PO (08:25)
[2019-12-05] MEDS: PSYLLIUM POWDER PACKET 1 PACKET PO (08:25)
[2019-12-05] MEDS: polyethylene glycoL 3350 17 GM POWD.PACK PO (08:32)
--- NOTE | 2019-12-05 13:08 | PM.PNGS ---
Progress Note: A&P Assessment and Plan (1) Cholelithiasis with chronic cholecystitis: Qualifiers: Cholelithiasis location: gallbladder and bile duct Biliary obstruction: with biliary obstruction Qualified Code(s): K80.65 - Calculus of gallbladder and bile duct with chronic cholecystitis with obstruction Code(s): K80.10 - Calculus of gallbladder with chronic cholecystitis without obstruction Status: Chronic Assessment and Plan: doing well status post difficult laparoscopic cholecystectomy day before yesterday. Her LUDA drain fluid looks good with no evidence of bile. She is still having some nausea this morning and only fair colostomy output. Would like to watch her again today with increased activity of ambulation. Her eating was only fair yesterday hopefully this will improve as well. Possibly home tomorrow. (2) Acute biliary pancreatitis without infection or necrosis: Code(s): K85.10 - Biliary acute pancreatitis without necrosis or infection Status: Resolved Assessment and Plan: No signs of recurrence. Doing well. (3) Parastomal hernia without obstruction or gangrene: Code(s): K43.5 - Parastomal hernia without obstruction or gangrene Status: Acute Assessment and Plan: Unchanged from before. Probably the cause of her constipation. No plans for repair at this time. (4) Secondary malignancy of right lung: Code(s): C78.01 - Secondary malignant neoplasm of right lung Status: Acute (5) History of rectal cancer: Code(s): Z85.048 - Personal history of other malignant neoplasm of rectum, rectosigmoid junction, and anus Status: Acute Subjective Subjective Date/Time Seen: 12/05/19 13:08 Patient reports: feels better, pain is less, no bowel movement ( not having is good of colostomy output as was right before surgery.) and nausea ( Got some Zofran early this morning) Exam GI: Inspection: incision ( trocar sites all healing well LUDA drain shows serous fluid) and visible herniation ( Protuberant parastomal hernia) GI Palp: Yes Soft to palpation and Yes Tenderness to palpation present (GI) ( mild incisional tendernes) Auscultation: Hypoactive bowel sounds present Objective Data Vital Signs Vital Signs: Vital Signs - 24 hr 12/04/19 14:00 12/04/19 14:35 12/04/19 14:45 Temperature Pulse Rate 59 L 61 68 Respiratory Rate 18 18 Blood Pressure Pulse Oximetry 12/04/19 16:00 12/04/19 18:59 12/04/19 19:51 Temperature 36.6 C 36.3 C L 37.6 C Pulse Rate 59 L 70 57 L Respiratory Rate 20 18 16 Blood Pressure 120/50 L 132/56 L 125/76 Pulse Oximetry 93 95 93 12/04/19 20:20 12/04/19 20:23 12/04/19 20:26 Temperature Pulse Rate 63 64 Respiratory Rate 18 18 Blood Pressure Pulse Oximetry 95 12/05/19 00:03 12/05/19 01:48 12/05/19 01:54 Temperature 36.6 C Pulse Rate 67 60 62 Respiratory Rate 16 18 18 Blood Pressure 130/55 L Pulse Oximetry 93 12/05/19 04:02 12/05/19 08:00 12/05/19 08:24 Temperature 36.3 C L 36.4 C L Pulse Rate 67 68 68 Respiratory Rate 18 16 Blood Pressure 141/57 H 147/61 H Pulse Oximetry 93 96 12/05/19 08:32 12/05/19 08:57 12/05/19 09:03 Temperature Pulse Rate 65 60 Respiratory Rate 20 20 20 Blood Pressure Pulse Oximetry 98 98 Intake/Output Intake/Output: Intake & Output 12/02/19 12/03/19 12/04/19 12/05/19 23:59 23:59 23:59 23:59 Intake Total 1270 450 550 450 Output Total 1800 1030 1620 665 Balance -530 -580 -1070 -215 Meds/Results Medications: Active Medications Generic Name Dose Route Start Last Admin Trade Name Freq PRN Reason Stop Dose Admin Hydrocodone Bitart/Acetaminophen 1 tab 12/03/19 16:55 12/05/19 05:47 [place] 5-325 Mg PO 1 tab Q4H PRN Administration Pain Rated 4-6 Hydrocodone Bitart/Acetaminophen 1 tab 12/03/19 16:55 [place] 7.5-325 Mg PO Q4H PRN Pain Rated 7-10 Aspirin 324 mg 11/30/19 09:00
--- NOTE | 2019-12-05 13:24 | PM.PNCARD ---
Progress Note: A&P Assessment and Plan (1) Paroxysmal atrial fibrillation with rapid ventricular response: Code(s): I48.0 - Paroxysmal atrial fibrillation Status: Acute Assessment and Plan: Discussed patient's case with nurse and reviewed chart. Patient doing well with NSR, good HR 65-68 bpm, and BP 147/61. Patient being kept at present for nausea and to confirm good bowel output. For paroxysmal atrial fibrillation with RVR, now resolved, continue ASA and metoprolol succinate. She needs 1 week office follow-up for video/phone visit given COVID-19 risk or in person visit in 1 week. Subjective Date/time seen: 12/05/19 13:24 Discussed patient's case with nurse and reviewed chart. Patient doing well with NSR, good HR 65-68 bpm, and BP 147/61. Patient being kept at present for nausea and to confirm good bowel output. For paroxysmal atrial fibrillation with RVR, now resolved, continue ASA and metoprolol succinate. She needs 1 week office follow-up for video/phone visit given COVID-19 risk or in person visit in 1 week. Objective Data Vital Signs Vital Signs: Vital Signs - 24 hr 12/04/19 14:00 12/04/19 14:35 12/04/19 14:45 Temperature Pulse Rate 59 L 61 68 Respiratory Rate 18 18 Blood Pressure Pulse Oximetry 12/04/19 16:00 12/04/19 18:59 12/04/19 19:51 Temperature 36.6 C 36.3 C L 37.6 C Pulse Rate 59 L 70 57 L Respiratory Rate 20 18 16 Blood Pressure 120/50 L 132/56 L 125/76 Pulse Oximetry 93 95 93 12/04/19 20:20 12/04/19 20:23 12/04/19 20:26 Temperature Pulse Rate 63 64 Respiratory Rate 18 18 Blood Pressure Pulse Oximetry 95 12/05/19 00:03 12/05/19 01:48 12/05/19 01:54 Temperature 36.6 C Pulse Rate 67 60 62 Respiratory Rate 16 18 18 Blood Pressure 130/55 L Pulse Oximetry 93 12/05/19 04:02 12/05/19 08:00 12/05/19 08:24 Temperature 36.3 C L 36.4 C L Pulse Rate 67 68 68 Respiratory Rate 18 16 Blood Pressure 141/57 H 147/61 H Pulse Oximetry 93 96 12/05/19 08:32 12/05/19 08:57 12/05/19 09:03 Temperature Pulse Rate 65 60 Respiratory Rate 20 20 20 Blood Pressure Pulse Oximetry 98 98 Intake/Output Intake/Output: Intake & Output 12/02/19 12/03/19 12/04/19 12/05/19 23:59 23:59 23:59 23:59 Intake Total 1270 450 550 450 Output Total 1800 1030 1620 665 Balance -530 -580 -1070 -215 Meds/Results Medications: Active Medications Generic Name Dose Route Start Last Admin Trade Name Freq PRN Reason Stop Dose Admin Hydrocodone Bitart/Acetaminophen 1 tab 12/03/19 16:55 12/05/19 05:47 [place] 5-325 Mg PO 1 tab Q4H PRN Administration Pain Rated 4-6 Hydrocodone Bitart/Acetaminophen 1 tab 12/03/19 16:55 [place] 7.5-325 Mg PO Q4H PRN Pain Rated 7-10 Aspirin 324 mg 11/30/19 09:00 12/05/19 08:23 Aspirin Ec PO 324 mg DAILY [facility] Administration Calcium Carbonate 200 mg 11/27/19 09:36 11/28/19 15:01 Tums PO 200 mg Q6H PRN Administration Indigestion Diphenhydramine HCl 25 mg 12/03/19 16:55 Benadryl Inj IV PUSH Q6H PRN Itching Enoxaparin Sodium 40 mg 11/28/19 11:40 12/05/19 08:22 Lovenox SUB-Q 40 mg DAILY [facility] Administration Ergocalciferol 50,000 unit 12/02/19 09:00 12/02/19 07:57 Drisdol PO 50,000 unit Mo@0900 [facility] Administration Ibuprofen 400 mg 12/03/19 16:55 Motrin PO Q6H PRN Pain Rated 1-3 Levalbuterol HCl 0.63 mg 11/27/19 15:10 12/05/19 08:55 Xopenex 1.25 Mg/3 Ml INHALATION 0.63 mg Q6HRT [facility] Administration Metoprolol Succinate 25 mg 11/30/19 09:00 12/05/19 08:24 Toprol Xl PO 25 mg QAM [facility] Administration Morphine Sulfate 1 mg 12/03/19 16:55 Morphine Sulfate Inj IV PUSH Q2H PRN Pain Rated 4-6 Morphine Sulfate 2 mg 12/03/19 16:55 Morphine Sulfate Inj IV PUSH Q2H PRN Pain Rated 7-10 Naloxone HCl 0.1 mg 12/03/19 16:55 Narcan IV PUSH Q2M PRN
--- NOTE | 2019-12-05 13:41 | PM.IMPN ---
Progress Note: A&P Assessment and Plan (1) Cholelithiasis with chronic cholecystitis: Qualifiers: Cholelithiasis location: gallbladder and bile duct Biliary obstruction: with biliary obstruction Qualified Code(s): K80.65 - Calculus of gallbladder and bile duct with chronic cholecystitis with obstruction Code(s): K80.10 - Calculus of gallbladder with chronic cholecystitis without obstruction Status: Chronic Assessment and Plan: 12/05/19 13:41 Epigastric/atypical left sided chest pain. Chest tightness was continuous and felt related to the viral picture with the wheezing. Elevated Trop noted and ACS was considered but felt less likely. CT Abdomen on admission showing chronic mild fat stranding surrounding the gallbladder but no pancreatitis. Liver enzymes, lipase and Bili normally initially but then became elevated. RUQ US noted and concerning for choledochylithiasis. MRCP 11/30/19 showing cholelithiasis with mild gallbladder distention and mild pericholecystic fat stranding, both of which are chronic, likely reflecting chronic cholecystitis but no CBD stones or strictures. There is a mass effect on the mid CBD by a cystic mass at the head of the pancreas. Labs were better today with normal Lipase and Bili. Pt probably passed a gallstone. Patient was seen by surgery team on 12/02 and patient had cholecystectomy. on 12/03 POD #1 patient was doing better seen by surgery team advanced her diet, patient is having output in colostom.today POD #2 patient complains of nausea and bloating colostomy output is also poor, patient had a pain in surgical and took some pain medication most likely is constipated will continue to monitor seen by surgery if remains clinically stable may discharge home tomorrow, early in admission patient had atrial fibrillation with RVR patient is seen by medical lab technologist on beta-monika now in sinus rhythm and rate is controlled, patient denies any chest pain shortness of breath palpitation fever or chills (2) Paroxysmal atrial fibrillation with rapid ventricular response: Code(s): I48.0 - Paroxysmal atrial fibrillation Status: Acute Assessment and Plan: Patient HR up to 170 on 11/27 but converted to NSR with Lopressor IV once. Patient started on Toprol XL and rhytm overall remaining stable. Continue Metoprolol at current dose. Unable to advance due to the bradycardia at times. Continue tele. Plan for ASA only for stroke prevention. Appreciate Cardiology input. (3) Elevated LFTs: Code(s): R94.5 - Abnormal results of liver function studies Status: Acute Assessment and Plan: As above. (4) Acute biliary pancreatitis without infection or necrosis: Code(s): K85.10 - Biliary acute pancreatitis without necrosis or infection Status: Resolved Assessment and Plan: As above. (5) Elevated troponin: Code(s): R79.89 - Other specified abnormal findings of blood chemistry Status: Acute Assessment and Plan: Troponin peaked at 0.073 and is trending downward. Etiology unclear but could be related to intermittent tachy-arrhythmias. Echo results showing EF 60% otherwise unremarkable; no regional wall motion abnormality. Heparin drip stopped. Appreciate Cardiology input. (6) Acute bronchitis: Qualifiers: Bronchitis organism: unspecified organism Qualified Code(s): J20.9 - Acute bronchitis, unspecified Code(s): J20.9 - Acute bronchitis, unspecified Status: Acute Assessment and Plan: Patient with probably viral syndrome/Acute Bronchitis with cough and worsening wheezing. Cough and wheezing much better with nebs and steroids. CT chest showing no infiltrative process to suggest PNA. Sputum Cx still pending. Pertussis negative. She has completed Azithromycin. Will continue Xopenex. Okay to stop Pulmozyme. Will stop steroids due to upcoming surgery and follow clinincally. Resume steroids i
--- NOTE | 2019-12-05 14:32 | PCDIET ---
Nutrition LOS screen Complete: Pt current nutrition is Low Fat Nutrition recommendation: Agree Last recorded weight is 76.6 kg. Bowel Motility: BM today Labs Reviewed: Na 134, Glucose 108, Albumin 2.8, AST 35, ALT 80 Meds Noted: Tums, Drisdol, Zofran, Miralax, Metamucil Additional Notes: Seeing pt today due to LOS. Average intake outside of surgery NPO has averaged 71% of meals. Pt is s/p cholecystectomy. Diet advanced to low fat. Would recommend digestive aids for lipids in the absence of gallbladder. No other nutrition needs at this time.
[2019-12-06] VITALS (15 sets, daily range): BP systolic 118–142; BP diastolic 46–72; PULSE 67–78; RESP 16–20; TEMP 36.5–36.8; O2SAT 93–96
[2019-12-06] MEDS: LEVALBUTEROL NEB 1.25 MG/3 ML 0.63 MG INHALATION ×4 (02:20→19:40)
[2019-12-06 06:18] LABS: Hematocrit 37.1 % (37.0-47.0); Hemoglobin 12.1 g/dL (12.0-15.0); Mean Corpuscular HGB Conc 32.6 g/dl (32-36); Mean Corpuscular Hemoglobin 30.3 pg (26-34); Mean Corpuscular Volume 92.8 fl (80-100); Mean Platelet Volume 12.6 fl (7.4-10.4); Platelet Count Result 225 k/mm3 (150-375); Red Cell Distribution Width 14.1 % (11.5-14.5); White Blood Count 12.8 K/mm3 (4.5-10.0)
[2019-12-06 06:44] LABS: Alanine Aminotransferase 35 U/L (4-35); Albumin Level 3.1 g/dL (3.5-5.1); Alkaline Phosphatase 73 U/L (38-126); Aspartate Amino Transferase 19 U/L (14-36); Bilirubin,Total 0.8 mg/dL (0.2-1.3); Blood Urea Nitrogen 13 mg/dL (7-17); Calcium 8.4 mg/dL (8.4-10.2); Carbon Dioxide 30 mmol/L (22-30); Chloride 97 mmol/L (98-107); Estimated CRCL calculation 51 ml/min; Estimated Glomerular Filt Rate > 60; Glucose 112 mg/dL (65-105); Potassium 3.7 mmol/L (3.4-5.0); Sodium 131 mmol/L (137-145)
--- NOTE | 2019-12-06 07:39 | PM.PNGS ---
Progress Note: A&P Assessment and Plan (1) Acute biliary pancreatitis without infection or necrosis: Code(s): K85.10 - Biliary acute pancreatitis without necrosis or infection Status: Resolved Assessment and Plan: LFTs normal. No evidence of recurrent pancreatitis. (2) Cholelithiasis with chronic cholecystitis: Qualifiers: Cholelithiasis location: gallbladder and bile duct Biliary obstruction: with biliary obstruction Qualified Code(s): K80.65 - Calculus of gallbladder and bile duct with chronic cholecystitis with obstruction Code(s): K80.10 - Calculus of gallbladder with chronic cholecystitis without obstruction Status: Chronic Assessment and Plan: Pain is mostly at LUDA drain site. Will DC LUDA drain today. Patient can go home today if okay with others. Her white blood cell count is higher and I would probably repeat that in a few days but she looks good and is eating well. From a surgical standpoint she would be okay to be discharged. (3) Parastomal hernia without obstruction or gangrene: Code(s): K43.5 - Parastomal hernia without obstruction or gangrene Status: Acute Assessment and Plan: Chronic peristomal hernia. Probably the reason for colostomy output problems. No repair planned at this time. (4) Secondary malignancy of right lung: Code(s): C78.01 - Secondary malignant neoplasm of right lung Status: Acute (5) History of rectal cancer: Code(s): Z85.048 - Personal history of other malignant neoplasm of rectum, rectosigmoid junction, and anus Status: Acute Subjective Subjective Date/Time Seen: 12/06/19 07:39 Patient reports: no new complaints, pain is less ( having pain at drain site only.), tolerating a regular diet ( Eating low-fat diet well.) and no bowel movement ( Minimal colostomy output.) Review of Systems Review of Systems: All systems reviewed & are unremarkable except as noted in HPI and below ( HPI) Exam GI: Inspection: non-distended, incision ( Incisions healing well. Serosanguineous fluid in LUDA drain.), obesity and visible herniation ( large parastomal hernia again noted. Not much in colostomy bag.) GI Palp: Yes Soft to palpation and Yes Tenderness to palpation present (GI) ( Mild postsurgical tenderness as appropriate.) Auscultation: normal bowel sounds Objective Data Vital Signs Vital Signs: Vital Signs - 24 hr 12/05/19 08:00 12/05/19 08:24 12/05/19 08:32 Temperature 36.4 C L Pulse Rate 68 68 Respiratory Rate 16 20 Blood Pressure 147/61 H Pulse Oximetry 96 98 12/05/19 08:57 12/05/19 09:03 12/05/19 14:45 Temperature Pulse Rate 65 60 71 Respiratory Rate 20 20 20 Blood Pressure Pulse Oximetry 98 12/05/19 14:57 12/05/19 16:00 12/05/19 20:01 Temperature 36.7 C Pulse Rate 74 70 61 Respiratory Rate 20 16 18 Blood Pressure 144/63 H Pulse Oximetry 97 12/05/19 20:12 12/05/19 22:47 12/06/19 02:20 Temperature 36.7 C Pulse Rate 66 69 73 Respiratory Rate 18 22 H 20 Blood Pressure 141/80 H Pulse Oximetry 94 12/06/19 02:27 Temperature Pulse Rate 70 Respiratory Rate 20 Blood Pressure Pulse Oximetry Intake/Output Intake/Output: Intake & Output 12/03/19 12/04/19 12/05/19 12/06/19 23:59 23:59 23:59 23:59 Intake Total 043 749 2630 100 Output Total 1030 1620 1575 80 Balance -580 -1070 -110 20 Meds/Results Medications: Active Medications Generic Name Dose Route Start Last Admin Trade Name Freq PRN Reason Stop Dose Admin Hydrocodone Bitart/Acetaminophen 1 tab 12/03/19 16:55 12/05/19 22:18 [place] 5-325 Mg PO 1 tab Q4H PRN Administration Pain Rated 4-6 Hydrocodone Bitart/Acetaminophen 1 tab 12/03/19 16:55 [place] 7.5-325 Mg PO Q4H PRN Pain Rated 7-10 Aspirin 324 mg 11/30/19 09:00 12/05/19 08:23 Aspirin Ec PO 324 mg DAILY [facility] Administration Calcium Carbonate 200 mg 11/27/19 09:36
[2019-12-06] MEDS: polyethylene glycoL 3350 17 GM POWD.PACK PO (08:50)
[2019-12-06] MEDS: ENOXAPARIN 40 MG/0.4 ML SYRINGE SUB-Q (08:51)
[2019-12-06] MEDS: METOPROLOL SUCCINATE EXT REL 25 MG TABCR PO (08:51)
[2019-12-06] MEDS: ASPIRIN 81 MG ENTERIC TABLET 324 MG PO (08:51)
[2019-12-06] MEDS: PANTOPRAZOLE 40 MG TABLET PO (08:51)
[2019-12-06] MEDS: TOLNAFTATE 1% POWDER 45 GM BTL 1 APPLIC TOPICAL ×2 (08:52→21:08)
--- NOTE | 2019-12-06 09:04 | WPDGIPROGNO ---
Progress Note: A&P Additional Plan Patient reports some incisional tenderness. Otherwise tolerating diet. Physical exam reveals her to be afebrile. Anicteric. Lungs are clear. Abdomen is soft with incisional tenderness noted. Left side colostomy with peristomal hernia stable. Impression 1. Leukocytosis. WBC 12.8 this morning. I understand she is to be observed 1 day given this finding. 2. Status post cholecystectomy for cholelithiasis and cholecystitis. Surgery following. Anticipate discharge over next day or 2. 3. Lung metastases. With history of colorectal carcinoma. Followed by Oncology elsewhere. Not in acute problem. Subjective Date/time seen: 12/06/19 09:04 Objective Data Vital Signs Vital Signs: Vital Signs - 24 hr 12/05/19 14:45 12/05/19 14:57 12/05/19 16:00 Temperature 36.7 C Pulse Rate 71 74 70 Respiratory Rate 20 20 16 Blood Pressure 144/63 H Pulse Oximetry 97 12/05/19 20:01 12/05/19 20:12 12/05/19 22:47 Temperature 36.7 C Pulse Rate 61 66 69 Respiratory Rate 18 18 22 H Blood Pressure 141/80 H Pulse Oximetry 94 12/06/19 02:20 12/06/19 02:27 12/06/19 08:42 Temperature Pulse Rate 73 70 67 Respiratory Rate 20 20 20 Blood Pressure Pulse Oximetry 94 12/06/19 08:48 12/06/19 08:51 Temperature Pulse Rate 78 78 Respiratory Rate 20 Blood Pressure Pulse Oximetry Intake/Output Intake/Output: Intake & Output 12/03/19 12/04/19 12/05/19 12/06/19 23:59 23:59 23:59 23:59 Intake Total 942 186 8223 100 Output Total 1030 1620 1575 80 Balance -580 -1070 -110 20 Meds/Results Medications: Active Medications Generic Name Dose Route Start Last Admin Trade Name Freq PRN Reason Stop Dose Admin Hydrocodone Bitart/Acetaminophen 1 tab 12/03/19 16:55 12/05/19 22:18 [place] 5-325 Mg PO 1 tab Q4H PRN Administration Pain Rated 4-6 Hydrocodone Bitart/Acetaminophen 1 tab 12/03/19 16:55 [place] 7.5-325 Mg PO Q4H PRN Pain Rated 7-10 Aspirin 324 mg 11/30/19 09:00 12/06/19 08:51 Aspirin Ec PO 324 mg DAILY [facility] Administration Calcium Carbonate 200 mg 11/27/19 09:36 11/28/19 15:01 Tums PO 200 mg Q6H PRN Administration Indigestion Diphenhydramine HCl 25 mg 12/03/19 16:55 Benadryl Inj IV PUSH Q6H PRN Itching Enoxaparin Sodium 40 mg 11/28/19 11:40 12/06/19 08:51 Lovenox SUB-Q 40 mg DAILY [facility] Administration Ergocalciferol 50,000 unit 12/02/19 09:00 12/02/19 07:57 Drisdol PO 50,000 unit Mo@0900 [facility] Administration Ibuprofen 400 mg 12/03/19 16:55 Motrin PO Q6H PRN Pain Rated 1-3 Levalbuterol HCl 0.63 mg 11/27/19 15:10 12/06/19 08:40 Xopenex 1.25 Mg/3 Ml INHALATION 0.63 mg Q6HRT [facility] Administration Metoprolol Succinate 25 mg 11/30/19 09:00 12/06/19 08:51 Toprol Xl PO 25 mg QAM [facility] Administration Morphine Sulfate 1 mg 12/03/19 16:55 Morphine Sulfate Inj IV PUSH Q2H PRN Pain Rated 4-6 Morphine Sulfate 2 mg 12/03/19 16:55 Morphine Sulfate Inj IV PUSH Q2H PRN Pain Rated 7-10 Naloxone HCl 0.1 mg 12/03/19 16:55 Narcan IV PUSH Q2M PRN Opiate Reversal Nitroglycerin 0.4 mg 11/25/19 21:06 Nitrostat Subl 0.4 Mg (1/150) SUBLINGUAL Q5MIN PRN Chest Pain Ondansetron HCl 4 mg 12/03/19 16:55 12/05/19 22:19 Zofran Inj IV PUSH 4 mg Q4H PRN Administration Nausea And Vomiting Pantoprazole Sodium 40 mg 11/28/19 09:00 12/06/19 08:51 Protonix PO 40 mg QAM [facility] Administration Polyethylene Glycol 17 gm 12/03/19 09:00 12/06/19 08:50 Miralax PO 17 gm QAM [facility] Administration Psyllium Hydrophilic Mucilloid 1 packet 11/26/19 09:00 12/06/19 08:56 Metamucil Packet PO Not Given DAILY [facility] Tolnaftate 1 applic 11/29/19 21:00 12/06/19 08:52 Tolnaftate 1% Powder TOPICAL 1 applic Q12HR [facility] Administration Vitamin B Complex 1 cap 11/26/19
[2019-12-06] MEDS: VITAMIN B COMPLEX CAPSULE 1 CAP PO (09:50)
--- NOTE | 2019-12-06 10:04 | PM.PNCARD ---
Progress Note: A&P Assessment and Plan (1) Acute biliary pancreatitis without infection or necrosis: Code(s): K85.10 - Biliary acute pancreatitis without necrosis or infection Status: Resolved Assessment and Plan: s/p cholecystectomy surgery fu (2) Paroxysmal atrial fibrillation with rapid ventricular response: Code(s): I48.0 - Paroxysmal atrial fibrillation Status: Acute Assessment and Plan: pt had episode of AFIB with RVR during this admission converted to NSR and remains in NSR cont current dose of Metoprolol not a good candidate for systemic anticoagulation cont ASA (3) History of colon cancer: Code(s): Z85.038 - Personal history of other malignant neoplasm of large intestine Status: Chronic Assessment and Plan: Hx of ca with meds PC, GI and oncology fu (4) Elevated troponin: Code(s): R79.89 - Other specified abnormal findings of blood chemistry Status: Acute Assessment and Plan: pt had borderline troponin in setting of pancreatitis in pt with metastatic ca cont meds Pt appears stable from cardiac standpoint. Disposition per PC. Fu in clinic in 1-2 weeks. Subjective Date/time seen: 12/06/19 10:04 Pt feels fine today. Complains for some discomfort around abdominal drain. Had BM today per her nurse. Surgery following. Plan for dc in AM. Pt was seen and examined, chart was reviewed, case d/w pt's nurse. Review of Systems Review of Systems: All systems reviewed & are unremarkable except as noted in HPI and below Constitutional: Constitutional: Reports as per HPI Eyes: Eyes: Reports as per HPI ENT: Reports system reviewed and no additional complaints, except as documented and Reports as per HPI Cardiovascular: Cardiovascular: Reports as per HPI Respiratory: Respiratory: Reports as per HPI Gastrointestinal: Gastrointestinal: Reports as per HPI Genitourinary: Genitourinary: Reports as per HPI Musculoskeletal: Musculoskeletal: Reports as per HPI Exam Const: General: no acute distress Nutritional Appearance: well nourished Orientation/consciousness: patient oriented x3 HENMT: Head: normal to inspection and atraumatic Ears: hearing grossly normal bilaterally Face and sinus: normal facial exam Eyes: General: appearance normal, both eyes and all related structures Pupils: Equal, round and reactive pupils present EOM: EOMs intact bilaterally Neck: Neck: supple Chest: Chest palpation & inspection: normal inspection of the chest Resp: Effort & Inspection: normal respiratory effort and no respiratory distress Auscultation: clear to auscultation bilaterally Cardio: Jugular venous distension: no JVD Rate: regular rate Heart sounds: S1 normal heart sound present, S2 normal heart sound present and no murmurs Peripheral pulses: Peripheral pulses 2+ throughout GI: GI Palp: No abdominal tenderness Auscultation: normal bowel sounds Skin: General skin exam: normal color Neuro: General: patient oriented x3 Cranial nerves: Yes Equal, round and reactive pupils present Extrem: General: normal to inspection and no clubbing, cyanosis or edema Objective Data Vital Signs Vital Signs: Vital Signs - 24 hr 12/05/19 14:45 12/05/19 14:57 12/05/19 16:00 Temperature 36.7 C Pulse Rate 71 74 70 Respiratory Rate 20 20 16 Blood Pressure 144/63 H Pulse Oximetry 97 12/05/19 20:01 12/05/19 20:12 12/05/19 22:47 Temperature 36.7 C Pulse Rate 61 66 69 Respiratory Rate 18 18 22 H Blood Pressure 141/80 H Pulse Oximetry 94 12/06/19 02:20 12/06/19 02:27 12/06/19 08:42 Temperature Pulse Rate 73 70 67 Respiratory Rate 20 20 20 Blood Pressure Pulse Oximetry 94 12/06/19 08:48 12/06/19 08:51 Temperature Pulse Rate 78 78 Respiratory Rate 20 Blood Pressure Pulse Oximetry Intake/Output Intake/Output: Intake & Output 12/03/19 12/04/19 12/05/19 12/06/19 23:59 23:59 23:59 23:59 Intake Total
--- NOTE | 2019-12-06 10:05 | PCPTNOTE ---
Attempted Therapy Session. Pt was sound a sleep and unable to wake fully. Will attempt again.
[2019-12-06] MEDS: AMOXICILLIN/CLAVULANATE K 875-125 MG TAB 1 TABLET PO ×2 (11:40→21:05)
--- NOTE | 2019-12-06 11:58 | PCOTNOTE ---
Attempted OT treatment. Patient states she does not feel well and cannot do therapy this date. Will continue to attempt.
--- NOTE | 2019-12-06 13:04 | PM.IMPN ---
Progress Note: A&P Assessment and Plan (1) Cholelithiasis with chronic cholecystitis: Qualifiers: Biliary obstruction: with biliary obstruction Cholelithiasis location: gallbladder and bile duct Qualified Code(s): K80.65 - Calculus of gallbladder and bile duct with chronic cholecystitis with obstruction Code(s): K80.10 - Calculus of gallbladder with chronic cholecystitis without obstruction Status: Chronic Assessment and Plan: Pt is s/p laparoscopic cholecystectomy 12/03/[address] Diaz. She reports mild discomfort at the site where her LUDA drain was removed. She also endorses mild nausea. She denies vomiting. She has a small amount of loose stool in her colostomy bag today. Post-op care per Dr. Diaz/general surgery (2) Paroxysmal atrial fibrillation with rapid ventricular response: Code(s): I48.0 - Paroxysmal atrial fibrillation Status: Acute Assessment and Plan: Pt had paroxysmal atrial fibrillation but converted to NSR with IV lopressor. She is on metoprolol XL and has remained in normal sinus rhythm. Cardiology is on board and pt is not a good candidate for systemic anticoagulation. Recommendations are greatly appreciated. Continue metoprolol Pt will follow-up with cardiology outpatient in 1-2 weeks (3) Elevated LFTs: Code(s): R94.5 - Abnormal results of liver function studies Status: Resolved Assessment and Plan: LFTs reviewed and are WNL. (4) Acute biliary pancreatitis without infection or necrosis: Code(s): K85.10 - Biliary acute pancreatitis without necrosis or infection Status: Resolved Assessment and Plan: Lipase trended down and was 274 12/02. Pt's pain has resolved. She endorses mild nausea today but did not feel it was severe enough to warrant zofran. She is tolerating PO intake. (5) Elevated troponin: Code(s): R79.89 - Other specified abnormal findings of blood chemistry Status: Acute Assessment and Plan: Troponin peaked at 0.073 11/25 and trended down. Etiology was unclear but could be related to intermittent tachy-arrhythmias. Echo revealed EF 60% and was otherwise unremarkable. There was no regional wall motion abnormality. Cardiology was consulted and ACS was not suspected. IV heparin was discontinued and ASA was initiated. She will follow-up with cardiology outpatient. She has no complaints of chest pain. (6) Acute bronchitis: Qualifiers: Bronchitis organism: unspecified organism Qualified Code(s): J20.9 - Acute bronchitis, unspecified Code(s): J20.9 - Acute bronchitis, unspecified Status: Acute Assessment and Plan: Patient was felt to have viral syndrome/acute Bronchitis with cough and worsening wheezing. Her sx improved with steroids and nebulizer. Steroids were discontinued due to her upcoming surgery. CT chest showed no infiltrative process to suggest PNA. Sputum Cx negative. Pertussis negative. She completed Azithromycin. Continue Xopenex Consider steroids if wheezing develops (7) HTN (hypertension) with goal to be determined: Code(s): I10 - Essential (primary) hypertension Status: Chronic Assessment and Plan: BP reviewed and the systolic BP is elevated in 140s but the BP was taken during the time when her LUDA drain was pulled and she was in pain. Repeat BP this afternoon is at target at 127/72. Continue metoprolol XR 25mg PO QAM (8) Parastomal hernia without obstruction or gangrene: Code(s): K43.5 - Parastomal hernia without obstruction or gangrene Status: Acute Assessment and Plan: The pt has a large parastomal hernia which is unchanged when compared to CT in November 2018. Continue miralax (9) History of colon cancer: Code(s): Z85.038 - Personal history of other malignant neoplasm of large intestine Status: Chronic Assessment and Plan: Patient has a history of colon cancer s/p
[2019-12-06 15:52] LABS: Add Urine Microscopic? YES; Appearance Urine Clear (Clear); Bilirubin Urine Negative (Negative); Blood Urine 1+ (Negative); Color Urine Amber (Yellow); Glucose Urine UA Negative (Negative); Ketones Urine Trace mg/dL (Negative); Leukocyte Esterase Ur Negative LEU/UL (Negative); Mucus Urine Few /lpf; Nitrate Urine Negative (Negative); Protein Urine Negative (Negative); RBC Urine 0-2 /hpf (0-2); Specific Grav Ur 1.021 (1.001-1.035); Squamous Epithelial Cell Urine Few /hpf (Few); Urobilinogen Urine Negative mg/dL (<2.0)
[2019-12-07 01:00] VITALS: PULSE 68; RESP 20
[2019-12-07] MEDS: LEVALBUTEROL NEB 1.25 MG/3 ML 0.63 MG INHALATION ×2 (01:00→08:48)
[2019-12-07 01:11] VITALS: PULSE 68; RESP 20
[2019-12-07 04:58] VITALS: BP 128/46; PULSE 70; RESP 20; TEMP 36.2; O2SAT 95
[2019-12-07 06:06] LABS: Basophils Percent Auto 0.2 % (0.2-1.2); Eosinophils Absolute Auto 0.4 K/mm3 (0-0.3); Eosinophils Percent Auto 3.7 % (0-4.4); Hematocrit 32.1 % (37.0-47.0); Hemoglobin 10.7 g/dL (12.0-15.0); Immature Granulocyte Absolute 0.11 K/mm3 (0.00-0.031); Lymphocytes Absolute Auto 0.58 K/mm3 (0.9-3.2); Lymphocytes Percent Auto 5.2 % (18.3-44.2); Mean Corpuscular HGB Conc 33.3 g/dl (32-36); Mean Corpuscular Hemoglobin 30.5 pg (26-34); Mean Corpuscular Volume 91.5 fl (80-100); Mean Platelet Volume 11.7 fl (7.4-10.4); Monocytes Percent Auto 8.7 % (2.6-8.5); Neutrophils Percent Auto 81.2 % (45.5-73.1); Platelet Count Result 201 k/mm3 (150-375); Red Blood Count 3.51 M/mm3 (4.2-5.4); Red Cell Distribution Width 14.2 % (11.5-14.5); White Blood Count 11.1 K/mm3 (4.5-10.0)
[2019-12-07 06:17] LABS: Blood Urea Nitrogen 11 mg/dL (7-17); Calcium 8.1 mg/dL (8.4-10.2); Carbon Dioxide 31 mmol/L (22-30); Chloride 98 mmol/L (98-107); Estimated CRCL calculation 51 ml/min; Estimated Glomerular Filt Rate > 60; Glucose 102 mg/dL (65-105); Potassium 3.7 mmol/L (3.4-5.0); Sodium 131 mmol/L (137-145)
[2019-12-07 08:13] VITALS: PULSE 79
[2019-12-07] MEDS: polyethylene glycoL 3350 17 GM POWD.PACK PO (08:13)
[2019-12-07] MEDS: PANTOPRAZOLE 40 MG TABLET PO (08:13)
[2019-12-07] MEDS: VITAMIN B COMPLEX CAPSULE 1 CAP PO (08:13)
[2019-12-07] MEDS: ENOXAPARIN 40 MG/0.4 ML SYRINGE SUB-Q (08:13)
[2019-12-07] MEDS: METOPROLOL SUCCINATE EXT REL 25 MG TABCR PO (08:13)
[2019-12-07] MEDS: AMOXICILLIN/CLAVULANATE K 875-125 MG TAB 1 TABLET PO (08:13)
[2019-12-07] MEDS: TOLNAFTATE 1% POWDER 45 GM BTL 1 APPLIC TOPICAL (08:14)
[2019-12-07] MEDS: ASPIRIN 81 MG ENTERIC TABLET 324 MG PO (08:14)
[2019-12-07 08:49] VITALS: PULSE 81; RESP 18; O2SAT 98
[2019-12-07 08:58] VITALS: PULSE 80; RESP 18
[2019-12-07] MEDS: AZITHROMYCIN 250 MG TABLET 500 MG PO (10:17)
--- NOTE | 2019-12-07 11:26 | PM.DS ---
DS: Diagnosis Admitting Diagnosis Admitting Diagnosis: Epigastric pain Discharge Diagnosis (1) Cholelithiasis with chronic cholecystitis: Qualifiers: Cholelithiasis location: gallbladder and bile duct Biliary obstruction: with biliary obstruction Qualified Code(s): K80.65 - Calculus of gallbladder and bile duct with chronic cholecystitis with obstruction Code(s): K80.10 - Calculus of gallbladder with chronic cholecystitis without obstruction Status: Chronic (2) Paroxysmal atrial fibrillation with rapid ventricular response: Code(s): I48.0 - Paroxysmal atrial fibrillation Status: Acute (3) Elevated LFTs: Code(s): R94.5 - Abnormal results of liver function studies Status: Resolved (4) Acute biliary pancreatitis without infection or necrosis: Code(s): K85.10 - Biliary acute pancreatitis without necrosis or infection Status: Resolved (5) Elevated troponin: Code(s): R79.89 - Other specified abnormal findings of blood chemistry Status: Acute (6) Acute bronchitis: Qualifiers: Bronchitis organism: unspecified organism Qualified Code(s): J20.9 - Acute bronchitis, unspecified Code(s): J20.9 - Acute bronchitis, unspecified Status: Acute (7) HTN (hypertension) with goal to be determined: Code(s): I10 - Essential (primary) hypertension Status: Chronic (8) Parastomal hernia without obstruction or gangrene: Code(s): K43.5 - Parastomal hernia without obstruction or gangrene Status: Acute (9) History of colon cancer: Code(s): Z85.038 - Personal history of other malignant neoplasm of large intestine Status: Chronic Assessment and Plan: Patient has a history of colon cancer s/p resection with colostomy and known pulmonary mets. CT of the chest revealed slight interval decrease in size of a RML nodule which measures up to 1.8 cm (previously 2.2cm). A 1.0 cm nodule of the right middle lobe previously measured 1.4 cm. There is a stable 1 cm nodule of the right lower lobe. Patient had recent XRT treatment last month x5 treatments. Continue follow-up with Heme/Onc in [place] (10) Extravasation injury of intravenous catheter site with other complication: Qualifiers: Encounter type: subsequent encounter Qualified Code(s): T82.898D - Other specified complication of vascular prosthetic devices, implants and grafts, subsequent encounter Code(s): T82.898A - Other specified complication of vascular prosthetic devices, implants and grafts, initial encounter Status: Acute (11) Leukocytosis: Code(s): D72.829 - Elevated white blood cell count, unspecified Status: Acute (12) Urinary urgency: Code(s): R39.15 - Urgency of urination Status: Acute (13) Cystic mass of pancreas: Code(s): K86.2 - Cyst of pancreas Status: Acute Assessment and Plan: Follow-up MRI w/ and w/o contrast is recommended in 1 year. I will call to discuss this with her PCP. DS: Summary Hospital Course Reason for hospitalization: Mrs. Ybarra is an 84 y.o. female with PMH significant for rectal cancer diagnosed in 2016 s/p chemo, radiation, and abdominal perineal resection in 2016 with right-sided lung nodules which were found to be metastatic rectal cancer s/p radition who presented to the ED with c/o epigastric abdominal pain that radiated up to the chest. She also c/o nonproductive cough for one week. Initial workup in the ED revealed initial troponin of 0.022 which increased to 0.054, CTA abd/pelvis which revealed right lung nodules which were stable to decreased in size consistent with metastatic disease and a large parastomal hernia with nonobstructed transverse colon and chronic mild fat stranding surrounding the gallbladder. CBC and CMP were otherwise unremarkable. EKG revealed sinus rhythm with nonspecific ST change and right bundle branch block. While in CT, IV contrast
== END 2019-12-07 12:53 | disposition home or self-care (01) | DRG 418 ==
LOC: ANHED 17:05 → ANHIMU 21:32 → ANH3MED 11-27 18:18 → ANHIMU 12-02 16:43 → ANH3MED 12-04 22:29 → ANHIMU 12-09 12:48
PROVIDERS: Family Medicine; Internal Medicine; Internal Medicine Cardiovascular Disease; Physician Assistant; Surgery; Admitting Provider Family Medicine; Emergency Provider Emergency Medicine; PCP Internal Medicine; Visit Provider Family Medicine
PROC: 0FT44ZZ Resection of Gallbladder, Percutaneous Endoscopic Approach (ICD-10-PCS; CPT 47562; principal; 2019-12-03 15:00)
DX: K85.10 Biliary acute pancreatitis without necrosis or infection (principal); K80.65 Calculus of gallbladder and bile duct with chronic cholecystitis with obstruction; C78.00 Secondary malignant neoplasm of unspecified lung; I10 Essential (primary) hypertension; Z90.49 Acquired absence of other specified parts of digestive tract; J20.9 Acute bronchitis, unspecified; M19.90 Unspecified osteoarthritis, unspecified site; I48.0 Paroxysmal atrial fibrillation; Z93.3 Colostomy status; B34.9 Viral infection, unspecified; K43.5 Parastomal hernia without obstruction or gangrene; Z85.038 Personal history of other malignant neoplasm of large intestine; Z98.49 Cataract extraction status, unspecified eye; H40.9 Unspecified glaucoma; M10.9 Gout, unspecified; Z92.3 Personal history of irradiation; Z85.048 Personal history of other malignant neoplasm of rectum, rectosigmoid junction, and anus; F32.9 Major depressive disorder, single episode, unspecified; K64.9 Unspecified hemorrhoids; E78.5 Hyperlipidemia, unspecified; Z85.118 Personal history of other malignant neoplasm of bronchus and lung; G20 Parkinson's disease; Z87.19 Personal history of other diseases of the digestive system; Z87.440 Personal history of urinary (tract) infections; Z96.1 Presence of intraocular lens; Z28.21 Immunization not carried out because of patient refusal; R00.1 Bradycardia, unspecified; R39.15 Urgency of urination; R39.11 Hesitancy of micturition
CPT/HCPCS: 36415; 71046; 71275; 74019; 74175; 74183; 76376; 76705; 80048; 80053; 80061; 81001; 82247; 82248; 83615; 83690; 83735; 83880; 84100; 84484; 85025; 85027; 85610; 85730; 87070; 87205; 87798; 87804; 88304; 93005; 94640; 96365; 96366; 96375; 96376; 97110; 97116; 97161; 97165; 97530; 97535; 99285; A9270; A9577; C8929; G0378; J0690; J1100; J1644; J1650; J2270; J2405; J2704; J2710; J2920; J3010; J7030; J7120; J7512; Q9957; Q9967

== ENCOUNTER 2019-12-23 10:25 | Outpatient (CLI) | payer MEDICARE, SELFPAY ==
[2019-12-23 10:53] LABS: Basophils Percent Auto 0.9 % (0.2-1.2); Eosinophils Absolute Auto 0.3 K/mm3 (0-0.3); Eosinophils Percent Auto 5.9 % (0-4.4); Hematocrit 35.6 % (37.0-47.0); Hemoglobin 11.7 g/dL (12.0-15.0); Immature Granulocyte Absolute 0.02 K/mm3 (0.00-0.031); Immature Granulocyte Percent A 0.5 % (0-0.5); Lymphocytes Absolute Auto 1.04 K/mm3 (0.9-3.2); Lymphocytes Percent Auto 23.6 % (18.3-44.2); Mean Corpuscular HGB Conc 32.9 g/dl (32-36); Mean Corpuscular Hemoglobin 30.7 pg (26-34); Mean Corpuscular Volume 93.4 fl (80-100); Monocytes Absolute Auto 0.5 K/mm3 (0.1-0.6); Monocytes Percent Auto 11.8 % (2.6-8.5); Neutrophils Absolute Auto 2.5 K/mm3 (1.3-6.7); Neutrophils Percent Auto 57.3 % (45.5-73.1); Platelet Count Result 194 k/mm3 (150-375); Red Blood Count 3.81 M/mm3 (4.2-5.4); Red Cell Distribution Width 14.7 % (11.5-14.5); White Blood Count 4.4 K/mm3 (4.5-10.0)
== END 2019-12-23 10:26 | disposition home or self-care (01) ==
PROVIDERS: PCP Internal Medicine; Visit Provider Physician Assistant
DX: D72.829 Elevated white blood cell count, unspecified (principal)
CPT/HCPCS: 36415; 85025

== ENCOUNTER 2020-10-21 09:41 | Outpatient (CLI) | payer MEDICARE, SELFPAY ==
--- NOTE | ~2020-10-21 | CT_ITS ---
EXAMINATION: CT chest abdomen pelvis w con DATE: 10/21/2020 10:24 [facility] INDICATION: Malignant neoplasm of the rectum. Pulmonary nodules. TECHNIQUE: Computed tomography (CT) of the chest, abdomen, and pelvis was performed without intraveno us contrast. The dose-length product was 801.91 mGy-cm. Automated exposure control and iterative nori nstruction technique were employed. COMPARISON: CT dated 11/25/2019 FINDINGS: CHEST CT: No thoracic lymphadenopathy. No evidence for aortic aneurysm or dissection. There is atherosclerosis of the coronary arteries. Heart size normal. Small right pleural effusion. There is right middle lobe consolidation in the area of previously identified nodule. Right lower lobe nodule has increased in size now measuring 2.3 cm x 1.6 cm compared with 1.1 x 0.8 cm on prior examination. There is left low er lobe atelectasis ABDOMEN/PELVIS CT: The liver, spleen, pancreas, right adrenal gland and kidneys are unremarkable. There is a stable 1.8 cm left adrenal mass, statistically most likely an adenoma. No evidence for aortic aneurysm or dissec tion. Status post cholecystectomy. There is a persistent left parastomal hernia containing nonobstruc chai bowel. Status post partial colectomy. No evidence for bowel obstruction. No free air or free flui d. Severe lumbar spondylosis. IMPRESSION: 1. Enlargement of right lower lobe nodule measuring 2.3 x 1.6 cm compared with 1.1 x 0.8 cm on 020, compatible with progression of metastatic disease. Consolidation of the right middle lobe in the area of previously identified nodule is noted. Cannot exclude residual metastatic disease at this lo cation, superimposed by consolidation. 2: Stable large left parastomal hernia containing nonobstructed colon. Reviewed, dictated and finalized at location B. PACKER IMPRESSION: 1. Enlargement of right lower lobe nodule measuring 2.3 x 1.6 cm compared with 1.1 x 0.8 cm on 11/25/2019, compatible with progression of metastatic disease. C onsolidation of the right middle lobe in the area of previously identified nodu le is noted. Cannot exclude residual metastatic disease at this location, super imposed by consolidation. 2: Stable large left parastomal hernia containing nonobstructed colon.
[2020-10-21 10:05] LABS: Estimated Glomerular Filt Rate > 60
== END 2020-10-21 09:42 | disposition home or self-care (01) ==
PROVIDERS: PCP Internal Medicine; Visit Provider Internal Medicine Medical Oncology
DX: C20 Malignant neoplasm of rectum (principal); R91.8 Other nonspecific abnormal finding of lung field
CPT/HCPCS: 71260; 74177; Q9967

== ENCOUNTER 2022-02-22 10:26 | Inpatient (IN) | payer MEDICARE, SELFPAY ==
[2022-02-22] VITALS (26 sets, daily range): BP systolic 103–140; BP diastolic 58–77; PULSE 64–112; RESP 16–26; TEMP 36.7; O2SAT 91–99
--- NOTE | ~2022-02-22 | MR_ITS ---
EXAMINATION: MR MRCP wo/w con/w 3D wo ind DATE: 02/24/2022 16:01 INDICATION: Obstructive jaundice. TECHNIQUE: Magnetic resonance imaging (MRI) of the abdomen was performed without and with 13 mL Multi Shane intravenous contrast. Sequences included coronal T2-weighted FS FSE, coronal T2-weighted FSE, a xial T1-weighted LAVA, coronal FS FIESTA, axial dual-echo T1-weighted SPGR, coronal lava-FLEX, sagitt al T2-weighted FSE, axial T2-weighted FSE, and axial DWI. Thick-slab T2-weighted FSE images were obta ined for magnetic resonance cholangiopancreatography (MRCP). Maximum intensity projection 3-D reconst ructions of the volumetric data were created by the technologist. Postcontrast sequences included cor onal LAVA-flex and time course of axial T1-weighted LAVA. COMPARISON: MRCP 11/29/2019, chest CT 10/21/2020 FINDINGS: ABDOMEN MRI: There is a moderate-sized right pleural effusion. There is a trace left pleural effusion . There are airspace opacities in right lower lobe and right middle lobe, likely atelectasis and radi ation fibrosis. Cardiomegaly is noted. No pericardial effusion. There is severe intrahepatic bile neto t dilatation. There is a 2.9 cm mass in the head of the pancreas. The pancreatic duct is dilated to 5 mm. The spleen and right adrenal gland are normal. There is a chronic 10 mm mass in left adrenal gla nd containing microscopic fat, consistent with an adenoma. The kidneys are normal. There is an end co lostomy in left abdomen with parastomal hernia containing nonobstructed transverse colon. There are n o pathologically enlarged lymph nodes. There is no free intraperitoneal fluid. ABDOMEN MRCP: There is severe intrahepatic and extrahepatic biliary duct dilatation and dilatation of the pancreatic duct proximal to a malignant stricture in the head of the pancreas. IMPRESSION: 1. 2.9 cm mass in the head of the pancreas, consistent with primary adenocarcinoma. 2. Severe intrahepatic and extrahepatic biliary duct dilatation. 3. Moderate-sized right pleural effusion. 4. Parastomal hernia containing nonobstructed transverse colon. Reviewed, dictated and finalized at location B. IMPRESSION: 1. 2.9 cm mass in the head of the pancreas, consistent with primary adenocarcin chasity. 2. Severe intrahepatic and extrahepatic biliary duct dilatation. 3. Moderate-sized right pleural effusion. 4. Parastomal hernia containing nonobstructed transverse colon.
--- NOTE | ~2022-02-22 | XR_ITS ---
EXAMINATION: [id number] DATE: 02/25/2022 12:49 INDICATION: Right pleural effusion postthoracentesis TECHNIQUE: frontal and lateral views of the chest were obtained. COMPARISON: Chest radiograph dated 12/06/2019 FINDINGS: Oblique bandlike opacity in the anterior right lower lung zone corresponding to chronic right middle lobe collapse seen on CT dated 10/21/2020. Additional minimal atelectasis at the left costophrenic ang le. No residual pleural effusion. No pulmonary edema or pneumothorax. The cardiomediastinal silhouett e is normal. There are bridging osteophytes at multiple levels in the spine, consistent with diffuse idiopathic skeletal hyperostosis (DISH). Cholecystectomy clips in the right upper quadrant. IMPRESSION: 1. No pneumothorax or residual right pleural effusion post right thoracentesis. 2. Chronic right middle lobe collapse. Reviewed, dictated and finalized at location A.
--- NOTE | ~2022-02-22 | US_ITS ---
EXAMINATION: US abdomen limited DATE: 02/24/2022 12:39 INDICATION: Abnormal liver function tests. TECHNIQUE: Multiple grayscale and Doppler ultrasound images of the abdomen were obtained. COMPARISON: CT abdomen and pelvis 02/22/2022, 10/21/2020 FINDINGS: There is an ill-defined mass in the head of the pancreas. There is severe intrahepatic bili aaron duct dilatation. The common duct is dilated to 18 mm. There is normal flow in main portal vein. T he gallbladder is absent. IMPRESSION: 1. Mass in the head of the pancreas, consistent with primary adenocarcinoma. Abdomen MRI without and with contrast is recommended. 2. Severe intrahepatic and extrahepatic biliary duct dilatation. Reviewed, dictated and finalized at location B. IMPRESSION: 1. Mass in the head of the pancreas, consistent with primary adenocarcinoma. Ab domen MRI without and with contrast is recommended. 2. Severe intrahepatic and extrahepatic biliary duct dilatation.
--- NOTE | ~2022-02-22 | XR_ITS ---
EXAMINATION: XR chest 1V portable DATE: 02/24/2022 12:54 INDICATION: Pleural effusion TECHNIQUE: frontal view of the chest was obtained. COMPARISON: Chest radiograph dated 12/06/[address] dated 10/21/2020 FINDINGS: Opacities in the right mid to lower lung zone which silhouettes the right heart border consistent wit h persistent right middle lobe collapse. A right lower lobe nodule suspicious for malignancy seen on prior CT is likely superimposed over the collapsed right middle lobe. Minimal right pleural effusion at the costophrenic angle. Left lung remains clear. No pulmonary edema, pneumothorax or left-sided pl eural effusion. The cardiomediastinal silhouette is within normal limits for AP technique. . There ar e bridging osteophytes at multiple levels in the spine, consistent with diffuse idiopathic skeletal h yperostosis (DISH). IMPRESSION: 1. Opacities in the right mid to lower lung zone corresponding to right middle lobe collapse and righ t lower lobe nodule concerning for primary bronchogenic carcinoma. 2. Very small right pleural effusion. Reviewed, dictated and finalized at location A. IMPRESSION: 1. Opacities in the right mid to lower lung zone corresponding to right middle lobe collapse and right lower lobe nodule concerning for primary bronchogenic c arcinoma. 2. Very small right pleural effusion.
--- NOTE | ~2022-02-22 | CT_ITS ---
EXAMINATION: CT abdomen pelvis wo con DATE: 02/22/2022 12:02 INDICATION: Jaundice, weight loss TECHNIQUE: Computed tomography (CT) of the abdomen and pelvis was performed without intravenous contr ast. Automated exposure control and iterative reconstruction technique were employed. Exam dose: 480 .88 mGy-cm total exam DLP. COMPARISON: 10/21/2020 CT chest abdomen pelvis FINDINGS: Moderate right pleural effusion. There is right lower lobe infiltrate and/atelectasis. There is mild discoid atelectasis or scarring in the posterior left lower lobe. Normal heart size. Prominent coronary calcifications. There is mitral annulus calcification. No peric ardial effusion. Small sliding hiatal hernia. Status post cholecystectomy. No hepatic, splenic, pancreatic or right adrenal space-occupying mass le kecia is evident. Approximately 11.9 x 15.2 mm left adrenal mass, likely an adenoma. No renal mass lesion or urinary tract calculus or hydroureteronephrosis. The urinary bladder is unrem arkable. There is extensive calcification of the abdominal aorta and the no abdominal aortic aneurysm. No intr aperitoneal or retroperitoneal or pelvic mass lesion or adenopathy or ascites. There is a large [place] ventral abdominal wall stomal hernia containing nonobstructed transverse c olon. There is a suture line of the herniated transverse colon. No bowel obstruction is evident. No intraperitoneal free air. Old fractures] Degenerative changes of the thoracic and lumbar spine including severe degenerative disc disease thro ughout the mid and lower lumbar and lumbosacral area. Bilateral hip osteoarthritis. IMPRESSION: Large stomal ventral abdominal wall hernia containing transverse colon; no obstruction Status post cholecystectomy Moderate right pleural effusion, bilateral lower lobe infiltrate or atelectasis Small sliding hiatal hernia. Reviewed, dictated and finalized at Location A. Reviewed, dictated and finalized at location A. IMPRESSION: Large stomal ventral abdominal wall hernia containing transverse c olon; no obstruction Status post cholecystectomy Moderate right pleural effusion, bilateral lower lobe infiltrate or atelectasis Small sliding hiatal hernia.
--- NOTE | ~2022-02-22 | XR_ITS ---
EXAMINATION: XR chest 1V portable INDICATION: New onset cough TECHNIQUE: Portable AP chest at 1034 hours COMPARISON: 02/24/2022 FINDINGS: There is persistent collapse of the right middle lobe. Airspace opacities of the right mid and lower lung zones have nearly completely resolved. The lungs are free of acute opacities. There is a trace right pleural effusion. No pneumothorax is identified. The cardiomediastinal silhouette is n ormal. IMPRESSION: 1. Improving airspace opacities of the right mid and lower lung zones, likely resolving atelectasis o r pneumonia. 2. Unchanged collapse of the right middle lobe. Reviewed, dictated and finalized at location A. IMPRESSION: 1. Improving airspace opacities of the right mid and lower lung zones, likely r esolving atelectasis or pneumonia. 2. Unchanged collapse of the right middle lobe.
--- NOTE | ~2022-02-22 | US_ITS ---
EXAMINATION: US thoracentesis DATE: 02/25/2022 13:19 INDICATION: Right pleural effusion TECHNIQUE: The procedure and its risks and benefits were discussed with the patient. Potential risks discussed included bleeding, infection, and pneumothorax. The patient understood the risks and agreed to proceed. The skin was prepped and draped in sterile fashion. 1% lidocaine was used for local anes thesia. Under ultrasound guidance, a 5 Fr catheter with trochar was advanced into the right pleural e ffusion. Fluid was aspirated. The catheter was removed, and a dressing was applied. There were no imm ediate complications. FINDINGS: Ultrasound images demonstrate a small right pleural effusion and the catheter within the fluid. IMPRESSION: 1. Successful ultrasound-guided thoracentesis yielding 300 mL of clear bright yellow fluid. Reviewed, dictated and finalized at location A.
--- NOTE | 2022-02-22 11:50 | ED.GENADULT ---
HPI - General Adult General Chief complaint: Unspecified Stated complaint: jaundiced/discolored urine Time Seen by Provider: 02/22/22 11:37 History of Present Illness HPI narrative: Patient is an 86-year-old female with a history of cholecystitis status post cholecystectomy (2019), colon cancer status post colonic resection, CHF on Lasix, sent here from her primary care office for evaluation of jaundice. Patient states she has noted a yellow discoloration to her skin and sclera for the past week or so, this is increased in nature over the past 2 days. Additionally reporting diffuse itching all over her body, dark and thick urine for the past 2 days. Patient reports nausea but no abdominal pain. Denies recent travel, fevers, chills, dysuria, hematuria, history of liver disease. Per chart review, patient underwent MRCP in 2019 after she was found to have an elevation in her bilirubin to 4.3 with findings of choledocholithiais on RUQ US, which revealed a cystic lesion in the head of the pancreas pushing on the CBD, and underwent subsequent cholecystectomy. Related Data Home Medications Medication Instructions Recorded Confirmed psyllium husk 0.4 gram capsule 0.4 gm PO DAILY 09/20/19 12/24/19 (Fiber (psyllium husk)) apixaban 5 mg tablet (Eliquis) 5 mg PO BID 06/02/21 diltiazem HCl 120 mg 120 mg PO DAILY 06/02/21 capsule,extended release 24 hr furosemide 20 mg tablet 20 mg PO QAM 06/02/21 nitroglycerin 0.4 mg sublingual 0.4 mg sublingual Q5M PRN 06/02/21 tablet Allergies Allergy/AdvReac Type Severity Reaction Status Date / Time No Known Allergies Allergy Unknown Verified 02/22/22 09:44 Review of Systems Review of Systems: Gen: Denies fevers or chills Eyes: Denies eye pain or visual change ENT: Denies congestion Respiratory: Denies shortness of breath or cough CV: Denies chest pain or palpitations GI: Reports nausea. Denies abdominal pain, emesis or diarrhea reports dark urine. Denies burning, urgency, frequency or hematuria Musculoskeletal: Denies back pain or muscle pain Neuro: Denies numbness, tingling, weakness or focal weakness Skin: Reports jaundice Except as documented, all other systems reviewed and negative [facility] Past Medical History Medical History Afib Anal cancer Arthritis Bronchitis Cataract Removed Chronic tension-type headache, not intractable Colostomy in place Constipation Depression 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 GI bleed Glaucoma Gout Heartburn Hemorrhoids Hyperlipidemia Kidney infection Lung cancer right Measles Osteoarthritis Parkinsons disease Pneumonia Rectal polyp Recurrent UTI UTI (urinary tract infection) Surgical History Surgical History H/O hemorrhoidectomy H/O partial resection of colon H/O removal of cyst From ovaries History of appendectomy Hx laparoscopic cholecystectomy Hx of cataract removal with insertion of prosthetic lens Hx of tonsillectomy Family History Family History Sibling Family history of lung cancer Family history of emphysema Nervous breakdown Father Family history of heart disease in male family member before age 55 Mother Family history of heart disease in male family member before age 55 Other Hypertension Social History Social History Smoking status: Never smoker Alcohol intake: current Drinks per week: 2 Substance use: never Gender identity (if verbalized by the patient): Female Spiritual care concerns: No Agree to blood products: Yes Exam Narrative: APPEARANCE: Well appearing, no pain in distress, well-nourished. Head: normocephalic and atraumatic. EYES: Scleral icterus. PERRLA/EOMI NOSE: No nasal drainage EARS: External ear normal in appearance THROAT: Oropharynx
--- NOTE | 2022-02-22 11:55 | PC.NURSE ---
pt to cat scan
[2022-02-22 12:55] LABS: Basophils Absolute Auto 0.1 K/mm3 (0.0-0.1); Basophils Percent Auto 0.7 % (0.2-1.2); Eosinophils Absolute Auto 0.1 K/mm3 (0-0.3); Eosinophils Percent Auto 1.3 % (0-4.4); Hematocrit 33.4 % (37.0-47.0); Hemoglobin 11.3 g/dL (12.0-15.0); Immature Granulocyte Absolute 0.04 K/mm3 (0.00-0.031); Immature Granulocyte Percent A 0.5 % (0-0.5); Immature Platelet Fraction Pct 17.5 % (0.9-11.2); Lymphocytes Absolute Auto 0.66 K/mm3 (0.9-3.2); Lymphocytes Percent Auto 8.6 % (18.3-44.2); Mean Corpuscular HGB Conc 33.8 g/dl (32-36); Mean Corpuscular Hemoglobin 30.9 pg (26-34); Mean Corpuscular Volume 91.3 fl (80-100); Mean Platelet Volume 12.9 fl (7.4-10.4); Monocytes Absolute Auto 0.6 K/mm3 (0.1-0.6); Monocytes Percent Auto 7.4 % (2.6-8.5); Neutrophils Absolute Auto 6.3 K/mm3 (1.3-6.7); Neutrophils Percent Auto 81.5 % (45.5-73.1); Platelet Count Result 223 k/mm3 (150-375); Red Blood Count 3.66 M/mm3 (4.2-5.4); Red Cell Distribution Width 20.2 % (11.5-14.5); White Blood Count 7.7 K/mm3 (4.5-10.0)
[2022-02-22 12:58] LABS: INR 1.4; Prothrombin Time 16.7 Seconds (11.1-14.7)
[2022-02-22 13:01] LABS: Add Urine Microscopic? YES; Appearance Urine Cloudy (Clear); Bilirubin Urine 3+ (Negative); Blood Urine 1+ (Negative); Color Urine Brown (Yellow); Glucose Urine UA Trace mg/dL (Negative); Ketones Urine Negative (Negative); Leukocyte Esterase Ur Negative LEU/UL (Negative); Nitrate Urine Negative (Negative); Protein Urine 1+ mg/dL (Negative)
[2022-02-22 13:05] LABS: Alanine Aminotransferase 143 U/L (6-35); Albumin Level 3.8 g/dL (3.5-5.1); Alkaline Phosphatase 402 U/L (38-126); Anion Gap 10 mmol/L (8-16); Aspartate Amino Transferase 105 U/L (14-36); Bilirubin Direct 12.2 mg/dL (0-0.3); Bilirubin Indirect 2.4 mg/dL (0-1.1); Bilirubin,Total 19.7 mg/dL (0.2-1.3); Blood Urea Nitrogen 14 mg/dL (7-17); Calcium 9.1 mg/dL (8.4-10.2); Carbon Dioxide 21 mmol/L (22-30); Chloride 108 mmol/L (98-107); Estimated CRCL calculation 48 ml/min; Estimated Glomerular Filt Rate > 60; Glucose 109 mg/dL (65-110); Potassium 4.2 mmol/L (3.4-5.0); Sodium 139 mmol/L (137-145)
[2022-02-22 13:05] LABS: Mucus Urine Few /lpf; Squamous Epithelial Cell Urine Moderate /hpf (Few)
[2022-02-22 13:32] LABS: Hepatitis B Surface Antigen Negative (Negative)
[2022-02-22 13:38] LABS: HAV RESULT Negative (Negative)
[2022-02-22 13:50] LABS: Hepatitis B Surface Anti Res Negative; Hepatitis C Virus Antibody Negative (Negative)
[2022-02-22 14:37] LABS: Lipase 1116 U/L (23-300)
[2022-02-22] MEDS: levoFLOXacin 500 MG/D5W 100 ML 500 MG/100 ML BAG 100 MG IVPB (14:45)
[2022-02-22] MEDS: SODIUM CHLORIDE 0.9% IV 1,000 ML 999 ML IV CONT (15:27)
--- NOTE | 2022-02-22 17:59 | ED.GENADULT ---
HPI - General Adult General Chief complaint: Abdominal Pain Stated complaint: jaundiced/discolored urine Time Seen by Provider: 02/22/22 11:37 Related Data Home Medications Medication Instructions Recorded Confirmed psyllium husk 0.4 gram capsule 0.4 gm PO DAILY 09/20/19 12/24/19 (Fiber (psyllium husk)) apixaban 5 mg tablet (Eliquis) 5 mg PO BID 06/02/21 diltiazem HCl 120 mg 120 mg PO DAILY 06/02/21 capsule,extended release 24 hr furosemide 20 mg tablet 20 mg PO QAM 06/02/21 nitroglycerin 0.4 mg sublingual 0.4 mg sublingual Q5M PRN 06/02/21 tablet Allergies Allergy/AdvReac Type Severity Reaction Status Date / Time No Known Allergies Allergy Unknown Verified 02/22/22 09:44 [facility] Past Medical History Medical History Afib Anal cancer Arthritis Bronchitis Cataract Removed Chronic tension-type headache, not intractable Colostomy in place Constipation Depression 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 GI bleed Glaucoma Gout Heartburn Hemorrhoids Hyperlipidemia Kidney infection Lung cancer right Measles Osteoarthritis Parkinsons disease Pneumonia Rectal polyp Recurrent UTI UTI (urinary tract infection) Surgical History Surgical History H/O hemorrhoidectomy H/O partial resection of colon H/O removal of cyst From ovaries History of appendectomy Hx laparoscopic cholecystectomy Hx of cataract removal with insertion of prosthetic lens Hx of tonsillectomy Family History Family History Sibling Family history of lung cancer Family history of emphysema Nervous breakdown Father Family history of heart disease in male family member before age 55 Mother Family history of heart disease in male family member before age 55 Other Hypertension Social History Social History Smoking status: Never smoker Alcohol intake: current Drinks per week: 2 Substance use: never Gender identity (if verbalized by the patient): Female Spiritual care concerns: No Agree to blood products: Yes Course Vital Signs Vital signs: Vital Signs Temperature 98.1 F 02/22/22 11:21 Pulse Rate 112 H 02/22/22 11:21 Respiratory Rate 16 02/22/22 11:21 Blood Pressure 140/69 02/22/22 11:21 Pulse Oximetry 99 02/22/22 11:21 Oxygen Delivery Room Air 02/22/22 11:21 Temperature 98.0 F 02/22/22 11:35 Pulse Rate 103 H 02/22/22 11:35 Respiratory Rate 20 02/22/22 11:35 Blood Pressure 140/77 02/22/22 11:35 Pulse Oximetry 97 02/22/22 11:35 Oxygen Delivery Room Air 02/22/22 11:35 Medical Decision Making Vital Signs Vital Signs: Vital Signs Temperature 98.1 F 02/22/22 11:21 Pulse Rate 112 H 02/22/22 11:21 Respiratory Rate 16 02/22/22 11:21 Blood Pressure 140/69 02/22/22 11:21 Pulse Oximetry 99 02/22/22 11:21 Oxygen Delivery Room Air 02/22/22 11:21 Temperature 98.0 F 02/22/22 11:35 Pulse Rate 103 H 02/22/22 11:35 Respiratory Rate 20 02/22/22 11:35 Blood Pressure 140/77 02/22/22 11:35 Pulse Oximetry 97 02/22/22 11:35 Oxygen Delivery Room Air 02/22/22 11:35 Lab Data Result diagrams: 02/22/22 12:37 02/22/22 12:37 Labs: Lab Results 02/22/22 02/22/22 02/22/22 Range/Units 12:37 12:37 12:37 WBC 7.7 (4.5-10.0) K/mm3 RBC 3.66 L (4.2-5.4) M/mm3 Hgb 11.3 L (12.0-15.0) g/dL Hct 33.4 L (37.0-47.0) % MCV 91.3 (80-100) fl MCH 30.9 (26-34) pg MCHC 33.8 (32-36) g/dl RDW 20.2 H (11.5-14.5) % Plt Count 223 (150-375) k/mm3 MPV 12.9 H (7.4-10.4) fl Immature Gran % (Auto) 0.5 (0-0.5) % Neut % (Auto) 81.5 H (45.5-73.1) % Lymph % (Auto) 8.6 L (18.3-44.2) % [place] % (Auto) 7.4 (2.6-8.5) % Eos % (Auto) 1.3 (
[2022-02-22 18:57] LABS: SARS-CoV-2 RNA PCR Negative
--- NOTE | 2022-02-22 19:00 | PC.NURSE ---
ASSUMED CARE OF PT. AT THIS TIME. REPORT FROM JUAN ECHEVERRIA
--- NOTE | 2022-02-22 19:23 | PC.NURSE ---
US talked with [facility] triage center states they are at max capacity and pt. will not have a bed tonight. Follow up in the AM for placement.
[2022-02-23] VITALS (37 sets, daily range): BP systolic 102–148; BP diastolic 64–94; PULSE 74–124; RESP 17–28; TEMP 36.7; O2SAT 94–99
--- NOTE | 2022-02-23 02:21 | PC.NURSE ---
[facility] transfer center called for update on pt. status. states there are no beds available at this time.
[2022-02-23] MEDS: METOPROLOL SUCCINATE EXT REL 25 MG TABCR PO (14:15)
--- NOTE | 2022-02-23 15:06 | PC.NURSE ---
called [facility] transfer center. pt still on the waiting list. they state they may have a bed later tonight or early tomorrow morning.
--- NOTE | 2022-02-23 16:37 | PC.NURSE ---
ordered pt. heart healthy dinner tray.
[2022-02-23] MEDS: SODIUM CHLORIDE 0.9% IV 1,000 ML 150 ML IV CONT (17:10)
--- NOTE | 2022-02-23 17:23 | ECG_ITS ---
Measurements Intervals [place] Rate: 107 P: [place]: 0 QRS: -33 QRSD: 132 T: 30 QT: 307 QTc: 411 Interpretive Statements ATRIAL FIBRILLATION WITH RAPID VENTRICULAR RESPONSE MARKED LEFT AXIS DEVIATION [QRS AXIS < -30] RIGHT BUNDLE BRANCH BLOCK [120+ ms QRS DURATION, UPRIGHT V1, 40+ ms S IN I/aVL/V4/V5/V6] COMPARED TO ECG 11/29/2019 12:56:38 ATRIAL FIBRILLATION NOW PRESENT LEFT-AXIS DEVIATION NOW PRESENT RIGHT BUNDLE-BRANCH BLOCK NOW PRESENT Electronically Signed On 02-24-2022 7:37:33 CDT by Vern Merritt MD
[2022-02-24] VITALS (13 sets, daily range): BP systolic 124–144; BP diastolic 65–94; PULSE 82–122; RESP 16–26; TEMP 36.5–36.9; O2SAT 95–100; BMI 26.6
--- NOTE | 2022-02-24 02:45 | PC.NURSE ---
Spoke with Alexandra from [facility] transfer center, still no beds available at this time. Will call back when a bed is available.
[2022-02-24 07:40] LABS: Basophils Percent Auto 0.7 % (0.2-1.2); Eosinophils Absolute Auto 0.2 K/mm3 (0-0.3); Eosinophils Percent Auto 3.5 % (0-4.4); Hematocrit 32.9 % (37.0-47.0); Hemoglobin 11.5 g/dL (12.0-15.0); Immature Granulocyte Absolute 0.04 K/mm3 (0.00-0.031); Immature Granulocyte Percent A 0.7 % (0-0.5); Lymphocytes Absolute Auto 0.61 K/mm3 (0.9-3.2); Lymphocytes Percent Auto 10.1 % (18.3-44.2); Mean Corpuscular Hemoglobin 31.3 pg (26-34); Mean Corpuscular Volume 89.6 fl (80-100); Mean Platelet Volume 12.8 fl (7.4-10.4); Monocytes Absolute Auto 0.5 K/mm3 (0.1-0.6); Monocytes Percent Auto 8.4 % (2.6-8.5); Neutrophils Absolute Auto 4.6 K/mm3 (1.3-6.7); Neutrophils Percent Auto 76.6 % (45.5-73.1); Platelet Count Result 235 k/mm3 (150-375); Red Blood Count 3.67 M/mm3 (4.2-5.4); Red Cell Distribution Width 21.3 % (11.5-14.5)
[2022-02-24 07:44] LABS: Ammonia < 9 umol/L (9-30)
--- NOTE | 2022-02-24 07:44 | PC.NURSE ---
[facility] over capacity no bed at current time pt remains on waiting list
[2022-02-24 07:50] LABS: INR 1.2; Partial Thromboplastin Time 30.7 SECONDS (22.3-36.8); Prothrombin Time 15.2 Seconds (11.1-14.7)
[2022-02-24 07:52] LABS: Alanine Aminotransferase 115 U/L (6-35); Albumin Level 3.2 g/dL (3.5-5.1); Alkaline Phosphatase 367 U/L (38-126); Anion Gap 5 mmol/L (8-16); Aspartate Amino Transferase 94 U/L (14-36); Bilirubin,Total 19.2 mg/dL (0.2-1.3); Blood Urea Nitrogen 12 mg/dL (7-17); Calcium 8.7 mg/dL (8.4-10.2); Carbon Dioxide 24 mmol/L (22-30); Chloride 109 mmol/L (98-107); Estimated CRCL calculation 48 ml/min; Estimated Glomerular Filt Rate > 60; Glucose 126 mg/dL (65-110); Potassium 3.7 mmol/L (3.4-5.0); Sodium 138 mmol/L (137-145)
[2022-02-24 08:01] LABS: Lipase 446 U/L (23-300)
[2022-02-24] MEDS: METOPROLOL SUCCINATE EXT REL 25 MG TABCR PO (09:08)
--- NOTE | 2022-02-24 11:25 | ADMGEN ---
This patient, Xiomara Ybarra, was admitted to [facility] Room 312-01. Patient/family oriented to hospital policies and general routines including ID bracelet, bed and alarms, visiting hours, pain management, procedures, bathroom and other care routines, personal items, smoking policy, room service/diet, and visiting hours. Information on how to activate the Rapid Response Team has been discussed. Patient/Family are encouraged to report perceived risks to care and to ask questions if they do not understand what they are told or what they should do.
[2022-02-24 11:52] LABS: Hepatitis B Core Ab Total Nonreactive (Nonreactive)
--- NOTE | 2022-02-24 11:53 | PM.IMHP ---
H&P: HPI History of Present Illness Date/Time: 02/24/22 11:53 Chief Complaint: Jaundice Narrative: Patient is an 86-year-old female with quite extensive history of AFib, arthritis, bronchitis, hyperlipidemia, lung cancer, and UTI who presented to the ED from her primary care physician for evaluation of jaundice, dark-colored urine and itching. Patient stated that she has noticed a yellow discoloration to his skin is clear for the past week or so and it has increased in last 2 days. She also stated that she has been very itchy all over her body and that her urine has been dark and thick for the last 2 days as well. Patient stated that she went out of town with a free friends on a road trip and when she was coming back she started to notice that she was spitting up yellow phlegm but had stopped went away. Patient also noticed that her stool has changed and was lot more runny more like diarrhea and pin inserter regulator in color which was not like her as well. She also stated that she was unable to eat a lot due to nausea however she would eat something does she would get lightheaded and dizzy and then she started to get very itchy. Patient did call her primary care provider who did get her an appointment and stated that the patient needed to go to the ED after evaluating her urine and her skin tone. Patient does have quite a bit of a history of cancer. 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 Silverman at [facility]. Her last radiation treatment was last November. Is also stated the patient has had issues of pleural effusions in the past however never had the drain. She has been having some nausea however no abdominal pain. Patient stated that she must be feeling a little better due to the fact that she can hold and tolerate food. Abdominal CT did show large abdominal wall hernia of the transverse colon however no obstruction. It also shows a moderate right pleural effusion and bilateral lower lobe infiltrates. Upon arrival patient was noted to have a total bilirubin of 19.7, direct bilirubin of 12.2, and indirect bilirubin of 2.4. Liver enzymes were 105/143, alk-phos 402. Lipase was elevated at 1116. Patient was started on IV fluids and was given a few boluses. Urine did look to be dark however urine culture did not grow anything. Liver enzymes are trending down currently 94/115 without fossa being 367. Total bilirubin is 19.2 and direct bilirubin is 12.0 today. Lipase is also trending down at 446. Hepatitis panel was negative. Right upper quadrant ultrasound has been ordered and is pending. GI has agreed to consult at this time. Currently the patient is awaiting transfer to [facility]. Right upper quadrant ultrasound did show a mass in the pancreas had along with a severely dilated hepatic duct about 18 mm. MRCP has been ordered with and without contrast. Will consult Oncology for further recommendations and evaluation. 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
[2022-02-24 12:23] LABS: Creatine Kinase 33 U/L (30-135)
--- NOTE | 2022-02-24 15:03 | WPDGICN ---
Assessment and Plan Assessment and plan (1) Obstructive jaundice: Code(s): K83.1 - Obstruction of bile duct Status: Acute Assessment and Plan: Patient with obstructive jaundice. Suspicious for cancer because it is painless. She has a previous rectal cancer with metastases to lung raising the possibility metastases to the portal area. Ultrasound suggested pancreatic mass. Tumor markers will be obtained. Patient will require ERCP for stenting. Ideally this should be performed with endoscopic ultrasound and biopsy of the pancreatic mass and expanding biliary stent which can be obtained in [place]. Understand patient is awaiting transfer to [facility]. If this is delayed as has already begun to occur through waiting in the ER I will plan to proceed with ERCP however at our institution we are only able to place a temporary plastic stenting in the antrum broad-spectrum antibiotic coverage is advised this information is related to the hospitalist service. (2) Pancreatic mass: Code(s): K86.89 - Other specified diseases of pancreas Status: Acute Assessment and Plan: Initial CT scan was performed without contrast in unable to assess the biliary duct. Ultrasound today suggest patient has a large pancreatic mass. Radiologist suggests this may be a primary lesion. However I cannot exclude metastases given her known primary rectal cancer and metastases to the lung in the past. Oncology consult may be of some benefit. Tumor markers will a pain. (3) History of cholecystectomy: Code(s): Z90.49 - Acquired absence of other specified parts of digestive tract Status: Acute (4) History of rectal cancer: Code(s): Z85.048 - Personal history of other malignant neoplasm of rectum, rectosigmoid junction, and anus Status: Acute Assessment and Plan: CEA will be obtained. Patient apparently has metastases of rectal cancer to the lung although exact status of this is unclear chest x-ray does not see any obvious masses at initial evaluation. (5) Peristomal hernia: Code(s): K46.9 - Unspecified abdominal hernia without obstruction or gangrene Status: Acute Assessment and Plan: Patient has a large camila stomal hernia in the abdomen. Portions of the colon are noted to be within this period this should be observed initially. May be a problem with some investigations. GI Consult Note Consult date/time: 02/24/22 15:03 Reason for consult: Obstructive jaundice. HPI: Xiomara Ybarra is a 86 year old female Reports that she has had jaundice and malaise that began a week ago on Monday. She presented [facility] on Monday and noted to have markedly elevated bilirubin. CT scan without contrast was unremarkable raising the question of painless jaundice and tumor. Arrangements were made for her to be sent to [facility]. Patient apparently had no beds available for her at [facility] in after being observed in the ER for several days she now is admitted the hospital for further evaluation. Patient denies abdominal pain. She does have a past medical history of rectal carcinoma resected 2015. She currently functions with a colostomy that works very well. She has apparently had metastases to the lung for which she received radiation therapy. She has been followed by the [facility] in [facility]. She states she has been able to eat without any difficulties. Patient does report dark urine for the last week at least. Patient does have a past medical history of previous cholecystectomy. Review of Systems Review of Systems: Review of systems noncontributory. [facility] Past Medical History Medical History Afib Anal cancer Arthritis Bronchitis Cataract Removed Chronic tension-type headache, not intractable Colostomy in place Constipation Depression Francisca
[2022-02-24 20:21] LABS: Carcinoembryonic Antigen 1.8 ng/mL (0.0-3.0)
[2022-02-25] VITALS (21 sets, daily range): BP systolic 117–146; BP diastolic 51–96; PULSE 18–114; RESP 16–97; TEMP 35.6–37.3; O2SAT 97–100
[2022-02-25 06:17] LABS: Basophils Percent Auto 0.3 % (0.2-1.2); Eosinophils Absolute Auto 0.2 K/mm3 (0-0.3); Eosinophils Percent Auto 2.9 % (0-4.4); Hematocrit 30.9 % (37.0-47.0); Hemoglobin 10.5 g/dL (12.0-15.0); Immature Granulocyte Absolute 0.04 K/mm3 (0.00-0.031); Immature Granulocyte Percent A 0.7 % (0-0.5); Immature Platelet Fraction Pct 16.9 % (0.9-11.2); Lymphocytes Absolute Auto 0.78 K/mm3 (0.9-3.2); Lymphocytes Percent Auto 13.2 % (18.3-44.2); Mean Corpuscular Hemoglobin 30.8 pg (26-34); Mean Corpuscular Volume 90.6 fl (80-100); Mean Platelet Volume 13.6 fl (7.4-10.4); Monocytes Absolute Auto 0.5 K/mm3 (0.1-0.6); Monocytes Percent Auto 8.5 % (2.6-8.5); Neutrophils Absolute Auto 4.4 K/mm3 (1.3-6.7); Neutrophils Percent Auto 74.4 % (45.5-73.1); Platelet Count Result 231 k/mm3 (150-375); Red Blood Count 3.41 M/mm3 (4.2-5.4); Red Cell Distribution Width 21.3 % (11.5-14.5); White Blood Count 5.9 K/mm3 (4.5-10.0)
[2022-02-25 06:37] LABS: Alanine Aminotransferase 111 U/L (6-35); Albumin Level 3.3 g/dL (3.5-5.1); Alkaline Phosphatase 354 U/L (38-126); Anion Gap 7 mmol/L (8-16); Aspartate Amino Transferase 104 U/L (14-36); Bilirubin Direct 10.6 mg/dL (0-0.3); Bilirubin,Total 17.9 mg/dL (0.2-1.3); Blood Urea Nitrogen 11 mg/dL (7-17); Calcium 8.7 mg/dL (8.4-10.2); Carbon Dioxide 25 mmol/L (22-30); Chloride 108 mmol/L (98-107); Estimated CRCL calculation 54 ml/min; Estimated Glomerular Filt Rate > 60; Glucose 107 mg/dL (65-110); Lipase 492 U/L (23-300); Potassium 3.2 mmol/L (3.4-5.0); Sodium 140 mmol/L (137-145)
--- NOTE | 2022-02-25 07:22 | SUR.PREOP ---
Spoke with Dr. Laura at 0710 this morning regarding metal stents for the ERCP. I mentioned to Dr. Laura that we do have metal stents here and available if he would need them. I also offered to call the [employer] rep to see if she was available for support with using the stent. He said he would let me know.
[2022-02-25 08:48] LABS: Amylase 76 U/L (30-110); Cholesterol 314 mg/dL (0-200); Lactate Dehydrogenase 448 U/L (313-618); Triglycerides 270 mg/dL (<150)
[2022-02-25 08:53] LABS: INR 1.3; Prothrombin Time 15.8 Seconds (11.1-14.7)
--- NOTE | 2022-02-25 10:31 | WPDANESEPPF ---
Anes - Initial Pre Proc Eval Procedure: Operation Date: 02/25/22 14:00 Proposed Procedures p Endoscopic Retro Cholangiopancreatogram - Gucci Laura MD Date/Time: 02/25/22 10:31 Surgeon: Sri Tinajero MD Pre Op Diagnosis: Hyperbilirubinemia/liver disease Patient Data Age: 86 Gender: F Height: 1.6 m Weight: 68.2 kg Last Vital Signs Temp 36.7 C 02/25/22 06:00 Pulse 114 H 02/25/22 06:00 Resp 18 02/25/22 06:00 BP 117/84 02/25/22 06:00 Pulse Ox 97 02/25/22 06:00 O2 Del Method Room Air 02/24/22 20:00 Allergies Allergy/AdvReac Type Severity Reaction Status Date / Time No Known Allergies Allergy Unknown Verified 02/25/22 13:05 Home Medications Medication Instructions Recorded Confirmed Type psyllium husk 0.4 gram capsule 0.4 gm PO DAILY 09/20/19 02/24/22 History (Fiber (psyllium husk)) metoprolol succinate 25 mg 25 mg PO QAM 30 days #30 tabs 12/07/19 02/24/22 Rx tablet,extended release 24 hr (Toprol XL) albuterol sulfate 90 mcg/actuation 1 inh inhalation Q4H PRN shortness 06/02/21 02/24/22 Rx aerosol inhaler of breath or wheezing #8.5 grams apixaban 5 mg tablet (Eliquis) 5 mg PO BID 06/02/21 02/24/22 History diltiazem HCl 120 mg 120 mg PO DAILY 06/02/21 02/24/22 History capsule,extended release 24 hr furosemide 20 mg tablet 20 mg PO QAM 06/02/21 02/24/22 History nitroglycerin 0.4 mg sublingual 0.4 mg sublingual Q5M PRN Chest 06/02/21 02/24/22 History tablet Pain Laboratory Tests 02/22/22 02/24/22 02/24/22 12:37 07:28 16:25 WBC RBC Hgb Hct MCV MCH MCHC RDW Plt Count MPV Immature Gran % (Auto) Neut % (Auto) Lymph % (Auto) Cocke % (Auto) Eos % (Auto) Baso % (Auto) Lymph # (Auto) [place]ke # (Auto) Eos # (Auto) Baso # (Auto) Abs Immat Gran (auto) Absolute Neuts (auto) Absolute Nucleated RBC Nucleated RBC % % Immature Plt Fraction PT INR Sodium Potassium Chloride Carbon Dioxide Anion Gap BUN Creatinine Estim Creat Clear Calc Estimated GFR Glucose Calcium Total Bilirubin Direct Bilirubin AST ALT Alkaline Phosphatase Lactate Dehydrogenase Total Creatine Kinase 33 U/L U/L (30-135) Total Protein Albumin Triglycerides Cholesterol Amylase Lipase Adenosine Deaminase Carcinoembryonic Ag 1.8 ng/mL ng/mL (0.0-3.0) CA 19-9 Antigen Hep B Core Total Ab Nonreactive (Nonreactive) 02/24/22 02/25/22 02/25/22 16:25 05:31 05:31 WBC 5.9 K/mm3 K/mm3 (4.5-10.0) RBC 3.41 M/mm3 L M/mm3 (4.2-5.4) Hgb 10.5 g/dL L g/dL (12.0-15.0) Hct 30.9 % L % (37.0-47.0) MCV 90.6 fl fl (80-100) MCH 30.8 pg pg (26-34) MCHC 34.0 g/dl g/dl (32-36) RDW 21.3 % H % (11.5-14.5) Plt Count 231 k/mm3 k/mm3 (150-375) MPV 13.6 fl H fl (7.4-10.4) Immature Gran % (Auto) 0.7 % H % (0-0.5) Neut % (Auto) 74.4 % H % (45.5-73.1) Lymph % (Auto) 13.2 % L % (18.3-44.2) Cocke % (Auto) 8.5 % % (2.6-8.5) Eos % (Auto) 2.9 % % (0-4.4) Baso % (Auto) 0.3 % % (0.2-1.2) Lymph # (Auto) 0.78 K/mm3 L K/mm3 (0.9-3.2) Cocke # (Auto) 0.5 K/mm3 K/mm3 (0.1-0.6) Eos # (Auto) 0.2 K/mm3 K/mm3 (0-0.3) Baso # (Auto) 0.0 K/mm3 K/mm3 (0.
[2022-02-25] MEDS: METOPROLOL SUCCINATE EXT REL 25 MG TABCR PO (10:43)
[2022-02-25] MEDS: POTASSIUM CHLORIDE 20 MEQ TABLET 40 MEQ PO (10:45)
--- NOTE | 2022-02-25 11:00 | P.PNIM_ITS ---
Progress Note: A&P Assessment and Plan (1) Obstructive jaundice: Code(s): K83.1 - Obstruction of bile duct Status: Acute Assessment and Plan: * Probably related to pancreatic mass * Continue to trend bilirubin * Fluids as needed * Continue levaquin IV * Bilirubin trending down (2) Pancreatitis: Code(s): K85.90 - Acute pancreatitis without necrosis or infection, unspecified Status: Acute Assessment and Plan: * Lipase elevated upon arrival at 1116 * Currently at 492 * RUQ ultrasound shows a pancreatic mass * Probably related to the adenocarcinoma that is spreading through out her body * Continue to trend lipase * Continue diet (3) Adenocarcinoma: Code(s): C80.1 - Malignant (primary) neoplasm, unspecified Status: Acute Assessment and Plan: * 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 Silvreman at [facility] (4) Pancreatic mass: Code(s): K86.89 - Other specified diseases of pancreas Status: Acute Assessment and Plan: * See above (5) Afib: Qualifiers: Atrial fibrillation type: unspecified Qualified Code(s): I48.91 - Unspecified atrial fibrillation Code(s): I48.91 - Unspecified atrial fibrillation Status: Acute Assessment and Plan: * In chronic Afib * Continue metoprolol * Trend heart rate * Will hold Eliquis for now and switch to Lovenox since she might need a few procedures * Tele monitor (6) Transaminitis: Code(s): R74.01 - Elevation of levels of liver transaminase levels Status: Acute Assessment and Plan: * AST/ALT elevated 104/111, with Alk phos being 354 * Probably related to obstruction * Continue to trend * GI on board thank you for your help * RUQ ultrasound showed severely dilated bile duct of 18mm, and a mass in the pancreatic head * MRCP showed 2.9 cm mass in the head of the pancreas severe intra and extrahepatic biliary duct dilatation * Will need an endoscopic ultrasound and possible stent (7) Hyperbilirubinemia: Code(s): E80.6 - Other disorders of bilirubin metabolism Status: Acute Assessment and Plan: * Total bilirubin 17.9, Direct Bilirubin 10.6 * Related to obstruction * Secondary to why she is yellow * Continue to trend (8) Pleural effusion: Code(s): J90 - Pleural effusion, not elsewhere classified Status: Acute Assessment and Plan: * Right-sided moderate pleural effusion noted on x-ray * Thoracentesis ordered and diagnostics have been sent * Patient was able to get 300 mL drained off * Diagnostic testing pending (9) Secondary malignancy of right lung: Code(s): C78.01 - Secondary malignant neoplasm of right lung Status: Acute Assessment and Plan: * Probably the reason for the plural effusion Time Spent With Patient Time with patient: Greater than 35 minutes Subjective Date/time seen: 02/25/22 1100 Interval history: 02/25/221099 Patient stated that she is getting a lot weaker. She denies any chest pain or shortness of breath even though she does get short of breath with talking. She said she did sleep very well last night and they keep telli
--- NOTE | 2022-02-25 11:00 | PM.IMPN ---
Progress Note: A&P Assessment and Plan (1) Obstructive jaundice: Code(s): K83.1 - Obstruction of bile duct Status: Acute Assessment and Plan: Probably related to pancreatic mass Continue to trend bilirubin Fluids as needed Continue levaquin IV Bilirubin trending down (2) Pancreatitis: Code(s): K85.90 - Acute pancreatitis without necrosis or infection, unspecified Status: Acute Assessment and Plan: Lipase elevated upon arrival at 1116 Currently at 492 RUQ ultrasound shows a pancreatic mass Probably related to the adenocarcinoma that is spreading through out her body Continue to trend lipase Continue diet (3) Adenocarcinoma: Code(s): C80.1 - Malignant (primary) neoplasm, unspecified Status: Acute Assessment and Plan: 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 Silverman at [facility] (4) Pancreatic mass: Code(s): K86.89 - Other specified diseases of pancreas Status: Acute Assessment and Plan: See above (5) Afib: Qualifiers: Atrial fibrillation type: unspecified Qualified Code(s): I48.91 - Unspecified atrial fibrillation Code(s): I48.91 - Unspecified atrial fibrillation Status: Acute Assessment and Plan: In chronic Afib Continue metoprolol Trend heart rate Will hold Eliquis for now and switch to Lovenox since she might need a few procedures Tele monitor (6) Transaminitis: Code(s): R74.01 - Elevation of levels of liver transaminase levels Status: Acute Assessment and Plan: AST/ALT elevated 104/111, with Alk phos being 354 Probably related to obstruction Continue to trend GI on board thank you for your help RUQ ultrasound showed severely dilated bile duct of 18mm, and a mass in the pancreatic head MRCP showed 2.9 cm mass in the head of the pancreas severe intra and extrahepatic biliary duct dilatation Will need an endoscopic ultrasound and possible stent (7) Hyperbilirubinemia: Code(s): E80.6 - Other disorders of bilirubin metabolism Status: Acute Assessment and Plan: Total bilirubin 17.9, Direct Bilirubin 10.6 Related to obstruction Secondary to why she is yellow Continue to trend (8) Pleural effusion: Code(s): J90 - Pleural effusion, not elsewhere classified Status: Acute Assessment and Plan: Right-sided moderate pleural effusion noted on x-ray Thoracentesis ordered and diagnostics have been sent Patient was able to get 300 mL drained off Diagnostic testing pending (9) Secondary malignancy of right lung: Code(s): C78.01 - Secondary malignant neoplasm of right lung Status: Acute Assessment and Plan: Probably the reason for the plural effusion Time Spent With Patient Time with patient: Greater than 35 minutes Subjective Date/time seen: 02/25/221099 Interval history: 02/25/221099 Patient stated that she is getting a lot weaker. She denies any chest pain or shortness of breath even though she does get short of breath with talking. She said she did sleep very well last night and they keep telling her that her heart rate is really fast. She denies any pain at all. She is eating okay with a lower to eat she did state that when she does not eat her stool changes and light, watery. Her niece was in there and updates were given and questions were answered. Spoke with GI this morning who is adjusting the patient also have biliary involved as well. Patient will get a thoracentesis done today, and it doing well. Called [facility] about the patient adding hepatobiliary, however, they stated that they are aware and are continuing to receive updates. Not sure that she will get over there any time soon
[2022-02-25] MEDS: LACTATED RINGERS 1,000 ML 150 ML IV CONT (13:06)
[2022-02-25 14:13] LABS: Appearance Pleural Fluid Clear (Clear); Color Pleural Fluid Yellow (Colorless); Lymphocytes Pleural Fluid 71 %; Macrophages Pleural Fluid 22 %; Neutrophils Pleural Fluid 7 % (0-25); Pleural fluid source Pleural fluid
--- NOTE | 2022-02-25 14:51 | SUR.OPER ---
ERCP ATTEMPTED, UNSUCCESSFUL, EGD COMPLETED PER DR RUSS.
[2022-02-26] VITALS (13 sets, daily range): BP systolic 116–138; BP diastolic 58–92; PULSE 60–128; RESP 18–26; TEMP 35.6–36.7; O2SAT 95–100
[2022-02-26 06:08] LABS: Basophils Percent Auto 0.7 % (0.2-1.2); Eosinophils Absolute Auto 0.1 K/mm3 (0-0.3); Eosinophils Percent Auto 1.7 % (0-4.4); Hematocrit 32.4 % (37.0-47.0); Immature Granulocyte Absolute 0.06 K/mm3 (0.00-0.031); Immature Platelet Fraction Pct 17.3 % (0.9-11.2); Lymphocytes Absolute Auto 0.67 K/mm3 (0.9-3.2); Lymphocytes Percent Auto 11.1 % (18.3-44.2); Mean Corpuscular Hemoglobin 30.7 pg (26-34); Mean Corpuscular Volume 90.5 fl (80-100); Mean Platelet Volume 13.6 fl (7.4-10.4); Monocytes Absolute Auto 0.6 K/mm3 (0.1-0.6); Monocytes Percent Auto 9.8 % (2.6-8.5); Neutrophils Absolute Auto 4.6 K/mm3 (1.3-6.7); Neutrophils Percent Auto 75.7 % (45.5-73.1); Platelet Count Result 227 k/mm3 (150-375); Red Blood Count 3.58 M/mm3 (4.2-5.4)
[2022-02-26 06:14] LABS: Alanine Aminotransferase 112 U/L (6-35); Albumin Level 3.1 g/dL (3.5-5.1); Alkaline Phosphatase 328 U/L (38-126); Anion Gap 5 mmol/L (8-16); Aspartate Amino Transferase 104 U/L (14-36); Bilirubin,Total 17.7 mg/dL (0.2-1.3); Blood Urea Nitrogen 11 mg/dL (7-17); Calcium 8.7 mg/dL (8.4-10.2); Carbon Dioxide 25 mmol/L (22-30); Chloride 105 mmol/L (98-107); Estimated CRCL calculation 54 ml/min; Estimated Glomerular Filt Rate > 60; Glucose 97 mg/dL (65-110); Potassium 3.6 mmol/L (3.4-5.0); Sodium 135 mmol/L (137-145)
[2022-02-26] MEDS: ENOXAPARIN 40 MG/0.4 ML SYRINGE SUB-Q (08:11)
[2022-02-26] MEDS: METOPROLOL SUCCINATE EXT REL 25 MG TABCR PO (08:12)
[2022-02-26] MEDS: FUROSEMIDE 20 MG TABLET PO (08:12)
--- NOTE | 2022-02-26 11:00 | WPDGIPROGNO ---
Progress Note: A&P Assessment and Plan (1) Jaundice: Code(s): R17 - Unspecified jaundice Status: Acute Assessment and Plan: Patient with obstructive jaundice. Appears to be a resultant pancreatic mass. Unable to decompress mass by endoscopic means because of compression of the duodenum. Suggest referral to tertiary care center for attempted biliary drainage. Alternative to this would be placement of external biliary drain such as PTC under the direction Radiology Department. We will maintain patient on antibiotics in the interim. Consider our radiology service doing this as referral to tertiary care center appears delayed. We can advance diet had except that she will need to be kept NPO for any endoscopic treatment. (2) Pancreatic mass: Code(s): K86.89 - Other specified diseases of pancreas Status: Acute Assessment and Plan: Pancreatic mass by imaging is suspicious for primary lesion. We also may need to consider this to be metastases from her rectal cancer already known to be metastatic to the lung. (3) History of rectal cancer: Code(s): Z85.048 - Personal history of other malignant neoplasm of rectum, rectosigmoid junction, and anus Status: Acute (4) Secondary malignancy of right lung: Code(s): C78.01 - Secondary malignant neoplasm of right lung Status: Acute (5) Atrial fibrillation with RVR: Code(s): I48.91 - Unspecified atrial fibrillation Status: Acute (6) Peristomal hernia: Code(s): K46.9 - Unspecified abdominal hernia without obstruction or gangrene Status: Acute Subjective Date/time seen: 02/26/22 11:00 Patient alert this morning. Remains jaundice. No fever. Denies any significant abdominal pain. Review of Systems Review of Systems: Review of systems noncontributory. Exam Narrative: Physical exam reveals patient to be alert. Vital signs stable. HEENT exam reveals marked scleral icterus also skin icteric. Lungs are clear. Heart without murmur. Abdomen bowel sounds present soft nontender with no obvious organomegaly. Objective Data Vital Signs Vital Signs: Vital Signs - 24 hr 02/25/22 12:00 02/25/22 13:07 02/25/22 12:33 Temperature 97.0 F L Pulse Rate 111 H 78 112 H Respiratory Rate 20 17 Blood Pressure 139/74 146/94 H Pulse Oximetry 100 100 Oxygen Delivery Room Air 02/25/22 13:16 02/25/22 13:18 02/25/22 14:35 Temperature 98.6 F Pulse Rate 112 H 102 H 106 H Respiratory Rate 17 16 24 H Blood Pressure 146/96 H 141/94 H 120/71 Pulse Oximetry 100 98 99 Oxygen Delivery Room Air 02/25/22 14:45 02/25/22 14:55 02/25/22 15:19 Temperature 96.7 F L Pulse Rate 111 H 96 100 Respiratory Rate 27 H 22 H 18 Blood Pressure 125/73 131/81 121/66 Pulse Oximetry 99 100 98 Oxygen Delivery Room Air Room Air 02/25/22 15:37 02/25/22 16:45 02/25/22 16:00 Temperature 96.1 F L 97.0 F L Pulse Rate 95 18 L 94 Respiratory Rate 18 94 H Blood Pressure 133/64 131/51 L Pulse Oximetry 100 99 Oxygen Delivery 02/25/22 18:52 02/25/22 20:44 02/25/22 20:00 Temperature 97.3 F L 99.2 F Pulse Rate 20 L 113 H Respiratory Rate 97 H 20 Blood Pressure 133/80 127/92 H Pulse Oximetry 97 98 Oxygen Delivery Room Air 02/25/22 20:00 02/26/22 00:00 02/26/22 04:00 Temperature Pulse Rate 101 H 99 102 H Respiratory Rate Blood Pressure Pulse Oximetry Oxygen Delivery 02/26/22 05:53 02/26/22 08:12 02/26/22 08:00 Temperature 98.0 F Pulse Rate 103 H 128 H 119 H Respiratory Rate 20 Blood Pressure 138/78 Pulse Oximetry 98 Oxygen Delivery 02/26/22 08:00 Temperature Pulse Rate Respiratory Rate Blood Pressure Pulse Oximetry Oxygen Delivery Room Air Intake/Output Intake/Output: Intake & Output 02/23/22 02/24/22 02/25/22 02/26/22 23:59 23:59 23:59 23:59 Intake Total 1730 586 400 Output Total 950 800 Balance 4246 -364 400 Meds/Re
--- NOTE | 2022-02-26 11:30 | PM.IMPN ---
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 Silverman at [facility] [place] (4) Pancreatic mass: Code(s): K86.89 - Other specified diseases of pancreas Status: Acute Assessment and Plan: See above (5) Afib: Qualifiers: Atrial fibrillation type: unspecified Qualified Code(s): I48.91 - Unspecified atrial fibrillation Code(s): I48.91 - Unspecified atrial fibrillation Status: Acute Assessment and Plan: In chronic Afib Increase metoprolol to 50mg PO BID Trend heart rate Will hold Eliquis for now and switch to Lovenox since she might need a few procedures Tele monitor (6) Transaminitis: Code(s): R74.01 - Elevation of levels of liver transaminase levels Status: Acute Assessment and Plan: AST/ALT elevated 104/112, with Alk phos being 328 Probably related to obstruction Continue to trend GI on board thank you for your help RUQ ultrasound showed severely dilated bile duct of 18mm, and a mass in the pancreatic head MRCP showed 2.9 cm mass in the head of the pancreas severe intra and extrahepatic biliary duct dilatation Will need an endoscopic ultrasound and possible stent (7) Hyperbilirubinemia: Code(s): E80.6 - Other disorders of bilirubin metabolism Status: Acute Assessment and Plan: Total bilirubin 17.7, Direct Bilirubin 10.6 Related to obstruction Secondary to why she is yellow Continue to trend (8) Pleural effusion: Code(s): J90 - Pleural effusion, not elsewhere classified Status: Acute Assessment and Plan: Right-sided moderate pleural effusion noted on x-ray Thoracentesis ordered and diagnostics have been sent Patient was able to get 300 mL drained off Diagnostic testing pending (9) Secondary malignancy of right lung: Code(s): C78.01 - Secondary malignant neoplasm of right lung Status: Acute Assessment and Plan: Probably the reason for the plural effusion Time Spent With Patient Time with patient: Greater than 35 minutes Subjective Date/time seen: 02/26/22 11:30 Interval history: 02/26/22 1130 Patient is doing ok. She denies any complaints today. She is feeling ok. She was in fact stating that she feels back to herself. She denies any chest pain, shortness of breath, nausea. She is still having problems with her heart rate. Metoprolol increased. Continue to trend heart rate. 02/25/22 1100 Patient stated that she is getting a lot weaker. She denies any chest pain or shortness of breath even though she does get short of breath with talking. She said she did sleep very well last night and they keep telling her that her heart rate is really fast. She denies any pain at all. She is eating okay with a lower to eat she did state that when she does not eat her stool changes and light, watery. Her
--- NOTE | 2022-02-26 11:30 | P.PNIM_ITS ---
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 Silverman at [facility] (4) Pancreatic mass: Code(s): K86.89 - Other specified diseases of pancreas Status: Acute Assessment and Plan: * See above (5) Afib: Qualifiers: Atrial fibrillation type: unspecified Qualified Code(s): I48.91 - Unspecified atrial fibrillation Code(s): I48.91 - Unspecified atrial fibrillation Status: Acute Assessment and Plan: * In chronic Afib * Increase metoprolol to 50mg PO BID * Trend heart rate * Will hold Eliquis for now and switch to Lovenox since she might need a few procedures * Tele monitor (6) Transaminitis: Code(s): R74.01 - Elevation of levels of liver transaminase levels Status: Acute Assessment and Plan: * AST/ALT elevated 104/112, with Alk phos being 328 * Probably related to obstruction * Continue to trend * GI on board thank you for your help * RUQ ultrasound showed severely dilated bile duct of 18mm, and a mass in the pancreatic head * MRCP showed 2.9 cm mass in the head of the pancreas severe intra and extrahepatic biliary duct dilatation * Will need an endoscopic ultrasound and possible stent (7) Hyperbilirubinemia: Code(s): E80.6 - Other disorders of bilirubin metabolism Status: Acute Assessment and Plan: * Total bilirubin 17.7, Direct Bilirubin 10.6 * Related to obstruction * Secondary to why she is yellow * Continue to trend (8) Pleural effusion: Code(s): J90 - Pleural effusion, not elsewhere classified Status: Acute Assessment and Plan: * Right-sided moderate pleural effusion noted on x-ray * Thoracentesis ordered and diagnostics have been sent * Patient was able to get 300 mL drained off * Diagnostic testing pending (9) Secondary malignancy of right lung: Code(s): C78.01 - Secondary malignant neoplasm of right lung Status: Acute Assessment and Plan: * Probably the reason for the plural effusion Time Spent With Patient Time with patient: Greater than 35 minutes Subjective Date/time seen: 02/26/22 11:30 Interval history: 02/26/22 1130 Patient is doing ok. She denies any complaints today. She is feeling ok. She was in fact stating that she f
[2022-02-26] MEDS: METOPROLOL TARTRATE 25 MG TABLET PO (12:32)
[2022-02-26] MEDS: METOPROLOL TARTRATE 50 MG TAB PO (21:30)
[2022-02-27] VITALS (11 sets, daily range): BP systolic 105–110; BP diastolic 55–66; PULSE 79–116; RESP 16–18; TEMP 35.7–36.3; O2SAT 99–100
[2022-02-27 04:14] LABS: CA 19-9 40 U/mL (<34)
[2022-02-27 06:16] LABS: Basophils Absolute Auto 0.1 K/mm3 (0.0-0.1); Basophils Percent Auto 0.9 % (0.2-1.2); Eosinophils Absolute Auto 0.2 K/mm3 (0-0.3); Eosinophils Percent Auto 2.7 % (0-4.4); Hematocrit 32.9 % (37.0-47.0); Hemoglobin 11.4 g/dL (12.0-15.0); Immature Granulocyte Absolute 0.08 K/mm3 (0.00-0.031); Immature Granulocyte Percent A 1.4 % (0-0.5); Immature Platelet Fraction Pct 19.6 % (0.9-11.2); Lymphocytes Absolute Auto 0.74 K/mm3 (0.9-3.2); Lymphocytes Percent Auto 13.3 % (18.3-44.2); Mean Corpuscular HGB Conc 34.7 g/dl (32-36); Mean Corpuscular Hemoglobin 31.1 pg (26-34); Mean Corpuscular Volume 89.6 fl (80-100); Mean Platelet Volume 13.8 fl (7.4-10.4); Monocytes Absolute Auto 0.6 K/mm3 (0.1-0.6); Monocytes Percent Auto 11.3 % (2.6-8.5); Neutrophils Absolute Auto 3.9 K/mm3 (1.3-6.7); Neutrophils Percent Auto 70.4 % (45.5-73.1); Platelet Count Result 222 k/mm3 (150-375); Red Blood Count 3.67 M/mm3 (4.2-5.4); Red Cell Distribution Width 22.4 % (11.5-14.5); White Blood Count 5.6 K/mm3 (4.5-10.0)
[2022-02-27 06:42] LABS: Alanine Aminotransferase 130 U/L (6-35); Albumin Level 3.3 g/dL (3.5-5.1); Alkaline Phosphatase 364 U/L (38-126); Anion Gap 5 mmol/L (8-16); Aspartate Amino Transferase 138 U/L (14-36); Bilirubin Direct 9.3 mg/dL (0-0.3); Bilirubin,Total 17.3 mg/dL (0.2-1.3); Blood Urea Nitrogen 10 mg/dL (7-17); Calcium 8.7 mg/dL (8.4-10.2); Carbon Dioxide 30 mmol/L (22-30); Chloride 103 mmol/L (98-107); Estimated CRCL calculation 54 ml/min; Estimated Glomerular Filt Rate > 60; Glucose 113 mg/dL (65-110); Lipase 274 U/L (23-300); Magnesium 1.8 mg/dL (1.6-2.3); Potassium 3.8 mmol/L (3.4-5.0); Sodium 138 mmol/L (137-145)
[2022-02-27 06:48] LABS: Hypochromasia 3+ (NORMAL); Platelet Estimate Adequate (Adequate); Target Cells 3+ (NORMAL)
[2022-02-27] MEDS: ENOXAPARIN 40 MG/0.4 ML SYRINGE SUB-Q (09:08)
[2022-02-27] MEDS: METOPROLOL TARTRATE 50 MG TAB PO ×2 (09:08→20:47)
[2022-02-27] MEDS: FUROSEMIDE 20 MG TABLET PO (09:08)
--- NOTE | 2022-02-27 09:15 | PM.IMPN ---
Progress Note: A&P Assessment and Plan (1) Obstructive jaundice: Code(s): K83.1 - Obstruction of bile duct Status: Acute Assessment and Plan: Probably related to pancreatic mass Continue to trend bilirubin Fluids as needed Continue levaquin IV Bilirubin trending down direct is 9.3, indirect is 17.3 Our IR department does not do PTC drain Still awaiting bed placement at [facility] (2) Pancreatitis: Code(s): K85.90 - Acute pancreatitis without necrosis or infection, unspecified Status: Acute Assessment and Plan: Lipase elevated upon arrival at 1116 Lipase at 274 today RUQ ultrasound shows a pancreatic mass 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 Silverman at [facility] Will need to follow up with him upon DC (4) Pancreatic mass: Code(s): K86.89 - Other specified diseases of pancreas Status: Acute Assessment and Plan: See above (5) Afib: Qualifiers: Atrial fibrillation type: unspecified Qualified Code(s): I48.91 - Unspecified atrial fibrillation Code(s): I48.91 - Unspecified atrial fibrillation Status: Acute Assessment and Plan: In chronic Afib Increase metoprolol to 50mg PO BID Seems to be better controlled Trend heart rate Will hold Eliquis for now and switch to Lovenox since she might need a few procedures Tele monitor (6) Transaminitis: Code(s): R74.01 - Elevation of levels of liver transaminase levels Status: Acute Assessment and Plan: AST/ALT elevated 138/130, with Alk phos being 364 Probably related to obstruction Continue to trend GI on board thank you for your help RUQ ultrasound showed severely dilated bile duct of 18mm, and a mass in the pancreatic head MRCP showed 2.9 cm mass in the head of the pancreas severe intra and extrahepatic biliary duct dilatation Will need an endoscopic ultrasound and possible stent (7) Hyperbilirubinemia: Code(s): E80.6 - Other disorders of bilirubin metabolism Status: Acute Assessment and Plan: Total bilirubin 17.3, Direct Bilirubin 9.3 Related to obstruction Secondary to why she is yellow Continue to trend (8) Pleural effusion: Code(s): J90 - Pleural effusion, not elsewhere classified Status: Acute Assessment and Plan: Right-sided moderate pleural effusion noted on x-ray Thoracentesis ordered and diagnostics have been sent Patient was able to get 300 mL drained off Diagnostic testing pending (9) Secondary malignancy of right lung: Code(s): 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 She did state that she feels like she has had a little bit more yellow especially in her eyes. She also stated that she went to the bathroom and she was straining to urinate because she did not want a call for help as much. When she did that she stated that she had a pain in her right side that resolved after she stops draining. She stated that she was not really concerned about it and she does want to make sure that I knew about it. She denies any chest pain, shortness of breath, nausea, vomiting, diarrhea, constipation, weakness or fatigue. She is wanting her ostomy changed which has b
--- NOTE | 2022-02-27 09:15 | P.PNIM_ITS ---
Progress Note: A&P Assessment and Plan (1) Obstructive jaundice: Code(s): K83.1 - Obstruction of bile duct Status: Acute Assessment and Plan: * Probably related to pancreatic mass * Continue to trend bilirubin * Fluids as needed * Continue levaquin IV * Bilirubin trending down direct is 9.3, indirect is 17.3 * Our IR department does not do PTC drain * Still awaiting bed placement at [facility] (2) Pancreatitis: Code(s): K85.90 - Acute pancreatitis without necrosis or infection, unspecified Status: Acute Assessment and Plan: * Lipase elevated upon arrival at 1116 * Lipase at 274 today * RUQ ultrasound shows a pancreatic mass * 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 Silverman at [facility] * Will need to follow up with him upon DC (4) Pancreatic mass: Code(s): K86.89 - Other specified diseases of pancreas Status: Acute Assessment and Plan: * See above (5) Afib: Qualifiers: Atrial fibrillation type: unspecified Qualified Code(s): I48.91 - Unspecified atrial fibrillation Code(s): I48.91 - Unspecified atrial fibrillation Status: Acute Assessment and Plan: * In chronic Afib * Increase metoprolol to 50mg PO BID * Seems to be better controlled * Trend heart rate * Will hold Eliquis for now and switch to Lovenox since she might need a few procedures * Tele monitor (6) Transaminitis: Code(s): R74.01 - Elevation of levels of liver transaminase levels Status: Acute Assessment and Plan: * AST/ALT elevated 138/130, with Alk phos being 364 * Probably related to obstruction * Continue to trend * GI on board thank you for your help * RUQ ultrasound showed severely dilated bile duct of 18mm, and a mass in the pancreatic head * MRCP showed 2.9 cm mass in the head of the pancreas severe intra and extrahepatic biliary duct dilatation * Will need an endoscopic ultrasound and possible stent (7) Hyperbilirubinemia: Code(s): E80.6 - Other disorders of bilirubin metabolism Status: Acute Assessment and Plan: * Total bilirubin 17.3, Direct Bilirubin 9.3 * Related to obstruction * Secondary to why she is yellow * Continue to trend (8) Pleural effusion: Code(s): J90 - Pleural effusion, not elsewhere classified Status: Acute Assessment and Plan: * Right-sided moderate pleural effusion noted on x-ray * Thoracentesis ordered and diagnostics have been sent * Patient was able to get 300 mL drained off * Diagnostic testing pending (9) Secondary malignancy of right lung: Code(s): C78.01 - Secondary malignant neoplasm of right lung Status: Acute Assessment and Plan: * Probably the reason for the plural effusion Time Spent With Patient Time with patient: Greater than 35 minutes Subjective Date/time seen: 02/27/22 09:15 Interval history: 02/27/2215 Lexx
--- NOTE | 2022-02-27 11:09 | WPDGIPROGNO ---
Progress Note: A&P Assessment and Plan (1) Pancreatic mass: Code(s): K86.89 - Other specified diseases of pancreas Status: Acute Assessment and Plan: Obstructive jaundice secondary to pancreatic mass. Pancreatic mass also obstruction duodenal sweep. Patient needs biliary decompression. At our institution ERCP was unable to be accomplished because of the impingement of the duodenal sweep. Additionally radiology does not perform external PTC drainage here. Patient needs referral to tertiary care center. She apparently has been waiting for for 5 days for transfer. Hopefully this can be accomplished tomorrow or within the next day or 2. In the interim patient will be maintained on broad-spectrum antibiotic coverage. Supportive care for now. Advance diet today but she will need to be NPO for possible procedures Monday or Monday. NPO after midnight. 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 Currently followed by [facility] in [place]. (3) Secondary malignancy of right lung: Code(s): C78.01 - Secondary malignant neoplasm of right lung Status: Acute (4) Atrial fibrillation with RVR: Code(s): I48.91 - Unspecified atrial fibrillation Status: Acute (5) Peristomal hernia: Code(s): K46.9 - Unspecified abdominal hernia without obstruction or gangrene Status: Acute Subjective Date/time seen: 02/27/22 11:09 patient is alert comfortable at rest. Remains quite icteric. Jaundiced in her eyes and skin is noted. She denies abdominal pain. Has had no fever. She is hungry. Review of Systems Review of Systems: Review of systems noncontributory. Exam Narrative: Physical exam reveals patient be alert. She is afebrile. Significant scleral in dermal icterus identified. Lungs are clear. Heart without murmur. Abdomen bowel sounds present soft nontender with no organomegaly. Colostomy functioning well. Objective Data Vital Signs Vital Signs: Vital Signs - 24 hr 02/26/22 12:06 02/26/22 12:32 02/26/22 13:50 Temperature 96.1 F L 97.2 F L Pulse Rate 107 H 120 H 101 H Respiratory Rate 18 26 H Blood Pressure 132/92 H 116/58 L Pulse Oximetry 100 99 Oxygen Delivery 02/26/22 12:00 02/26/22 16:00 02/26/22 21:11 Temperature 97 F L Pulse Rate 111 H 91 96 Respiratory Rate 18 Blood Pressure 121/75 Pulse Oximetry 95 Oxygen Delivery 02/26/22 21:30 02/26/22 20:00 02/27/22 00:00 Temperature Pulse Rate 60 104 H 80 Respiratory Rate Blood Pressure Pulse Oximetry Oxygen Delivery 02/27/22 04:00 02/27/22 05:03 02/27/22 09:08 Temperature 96.7 F L Pulse Rate 79 79 110 H Respiratory Rate 16 Blood Pressure 108/63 Pulse Oximetry 99 Oxygen Delivery 02/27/22 08:00 02/27/22 08:00 Temperature Pulse Rate 103 H Respiratory Rate Blood Pressure Pulse Oximetry Oxygen Delivery Room Air Intake/Output Intake/Output: Intake & Output 02/24/22 02/25/22 02/26/22 02/27/22 23:59 23:59 23:59 23:59 Intake Total 5443 581 8423 630 Output Total 950 1320 700 Balance 1730 -364 420 -70 Meds/Results Medications: Active Medications Generic Name Dose Route Start Last Admin Trade Name Freq PRN Reason Stop Dose Admin Albuterol 1 puff 02/24/22 13:42 Albuterol Sulfate (*Sp) Aerosol 1 Puff INHALATION Q4H PRN shortness of breath or wheezing Diltiazem HCl 120 mg 02/24/22 09:00 02/27/22 09:07 Diltiazem Hcl Cd 120 Mg Cap.Sa.24h PO 120 mg QAM ANDER Administration Enoxaparin Sodium 40 mg 02/25/22 09:00 02/27/22 09:08 Enoxaparin 40 Mg/0.4 Ml Syringe SUB-Q 40 mg DAILY ANDER Administration Furosemide 20 mg 02/25/22 09:00 02/27
[2022-02-28] VITALS (12 sets, daily range): BP systolic 108–118; BP diastolic 63–75; PULSE 71–107; RESP 16–18; TEMP 36.3–36.7; O2SAT 97–100
[2022-02-28 05:48] LABS: Basophils Absolute Auto 0.1 K/mm3 (0.0-0.1); Basophils Percent Auto 0.8 % (0.2-1.2); Eosinophils Absolute Auto 0.2 K/mm3 (0-0.3); Eosinophils Percent Auto 3.4 % (0-4.4); Hematocrit 32.1 % (37.0-47.0); Hemoglobin 10.8 g/dL (12.0-15.0); Immature Granulocyte Absolute 0.11 K/mm3 (0.00-0.031); Immature Granulocyte Percent A 1.8 % (0-0.5); Lymphocytes Absolute Auto 0.83 K/mm3 (0.9-3.2); Lymphocytes Percent Auto 13.3 % (18.3-44.2); Mean Corpuscular HGB Conc 33.6 g/dl (32-36); Mean Corpuscular Hemoglobin 30.9 pg (26-34); Monocytes Absolute Auto 0.7 K/mm3 (0.1-0.6); Monocytes Percent Auto 11.4 % (2.6-8.5); Neutrophils Absolute Auto 4.3 K/mm3 (1.3-6.7); Neutrophils Percent Auto 69.3 % (45.5-73.1); Platelet Count Result 227 k/mm3 (150-375); Red Blood Count 3.49 M/mm3 (4.2-5.4); Red Cell Distribution Width 22.4 % (11.5-14.5); White Blood Count 6.2 K/mm3 (4.5-10.0)
[2022-02-28 06:05] LABS: Alanine Aminotransferase 136 U/L (6-35); Albumin Level 3.2 g/dL (3.5-5.1); Alkaline Phosphatase 356 U/L (38-126); Anion Gap 2 mmol/L (8-16); Aspartate Amino Transferase 141 U/L (14-36); Bilirubin Direct 8.6 mg/dL (0-0.3); Bilirubin,Total 16.4 mg/dL (0.2-1.3); Blood Urea Nitrogen 11 mg/dL (7-17); Calcium 8.9 mg/dL (8.4-10.2); Carbon Dioxide 33 mmol/L (22-30); Chloride 101 mmol/L (98-107); Estimated CRCL calculation 47 ml/min; Estimated Glomerular Filt Rate > 60; Glucose 115 mg/dL (65-110); Lipase 354 U/L (23-300); Magnesium 1.8 mg/dL (1.6-2.3); Potassium 3.6 mmol/L (3.4-5.0); Sodium 136 mmol/L (137-145)
[2022-02-28] MEDS: METOPROLOL TARTRATE 50 MG TAB PO ×2 (08:18→20:58)
[2022-02-28] MEDS: ENOXAPARIN 40 MG/0.4 ML SYRINGE SUB-Q (08:18)
[2022-02-28] MEDS: FUROSEMIDE 20 MG TABLET PO (08:19)
--- NOTE | 2022-02-28 08:30 | P.PNIM_ITS ---
Progress Note: A&P Assessment and Plan (1) Obstructive jaundice: Code(s): K83.1 - Obstruction of bile duct Status: Acute Assessment and Plan: * Probably related to pancreatic mass * Continue to trend bilirubin * Fluids as needed * Continue levaquin IV * Bilirubin trending down direct is 8.6, indirect is 16.4 * Our IR department does not do PTC drain * Still awaiting bed placement at [facility] (2) Pancreatitis: Code(s): K85.90 - Acute pancreatitis without necrosis or infection, unspecified Status: Acute Assessment and Plan: * Lipase elevated upon arrival at 1116 * Lipase at 354 today * RUQ ultrasound shows a pancreatic mass * 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 Silverman at [facility] * Will need to follow up with him upon DC (4) Pancreatic mass: Code(s): K86.89 - Other specified diseases of pancreas Status: Acute Assessment and Plan: * See above (5) Afib: Qualifiers: Atrial fibrillation type: unspecified Qualified Code(s): I48.91 - Unspecified atrial fibrillation Code(s): I48.91 - Unspecified atrial fibrillation Status: Acute Assessment and Plan: * In chronic Afib * Increase metoprolol to 50mg PO BID * Seems to be better controlled * Trend heart rate * Will hold Eliquis for now and switch to Lovenox since she might need a few procedures * Tele monitor (6) Transaminitis: Code(s): R74.01 - Elevation of levels of liver transaminase levels Status: Acute Assessment and Plan: * AST/ALT elevated 141/136, with Alk phos being 356 * Probably related to obstruction * Continue to trend * GI on board thank you for your help * RUQ ultrasound showed severely dilated bile duct of 18mm, and a mass in the pancreatic head * MRCP showed 2.9 cm mass in the head of the pancreas severe intra and extrahepatic biliary duct dilatation * Will need an endoscopic ultrasound and possible stent (7) Hyperbilirubinemia: Code(s): E80.6 - Other disorders of bilirubin metabolism Status: Acute Assessment and Plan: * Total bilirubin 16.4, Direct Bilirubin 8.6 * Related to obstruction * Secondary to why she is yellow * Continue to trend (8) Pleural effusion: Code(s): J90 - Pleural effusion, not elsewhere classified Status: Acute Assessment and Plan: * Right-sided moderate pleural effusion noted on x-ray * Thoracentesis ordered and diagnostics have been sent * Patient was able to get 300 mL drained off * Diagnostic testing pending (9) Secondary malignancy of right lung: Code(s): 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
--- NOTE | 2022-02-28 08:30 | PM.IMPN ---
Progress Note: A&P Assessment and Plan (1) Obstructive jaundice: Code(s): K83.1 - Obstruction of bile duct Status: Acute Assessment and Plan: Probably related to pancreatic mass Continue to trend bilirubin Fluids as needed Continue levaquin IV Bilirubin trending down direct is 8.6, indirect is 16.4 Our IR department does not do PTC drain Still awaiting bed placement at [facility] (2) Pancreatitis: Code(s): K85.90 - Acute pancreatitis without necrosis or infection, unspecified Status: Acute Assessment and Plan: Lipase elevated upon arrival at 1116 Lipase at 354 today RUQ ultrasound shows a pancreatic mass 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 Silverman at [facility] Will need to follow up with him upon DC (4) Pancreatic mass: Code(s): K86.89 - Other specified diseases of pancreas Status: Acute Assessment and Plan: See above (5) Afib: Qualifiers: Atrial fibrillation type: unspecified Qualified Code(s): I48.91 - Unspecified atrial fibrillation Code(s): I48.91 - Unspecified atrial fibrillation Status: Acute Assessment and Plan: In chronic Afib Increase metoprolol to 50mg PO BID Seems to be better controlled Trend heart rate Will hold Eliquis for now and switch to Lovenox since she might need a few procedures Tele monitor (6) Transaminitis: Code(s): R74.01 - Elevation of levels of liver transaminase levels Status: Acute Assessment and Plan: AST/ALT elevated 141/136, with Alk phos being 356 Probably related to obstruction Continue to trend GI on board thank you for your help RUQ ultrasound showed severely dilated bile duct of 18mm, and a mass in the pancreatic head MRCP showed 2.9 cm mass in the head of the pancreas severe intra and extrahepatic biliary duct dilatation Will need an endoscopic ultrasound and possible stent (7) Hyperbilirubinemia: Code(s): E80.6 - Other disorders of bilirubin metabolism Status: Acute Assessment and Plan: Total bilirubin 16.4, Direct Bilirubin 8.6 Related to obstruction Secondary to why she is yellow Continue to trend (8) Pleural effusion: Code(s): J90 - Pleural effusion, not elsewhere classified Status: Acute Assessment and Plan: Right-sided moderate pleural effusion noted on x-ray Thoracentesis ordered and diagnostics have been sent Patient was able to get 300 mL drained off Diagnostic testing pending (9) Secondary malignancy of right lung: Code(s): 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 Will add melatonin Time Spent With Patient Time with patient: Greater than 35 minutes Subjective Date/time seen: 02/28/22829 Interval history: 02/28/22829 Patient was lying in bed today. She seems a little discouraged. She stated that she is very tired and weak and she is up every 2 hours to urinate. She denies any chest pain but she did say that she has been feeling her heart race a little bit but it does not ever last long. She also stated that she is tired of lying around and her mouth is just dry they keep taking her water away. She denies any
[2022-02-28 11:30] LABS: Appearance Urine Clear (Clear); Bilirubin Urine 2+ (Negative); Blood Urine Negative (Negative); Color Urine Yellow (Yellow); Glucose Urine UA Negative (Negative); Ketones Urine Negative (Negative); Leukocyte Esterase Ur Negative LEU/UL (Negative); Nitrate Urine Negative (Negative); Protein Urine Negative (Negative); Specific Grav Ur 1.015 (1.001-1.035); Urobilinogen Urine 0.2 mg/dL (<2.0)
[2022-02-28 11:50] LABS: Bacteria Urine Trace /hpf; RBC Urine 0-2 /hpf (0-2); Squamous Epithelial Cell Urine Rare /hpf (Few); WBC Urine 0-3 /hpf
[2022-02-28 11:56] LABS: Add Urine Microscopic? YES
[2022-02-28] MEDS: ONDANSETRON INJ 4 MG/2 ML VIAL IV PUSH (12:42)
--- NOTE | 2022-02-28 12:59 | WPDGIPROGNO ---
Progress Note: A&P Assessment and Plan (1) Jaundice: Code(s): R17 - Unspecified jaundice Status: Acute Assessment and Plan: Patient has marked icterus. Elevated bilirubin consistent with obstructive jaundice. Appears to be related to pancreatic mass. She has a pancreatic mass by imaging. 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 (2) Pancreatic mass: Code(s): K86.89 - Other specified diseases of pancreas Status: Acute Assessment and Plan: Patient with pancreatitis masses secondary obstructive jaundice. Mass appears to impinge upon the duodenum which may ERCP on successful at our institution. Unable to pace internal biliary stent. Radiology at our institution does not do external PTC stenting. Patient will need to be transferred to tertiary care center. She has been on a waiting list for [facility] for 1 week now. She has been followed for her rectal cancer with site min cancer in his to 2. Would recommend that we attempt to get her over 2 [facility] system for attempted biliary stenting. This is not fruitful she can have external biliary stenting done by PTC at that institution. I have discussed this with the hospitalist service who states they will try to make these arrangements today if at all feasible. CA 19-9 is only 40. Is possible this mass could be metastatic from rectal carcinoma (3) History of rectal cancer: Code(s): Z85.048 - Personal history of other malignant neoplasm of rectum, rectosigmoid junction, and anus Status: Acute Assessment and Plan: Status post colostomy. 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 Currently followed by Malia [facility]. (4) Secondary malignancy of right lung: Code(s): C78.01 - Secondary malignant neoplasm of right lung Status: Acute (5) Atrial fibrillation with RVR: Code(s): I48.91 - Unspecified atrial fibrillation Status: Acute (6) Peristomal hernia: Code(s): K46.9 - Unspecified abdominal hernia without obstruction or gangrene Status: Acute Subjective Date/time seen: 02/28/22 12:59 Patient alert comfortable at rest. States she is very weak. Kept NPO this morning hopefully so that she could be transferred to [facility]. No indication of her being transferred today. She denies a fever. Denies abdominal pain. Review of Systems Review of Systems: review of systems noncontributory. Exam Narrative: Physical exam reveals patient be markedly icteric both her eyes and skin. She denies abdominal pain. HEENT exam as stated is icteric. Lungs are clear. Heart without murmur. Abdomen bowel sounds present soft nontender left sided colostomy intact and functioning well. Objective Data Vital Signs Vital Signs: Vital Signs - 24 hr 02/27/22 14:00 02/27/22 16:00 02/27/22 20:47 Temperature 96.3 F L Pulse Rate 79 82 87 Respiratory Rate 18 Blood Pressure 105/55 L Pulse Oximetry 100 Oxygen Delivery 02/27/22 20:00 02/27/22 22:00 02/28/22 00:00 Temperature 97.3 F L Pulse Rate 102 H 88 93 Respiratory Rate 16 Blood Pressure 110/66 Pulse Oximetry 100 Oxygen Delivery 02/28/22 04:00 02/28/22 06:00 02/28/22 08:18 Temperature 97.5 F L Pulse Rate 89 71 107 H Respiratory Rate 18 Blood Pressure 118/75 Pulse Oximetry 99 Oxygen Delivery 02/28/22 08:00 02/28/22 08:00 02/28/22 12:00 Temperature Pulse Rate 86 84 Respiratory Rate Blood Pressure Pulse Oximetry Oxygen Delivery Room Air Intake/Output Intake/Output: Intake & Output 02/25/22 02/26/22 02/27/22 02/28/22 23:59 23:59 23:59 23:59 Intake Total 586 1740 1260 500 Output Total 950 1320 2400 400 Balance -364 420 -1140 100 Meds/Results Medications: Active Medications Generic Name Dose Route Start Last Admin Trade Name Freq PRN Reason Stop Dose Admin Albuterol 1 puff 02/24/22 13:42 Albuterol Sulfate (*Sp) Aerosol
[2022-03-01] VITALS (12 sets, daily range): BP systolic 106–122; BP diastolic 65–77; PULSE 80–110; RESP 16; TEMP 36–36.7; O2SAT 96–99
[2022-03-01 06:06] LABS: Alanine Aminotransferase 141 U/L (6-35); Albumin Level 3.2 g/dL (3.5-5.1); Alkaline Phosphatase 355 U/L (38-126); Anion Gap 4 mmol/L (8-16); Aspartate Amino Transferase 141 U/L (14-36); Bilirubin Direct 8.7 mg/dL (0-0.3); Bilirubin,Total 16.9 mg/dL (0.2-1.3); Blood Urea Nitrogen 13 mg/dL (7-17); Calcium 9.2 mg/dL (8.4-10.2); Carbon Dioxide 32 mmol/L (22-30); Chloride 98 mmol/L (98-107); Estimated CRCL calculation 41 ml/min; Estimated Glomerular Filt Rate > 60; Glucose 109 mg/dL (65-110); Lipase 382 U/L (23-300); Sodium 134 mmol/L (137-145)
[2022-03-01 06:20] LABS: Basophils Absolute Auto 0.1 K/mm3 (0.0-0.1); Basophils Percent Auto 0.8 % (0.2-1.2); Eosinophils Absolute Auto 0.2 K/mm3 (0-0.3); Eosinophils Percent Auto 2.8 % (0-4.4); Hematocrit 34.5 % (37.0-47.0); Hemoglobin 11.5 g/dL (12.0-15.0); Immature Granulocyte Absolute 0.11 K/mm3 (0.00-0.031); Immature Granulocyte Percent A 1.8 % (0-0.5); Lymphocytes Absolute Auto 0.73 K/mm3 (0.9-3.2); Lymphocytes Percent Auto 12.2 % (18.3-44.2); Mean Corpuscular HGB Conc 33.3 g/dl (32-36); Mean Platelet Volume 13.3 fl (7.4-10.4); Monocytes Absolute Auto 0.6 K/mm3 (0.1-0.6); Monocytes Percent Auto 10.7 % (2.6-8.5); Neutrophils Absolute Auto 4.3 K/mm3 (1.3-6.7); Neutrophils Percent Auto 71.7 % (45.5-73.1); Platelet Count Result 234 k/mm3 (150-375); Red Blood Count 3.71 M/mm3 (4.2-5.4); Red Cell Distribution Width 21.8 % (11.5-14.5)
[2022-03-01] MEDS: ENOXAPARIN 40 MG/0.4 ML SYRINGE SUB-Q (08:54)
[2022-03-01] MEDS: FUROSEMIDE 20 MG TABLET PO (08:54)
[2022-03-01] MEDS: METOPROLOL TARTRATE 50 MG TAB PO ×2 (08:55→20:58)
--- NOTE | 2022-03-01 10:30 | PM.IMPN ---
Progress Note: A&P Assessment and Plan (1) Obstructive jaundice: Code(s): K83.1 - Obstruction of bile duct Status: Acute Assessment and Plan: Probably related to pancreatic mass Continue to trend bilirubin Fluids as needed Continue levaquin IV Bilirubin trending down direct is 8.7, indirect is 16.9 Our IR department does not do PTC drain Still awaiting bed placement at [facility] (2) Pancreatitis: Code(s): K85.90 - Acute pancreatitis without necrosis or infection, unspecified Status: Acute Assessment and Plan: Lipase elevated upon arrival at 1116 Lipase at 352 today RUQ ultrasound shows a pancreatic mass 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 Silverman at [facility] Will need to follow up with him upon DC (4) Pancreatic mass: Code(s): K86.89 - Other specified diseases of pancreas Status: Acute Assessment and Plan: See above (5) Afib: Qualifiers: Atrial fibrillation type: unspecified Qualified Code(s): I48.91 - Unspecified atrial fibrillation Code(s): I48.91 - Unspecified atrial fibrillation Status: Acute Assessment and Plan: In chronic Afib Increase metoprolol to 50mg PO BID Seems to be better controlled Trend heart rate Will hold Eliquis for now and switch to Lovenox since she might need a few procedures Tele monitor (6) Transaminitis: Code(s): R74.01 - Elevation of levels of liver transaminase levels Status: Acute Assessment and Plan: AST/ALT elevated 141/141, with Alk phos being 355 Probably related to obstruction Continue to trend GI on board thank you for your help RUQ ultrasound showed severely dilated bile duct of 18mm, and a mass in the pancreatic head MRCP showed 2.9 cm mass in the head of the pancreas severe intra and extrahepatic biliary duct dilatation Will need an endoscopic ultrasound and possible stent Pt is currently on the list at [facility] (Dr. Boswell), [facility] (Dr. Verduzco), and [facility]. Still awaiting a bed. [facility] is fairly far behind, [facility] said on 02/28/22 that it will hopefully be in the next day or two. (7) Hyperbilirubinemia: Code(s): E80.6 - Other disorders of bilirubin metabolism Status: Acute Assessment and Plan: Total bilirubin 16.9, Direct Bilirubin 8.7 Related to obstruction Secondary to Jaundice Continue to trend (8) Pleural effusion: Code(s): J90 - Pleural effusion, not elsewhere classified Status: Acute Assessment and Plan: Right-sided moderate pleural effusion noted on x-ray Thoracentesis ordered and diagnostics have been sent Patient was able to get 300 mL drained off Diagnostic testing currently shows no growth will continue to follow (9) Secondary malignancy of right lung: Code(s): 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 Will add melatonin Time Spent With Patient Time with patient: Greater than 35 minutes Subjective Date/time seen: 03/01/22 1030 Interval history: 03/01/22 1030 Patient is very frustrated irritated today. She stated she would rather go home in go to the emergency room at a different hospital however explained her
--- NOTE | 2022-03-01 10:30 | P.PNIM_ITS ---
Progress Note: A&P Assessment and Plan (1) Obstructive jaundice: Code(s): K83.1 - Obstruction of bile duct Status: Acute Assessment and Plan: * Probably related to pancreatic mass * Continue to trend bilirubin * Fluids as needed * Continue levaquin IV * Bilirubin trending down direct is 8.7, indirect is 16.9 * Our IR department does not do PTC drain * Still awaiting bed placement at [facility] (2) Pancreatitis: Code(s): K85.90 - Acute pancreatitis without necrosis or infection, unspecified Status: Acute Assessment and Plan: * Lipase elevated upon arrival at 1116 * Lipase at 352 today * RUQ ultrasound shows a pancreatic mass * 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 Silverman at [facility] * Will need to follow up with him upon DC (4) Pancreatic mass: Code(s): K86.89 - Other specified diseases of pancreas Status: Acute Assessment and Plan: * See above (5) Afib: Qualifiers: Atrial fibrillation type: unspecified Qualified Code(s): I48.91 - Unspecified atrial fibrillation Code(s): I48.91 - Unspecified atrial fibrillation Status: Acute Assessment and Plan: * In chronic Afib * Increase metoprolol to 50mg PO BID * Seems to be better controlled * Trend heart rate * Will hold Eliquis for now and switch to Lovenox since she might need a few procedures * Tele monitor (6) Transaminitis: Code(s): R74.01 - Elevation of levels of liver transaminase levels Status: Acute Assessment and Plan: * AST/ALT elevated 141/141, with Alk phos being 355 * Probably related to obstruction * Continue to trend * GI on board thank you for your help * RUQ ultrasound showed severely dilated bile duct of 18mm, and a mass in the pancreatic head * MRCP showed 2.9 cm mass in the head of the pancreas severe intra and extrahepatic biliary duct dilatation * Will need an endoscopic ultrasound and possible stent Pt is currently on the list at [facility] (Dr. Boswell), [facility] (Dr. Verduzco), and [facility]. Still awaiting a bed. [facility] is fairly far behind, [facility] said on 02/28/22 that it will hopefully be in the next day or two. (7) Hyperbilirubinemia: Code(s): E80.6 - Other disorders of bilirubin metabolism Status: Acute Assessment and Plan: * Total bilirubin 16.9, Direct Bilirubin 8.7 * Related to obstruction * Secondary to Jaundice * Continue to trend (8) Pleural effusion: Code(s): J90 - Pleural effusion, not elsewhere classified Status: Acute Assessment and Plan: * Right-sided moderate pleural effusion noted on x-ray * Thoracentesis ordered and diagnostics have been sent * Patient was able to get 300 mL drained off * Diagnostic testing currently shows no growth will continue to follow (9) Secondary malignancy of right lung: Code(s): C78.01 - Secondary malignant neoplasm of right lung Status: Acute Assessment and Plan: * Pr
[2022-03-01 12:42] LABS: Glucose Pleural Fluid 106 mg/dL; LDH Pleural Fluid 95 U/L; Total Protein Pleural Fluid <3.0 g/dL
[2022-03-01 13:34] LABS: Albumin Pleural Fluid 1.3 g/dL
[2022-03-02] VITALS (11 sets, daily range): BP systolic 101–127; BP diastolic 63–77; PULSE 74–112; RESP 18–24; TEMP 36.4–36.6; O2SAT 96–99
[2022-03-02 05:59] LABS: Basophils Absolute Auto 0.1 K/mm3 (0.0-0.1); Basophils Percent Auto 1.1 % (0.2-1.2); Eosinophils Absolute Auto 0.2 K/mm3 (0-0.3); Eosinophils Percent Auto 2.5 % (0-4.4); Hematocrit 32.6 % (37.0-47.0); Hemoglobin 11.1 g/dL (12.0-15.0); Immature Granulocyte Absolute 0.17 K/mm3 (0.00-0.031); Immature Granulocyte Percent A 2.8 % (0-0.5); Lymphocytes Absolute Auto 0.71 K/mm3 (0.9-3.2); Lymphocytes Percent Auto 11.6 % (18.3-44.2); Mean Corpuscular Hemoglobin 31.2 pg (26-34); Mean Corpuscular Volume 91.6 fl (80-100); Mean Platelet Volume 13.2 fl (7.4-10.4); Monocytes Absolute Auto 0.7 K/mm3 (0.1-0.6); Neutrophils Absolute Auto 4.3 K/mm3 (1.3-6.7); Platelet Count Result 185 k/mm3 (150-375); Red Blood Count 3.56 M/mm3 (4.2-5.4); Red Cell Distribution Width 21.7 % (11.5-14.5); White Blood Count 6.1 K/mm3 (4.5-10.0)
[2022-03-02 06:13] LABS: Alanine Aminotransferase 142 U/L (6-35); Albumin Level 3.2 g/dL (3.5-5.1); Alkaline Phosphatase 341 U/L (38-126); Anion Gap 8 mmol/L (8-16); Aspartate Amino Transferase 176 U/L (14-36); Bilirubin,Total 16.4 mg/dL (0.2-1.3); Blood Urea Nitrogen 13 mg/dL (7-17); Calcium 8.6 mg/dL (8.4-10.2); Carbon Dioxide 26 mmol/L (22-30); Chloride 102 mmol/L (98-107); Estimated CRCL calculation 47 ml/min; Estimated Glomerular Filt Rate > 60; Glucose 111 mg/dL (65-110); Magnesium 2.1 mg/dL (1.6-2.3); Sodium 136 mmol/L (137-145)
--- NOTE | 2022-03-02 08:00 | WPDGIPROGNO ---
Progress Note: A&P Assessment and Plan (1) Obstructive jaundice: Code(s): K83.1 - Obstruction of bile duct Status: Acute Assessment and Plan: Patient with obstructive jaundice. Pancreatic mass identified by ultrasound. Unable to be decompressed by ERCP. Endoscopy reveals duodenal impingement by mass. Which limits procedure. radiology does not do external range such as PTC here. Plan is for patient be referred to tertiary care center for either external drain PTC or perhaps another attempt at ERCP by biliary specialist. Have been awaiting this transfer for 1 week. Hopefully she will get over to [facility] today. will add Questran for the pruritis (2) Pancreatic mass: Code(s): K86.89 - Other specified diseases of pancreas Status: Acute Assessment and Plan: Pancreatic mass. 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 (3) Peristomal hernia: Code(s): K46.9 - Unspecified abdominal hernia without obstruction or gangrene Status: Acute Assessment and Plan: Peristomal hernia noted not clinically significant no obstruction (4) History of rectal cancer: Code(s): Z85.048 - Personal history of other malignant neoplasm of rectum, rectosigmoid junction, and anus Status: Acute (5) Secondary malignancy of right lung: Code(s): C78.01 - Secondary malignant neoplasm of right lung Status: Acute Subjective Date/time seen: 03/02/22 08:00 patient alert comfortable this morning. No longer nauseated. Complains of itching everywhere today. Remains quite jaundice. Denies abdominal pain. Review of Systems Review of Systems: Review of systems noncontributory. Exam Narrative: Physical exam reveals Vital Signs to be stable. She remains afebrile. HEENT exam reveals icterus. She has diffuse skin icterus as well. Lungs are clear. Heart without murmur. Abdomen bowel sounds present soft nontender. Left lower quadrant colostomy functioning well. Objective Data Vital Signs Vital Signs: Vital Signs - 24 hr 03/01/22 08:55 03/01/22 14:00 03/01/22 16:36 Temperature 98.0 F Pulse Rate 110 H 86 Respiratory Rate 16 Blood Pressure 106/65 Pulse Oximetry 99 98 Oxygen Delivery Room Air 03/01/22 12:00 03/01/22 16:00 03/01/22 20:58 Temperature Pulse Rate 92 86 90 Respiratory Rate Blood Pressure Pulse Oximetry Oxygen Delivery 03/01/22 20:00 03/01/22 21:53 03/02/22 00:00 Temperature 97 F L Pulse Rate 80 90 112 H Respiratory Rate 16 Blood Pressure 122/77 Pulse Oximetry 96 Oxygen Delivery 03/02/22 04:00 03/02/22 06:00 Temperature 97.6 F Pulse Rate 84 89 Respiratory Rate 18 Blood Pressure 101/69 Pulse Oximetry 96 Oxygen Delivery Intake/Output Intake/Output: Intake & Output 02/27/22 02/28/22 03/01/22 03/02/22 23:59 23:59 23:59 23:59 Intake Total 1260 1680 2060 50 Output Total 2400 700 1000 200 Balance -3974 877 9936 -150 Meds/Results Medications: Active Medications Generic Name Dose Route Start Last Admin Trade Name Freq PRN Reason Stop Dose Admin Albuterol 1 puff 02/24/22 13:42 Albuterol Sulfate (*Sp) Aerosol 1 Puff INHALATION Q4H PRN shortness of breath or wheezing Cholestyramine Resin 4 gm 03/02/22 10:00 Cholestyramine Light 4 Gm Powd.Pack PO BID@1000,1800 ANDER Diltiazem HCl 120 mg 02/24/22 09:00 03/01/22 08:55 Diltiazem Hcl Cd 120 Mg Cap.Sa.24h PO 120 mg QAM ANDER Administration Enoxaparin Sodium 40 mg 02/25/22 09:00 03/01/22 08:54 Enoxaparin 40 Mg/0.4 Ml Syringe SUB-Q 40 mg DAILY ANDER Administration Furosemide 20 mg 02/25/22 09:00 03/01/22 08:54 Furosemide 20 Mg Tablet PO 20 mg QAM ANDER Administration Levofloxacin/Dextrose 750 mg in 150 mls @ 100 mls/hr 02/24/22 16:00 03/01/22 18:24 Levaquin 750 Mg/D5w 150 Ml IVPB Infus
[2022-03-02] MEDS: ENOXAPARIN 40 MG/0.4 ML SYRINGE SUB-Q (08:42)
[2022-03-02] MEDS: FUROSEMIDE 20 MG TABLET PO (08:42)
[2022-03-02] MEDS: METOPROLOL TARTRATE 50 MG TAB PO ×2 (08:42→20:11)
--- NOTE | 2022-03-02 09:45 | P.PNIM_ITS ---
Progress Note: A&P Assessment and Plan (1) Obstructive jaundice: Code(s): K83.1 - Obstruction of bile duct Status: Acute Assessment and Plan: * Probably related to pancreatic mass * Continue to trend bilirubin * Fluids as needed * Continue levaquin IV * Bilirubin trending down direct is 8.7, indirect is 16.4 * Our IR department does not do PTC drain * Still awaiting bed placement at [facility] (2) Pancreatitis: Code(s): K85.90 - Acute pancreatitis without necrosis or infection, unspecified Status: Acute Assessment and Plan: * Lipase elevated upon arrival at 1116 * Lipase at 352 03/01/22 * RUQ ultrasound shows a pancreatic mass * 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 Silverman at [facility] * Will need to follow up with him upon DC (4) Pancreatic mass: Code(s): K86.89 - Other specified diseases of pancreas Status: Acute Assessment and Plan: * See above (5) Afib: Qualifiers: Atrial fibrillation type: unspecified Qualified Code(s): I48.91 - Unspecified atrial fibrillation Code(s): I48.91 - Unspecified atrial fibrillation Status: Acute Assessment and Plan: * In chronic Afib * Increase metoprolol to 50mg PO BID * Seems to be better controlled * Trend heart rate * Will hold Eliquis for now and switch to Lovenox since she might need a few procedures * Tele monitor (6) Transaminitis: Code(s): R74.01 - Elevation of levels of liver transaminase levels Status: Acute Assessment and Plan: * AST/ALT elevated 176/142, with Alk phos being 341 * Probably related to obstruction * Continue to trend * GI on board thank you for your help * RUQ ultrasound showed severely dilated bile duct of 18mm, and a mass in the pancreatic head * MRCP showed 2.9 cm mass in the head of the pancreas severe intra and extrahepatic biliary duct dilatation * Will need an endoscopic ultrasound and possible stent Pt is currently on the list at [facility] (Dr. Boswell), [facility] (Dr. Verduzco), and [facility]. Still awaiting a bed. 03/02/22 Called and she is still on the list. The hospitals are full and we still await a bed at this time. (7) Hyperbilirubinemia: Code(s): E80.6 - Other disorders of bilirubin metabolism Status: Acute Assessment and Plan: * Total bilirubin 16.4, Direct Bilirubin 8.7 (03/01/22) * Related to obstruction * Secondary to Jaundice * Continue to trend (8) Pleural effusion: Code(s): J90 - Pleural effusion, not elsewhere classified Status: Acute Assessment and Plan: * Right-sided moderate pleural effusion noted on x-ray * Thoracentesis ordered and diagnostics have been sent * Patient was able to get 300 mL drained off * Diagnostic testing currently shows no growth will continue to follow (9) Secondary malignancy of right lung: Code(s): C78.01 - Secondary malignant neoplasm of right lung Status: Acute
--- NOTE | 2022-03-02 09:45 | PM.IMPN ---
Progress Note: A&P Assessment and Plan (1) Obstructive jaundice: Code(s): K83.1 - Obstruction of bile duct Status: Acute Assessment and Plan: Probably related to pancreatic mass Continue to trend bilirubin Fluids as needed Continue levaquin IV Bilirubin trending down direct is 8.7, indirect is 16.4 Our IR department does not do PTC drain Still awaiting bed placement at [facility] (2) Pancreatitis: Code(s): K85.90 - Acute pancreatitis without necrosis or infection, unspecified Status: Acute Assessment and Plan: Lipase elevated upon arrival at 1116 Lipase at 352 03/01/22 RUQ ultrasound shows a pancreatic mass 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 Silverman at [facility] Will need to follow up with him upon DC (4) Pancreatic mass: Code(s): K86.89 - Other specified diseases of pancreas Status: Acute Assessment and Plan: See above (5) Afib: Qualifiers: Atrial fibrillation type: unspecified Qualified Code(s): I48.91 - Unspecified atrial fibrillation Code(s): I48.91 - Unspecified atrial fibrillation Status: Acute Assessment and Plan: In chronic Afib Increase metoprolol to 50mg PO BID Seems to be better controlled Trend heart rate Will hold Eliquis for now and switch to Lovenox since she might need a few procedures Tele monitor (6) Transaminitis: Code(s): R74.01 - Elevation of levels of liver transaminase levels Status: Acute Assessment and Plan: AST/ALT elevated 176/142, with Alk phos being 341 Probably related to obstruction Continue to trend GI on board thank you for your help RUQ ultrasound showed severely dilated bile duct of 18mm, and a mass in the pancreatic head MRCP showed 2.9 cm mass in the head of the pancreas severe intra and extrahepatic biliary duct dilatation Will need an endoscopic ultrasound and possible stent Pt is currently on the list at [facility] (Dr. Boswell), [facility] (Dr. Verduzco), and [facility]. Still awaiting a bed. 03/02/22 Called and she is still on the list. The hospitals are full and we still await a bed at this time. (7) Hyperbilirubinemia: Code(s): E80.6 - Other disorders of bilirubin metabolism Status: Acute Assessment and Plan: Total bilirubin 16.4, Direct Bilirubin 8.7 (03/01/22) Related to obstruction Secondary to Jaundice Continue to trend (8) Pleural effusion: Code(s): J90 - Pleural effusion, not elsewhere classified Status: Acute Assessment and Plan: Right-sided moderate pleural effusion noted on x-ray Thoracentesis ordered and diagnostics have been sent Patient was able to get 300 mL drained off Diagnostic testing currently shows no growth will continue to follow (9) Secondary malignancy of right lung: Code(s): 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 Will add melatonin Time Spent With Patient Time with patient: Greater than 35 minutes Subjective Date/time seen: 03/02/22 09:45 Interval history: 03/02/22 0945 Patient is doing okay today. Patient states that she feels better than she has. She also stated that she was having some i
[2022-03-02] MEDS: CHOLESTYRAMINE LIGHT 4 GM POWD.PACK PO ×2 (10:26→17:22)
[2022-03-02] MEDS: diphenhydrAMINE HCl INJ 50 MG/ML VIAL 25 MG IV PUSH (10:28)
[2022-03-02 12:30] LABS: Amylase, Pleural Fluid 36 U/L
[2022-03-02] MEDS: MELATONIN 5 MG TABLET PO (20:12)
[2022-03-03] VITALS (7 sets, daily range): BP systolic 119–125; BP diastolic 72–83; PULSE 69–93; RESP 18; TEMP 35.6–36.6; O2SAT 97–100
[2022-03-03 07:18] LABS: Basophils Absolute Auto 0.1 K/mm3 (0.0-0.1); Basophils Percent Auto 0.8 % (0.2-1.2); Eosinophils Absolute Auto 0.1 K/mm3 (0-0.3); Hematocrit 32.7 % (37.0-47.0); Hemoglobin 10.9 g/dL (12.0-15.0); Immature Granulocyte Absolute 0.15 K/mm3 (0.00-0.031); Immature Granulocyte Percent A 2.3 % (0-0.5); Lymphocytes Absolute Auto 0.61 K/mm3 (0.9-3.2); Lymphocytes Percent Auto 9.4 % (18.3-44.2); Mean Corpuscular HGB Conc 33.3 g/dl (32-36); Mean Corpuscular Hemoglobin 31.5 pg (26-34); Mean Corpuscular Volume 94.5 fl (80-100); Mean Platelet Volume 13.1 fl (7.4-10.4); Monocytes Absolute Auto 0.7 K/mm3 (0.1-0.6); Monocytes Percent Auto 11.3 % (2.6-8.5); Neutrophils Absolute Auto 4.8 K/mm3 (1.3-6.7); Neutrophils Percent Auto 74.2 % (45.5-73.1); Platelet Count Result 183 k/mm3 (150-375); Red Blood Count 3.46 M/mm3 (4.2-5.4); Red Cell Distribution Width 21.3 % (11.5-14.5); White Blood Count 6.5 K/mm3 (4.5-10.0)
[2022-03-03 07:31] LABS: Alanine Aminotransferase 143 U/L (6-35); Albumin Level 3.1 g/dL (3.5-5.1); Alkaline Phosphatase 347 U/L (38-126); Anion Gap 5 mmol/L (8-16); Aspartate Amino Transferase 165 U/L (14-36); Bilirubin Direct 8.8 mg/dL (0-0.3); Bilirubin,Total 16.8 mg/dL (0.2-1.3); Blood Urea Nitrogen 14 mg/dL (7-17); Calcium 8.5 mg/dL (8.4-10.2); Carbon Dioxide 24 mmol/L (22-30); Chloride 104 mmol/L (98-107); Estimated CRCL calculation 47 ml/min; Estimated Glomerular Filt Rate > 60; Glucose 119 mg/dL (65-110); Lipase 869 U/L (23-300); Magnesium 2.1 mg/dL (1.6-2.3); Potassium 3.9 mmol/L (3.4-5.0); Sodium 133 mmol/L (137-145)
[2022-03-03 08:13] LABS: Platelet Estimate Adequate (Adequate)
[2022-03-03 08:14] LABS: Hypochromasia 2+ (NORMAL); Target Cells 2+ (NORMAL)
[2022-03-03] MEDS: CHOLESTYRAMINE LIGHT 4 GM POWD.PACK PO (09:30)
[2022-03-03] MEDS: FUROSEMIDE 20 MG TABLET PO (09:30)
[2022-03-03] MEDS: METOPROLOL TARTRATE 50 MG TAB PO (09:30)
[2022-03-03] MEDS: ENOXAPARIN 40 MG/0.4 ML SYRINGE SUB-Q (09:30)
[2022-03-03] MEDS: diphenhydrAMINE HCl INJ 50 MG/ML VIAL 25 MG IV PUSH (09:35)
--- NOTE | 2022-03-03 09:45 | P.PNIM_ITS ---
Progress Note: A&P Assessment and Plan (1) Obstructive jaundice: Code(s): K83.1 - Obstruction of bile duct Status: Acute Assessment and Plan: * Probably related to pancreatic mass * Continue to trend bilirubin * Fluids as needed * Continue levaquin IV * Bilirubin trending down direct is 8.8, indirect is 16.8 * Our IR department does not do PTC drain * Still awaiting bed placement at [facility], [place] or [facility] (2) Pancreatitis: Code(s): K85.90 - Acute pancreatitis without necrosis or infection, unspecified Status: Acute Assessment and Plan: * Lipase elevated upon arrival at 1116 * Lipase at 869 03/03/22 * Trending up, however, no notable symptoms * RUQ ultrasound shows a pancreatic mass * 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 Silverman at [facility] * Will need to follow up with him upon DC (4) Pancreatic mass: Code(s): K86.89 - Other specified diseases of pancreas Status: Acute Assessment and Plan: * See above (5) Afib: Qualifiers: Atrial fibrillation type: unspecified Qualified Code(s): I48.91 - Unspecified atrial fibrillation Code(s): I48.91 - Unspecified atrial fibrillation Status: Acute Assessment and Plan: * In chronic Afib * Increase metoprolol to 50mg PO BID * Seems to be better controlled * Trend heart rate * Will hold Eliquis for now and switch to Lovenox since she might need a few procedures * Tele monitor (6) Transaminitis: Code(s): R74.01 - Elevation of levels of liver transaminase levels Status: Acute Assessment and Plan: * AST/ALT elevated 165/143, with Alk phos being 447 * Probably related to obstruction * Continue to trend * GI on board thank you for your help * RUQ ultrasound showed severely dilated bile duct of 18mm, and a mass in the pancreatic head * MRCP showed 2.9 cm mass in the head of the pancreas severe intra and extrahepatic biliary duct dilatation * Will need an endoscopic ultrasound and possible stent Pt is currently on the list at [facility] (Dr. Boswell), [place] (Dr. Verduzco), and [facility]. Still awaiting a bed. 03/02/22 Called and she is still on the list. The hospitals are full and we still await a bed at this time. 03/03/22 no further progress at this time (7) Hyperbilirubinemia: Code(s): E80.6 - Other disorders of bilirubin metabolism Status: Acute Assessment and Plan: * Total bilirubin 16.8, Direct Bilirubin 8.8 (03/01/22) * Related to obstruction * Secondary to Jaundice * Continue to trend (8) Pleural effusion: Code(s): J90 - Pleural effusion, not elsewhere classified Status: Acute Assessment and Plan: * Right-sided moderate pleural effusion noted on x-ray * Thoracentesis ordered and diagnostics have been sent * Patient was able to get 300 mL drained off * Diagnostic testing currently shows no growth will continue to follow (9) Secondary malignancy of rig
--- NOTE | 2022-03-03 09:45 | PM.IMPN ---
Progress Note: A&P Assessment and Plan (1) Obstructive jaundice: Code(s): K83.1 - Obstruction of bile duct Status: Acute Assessment and Plan: Probably related to pancreatic mass Continue to trend bilirubin Fluids as needed Continue levaquin IV Bilirubin trending down direct is 8.8, indirect is 16.8 Our IR department does not do PTC drain Still awaiting bed placement at [facility], [place] or [facility] (2) Pancreatitis: Code(s): K85.90 - Acute pancreatitis without necrosis or infection, unspecified Status: Acute Assessment and Plan: Lipase elevated upon arrival at 1116 Lipase at 869 03/03/22 Trending up, however, no notable symptoms RUQ ultrasound shows a pancreatic mass 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 Silverman at [facility] Will need to follow up with him upon DC (4) Pancreatic mass: Code(s): K86.89 - Other specified diseases of pancreas Status: Acute Assessment and Plan: See above (5) Afib: Qualifiers: Atrial fibrillation type: unspecified Qualified Code(s): I48.91 - Unspecified atrial fibrillation Code(s): I48.91 - Unspecified atrial fibrillation Status: Acute Assessment and Plan: In chronic Afib Increase metoprolol to 50mg PO BID Seems to be better controlled Trend heart rate Will hold Eliquis for now and switch to Lovenox since she might need a few procedures Tele monitor (6) Transaminitis: Code(s): R74.01 - Elevation of levels of liver transaminase levels Status: Acute Assessment and Plan: AST/ALT elevated 165/143, with Alk phos being 447 Probably related to obstruction Continue to trend GI on board thank you for your help RUQ ultrasound showed severely dilated bile duct of 18mm, and a mass in the pancreatic head MRCP showed 2.9 cm mass in the head of the pancreas severe intra and extrahepatic biliary duct dilatation Will need an endoscopic ultrasound and possible stent Pt is currently on the list at [facility] (Dr. Boswell), [place] (Dr. Verduzco), and [facility]. Still awaiting a bed. 03/02/22 Called and she is still on the list. The hospitals are full and we still await a bed at this time. 03/03/22 no further progress at this time (7) Hyperbilirubinemia: Code(s): E80.6 - Other disorders of bilirubin metabolism Status: Acute Assessment and Plan: Total bilirubin 16.8, Direct Bilirubin 8.8 (03/01/22) Related to obstruction Secondary to Jaundice Continue to trend (8) Pleural effusion: Code(s): J90 - Pleural effusion, not elsewhere classified Status: Acute Assessment and Plan: Right-sided moderate pleural effusion noted on x-ray Thoracentesis ordered and diagnostics have been sent Patient was able to get 300 mL drained off Diagnostic testing currently shows no growth will continue to follow (9) Secondary malignancy of right lung: Code(s): 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 Will add melatonin Time Spent With Patient Time with patient: Greater than 35 minutes Subjective Date/time seen: 03/03/22944 Interval history: 03/03/22944 Patient is doing oka
--- NOTE | 2022-03-03 13:38 | WPDGIPROGNO ---
Progress Note: A&P Assessment and Plan (1) Jaundice: Code(s): R17 - Unspecified jaundice Status: Acute Assessment and Plan: Patient remains jaundice. Lab test unchanged. Appears to be sequelae of pancreatic mass. Awaiting transfer to tertiary care center. (2) Pruritus, unspecified: Code(s): L29.9 - Pruritus, unspecified Status: Acute Assessment and Plan: Diffuse itching secondary to hyperbilirubinemia. Now on Questran hopefully this will minimize itching. (3) Pancreatic mass: Code(s): K86.89 - Other specified diseases of pancreas Status: Acute Assessment and Plan: Pancreatic mass. May be primary or potentially metastatic from rectal cancer. Causing obstructive jaundice at present. Duodenal impingement also noted by endoscopy. She will need referral to tertiary care center for a another attempted ERCP and internal biliary drainage versus external biliary drainage by PTC be a real etiology. I have attempted to contact biliary service at [facility] with no response to date. She is on waiting list for several hospitals and potential transfer she has been at our hospital for 1 week. Will continue prophylactic antibiotics for risk of cholangitis, no evidence of cholangitis at present however. (4) History of rectal cancer: Code(s): Z85.048 - Personal history of other malignant neoplasm of rectum, rectosigmoid junction, and anus Status: Acute Assessment and Plan: History of rectal cancer status post colostomy. 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 Followed by [facility] in [place]. Initially felt to be stable till this admission with jaundice. (5) Peristomal hernia: Code(s): K46.9 - Unspecified abdominal hernia without obstruction or gangrene Status: Acute (6) Secondary malignancy of right lung: Code(s): C78.01 - Secondary malignant neoplasm of right lung Status: Acute Subjective Date/time seen: 03/03/22 13:38 Patient alert comfortable this morning. Sitting upright tolerating diet. Denies any abdominal pain. No fever. Review of Systems Constitutional: Comments: Review of systems noncontributory. Exam Narrative: Physical exam reveals alert , comfortable at rest. . Lungs are clear. Heart without murmur.. Abdomen bowel sounds present some soft nontender with no obvious organomegaly. Objective Data Vital Signs Vital Signs: Vital Signs - 24 hr 03/02/22 14:00 03/02/22 16:00 03/02/22 20:11 Temperature 97.8 F Pulse Rate 88 74 92 Respiratory Rate 24 H Blood Pressure 109/63 Pulse Oximetry 98 Oxygen Delivery 03/02/22 20:00 03/02/22 21:58 03/02/22 20:00 Temperature 97.8 F Pulse Rate 89 97 Respiratory Rate 18 Blood Pressure 127/77 Pulse Oximetry 99 Oxygen Delivery Room Air 03/03/22 00:00 03/03/22 04:00 03/03/22 06:00 Temperature 97.8 F Pulse Rate 84 69 70 Respiratory Rate 18 Blood Pressure 125/83 Pulse Oximetry 97 Oxygen Delivery 03/03/22 09:30 03/03/22 08:00 Temperature Pulse Rate 93 Respiratory Rate Blood Pressure Pulse Oximetry Oxygen Delivery Room Air Intake/Output Intake/Output: Intake & Output 02/28/22 03/01/22 03/02/22 03/03/22 23:59 23:59 23:59 23:59 Intake Total 1680 2060 1380 600 Output Total 700 7475 010 8511 Balance 980 1060 1180 -600 Meds/Results Medications: Active Medications Generic Name Dose Route Start Last Admin Trade Name Freq PRN Reason Stop Dose Admin Albuterol 1 puff 02/24/22 13:42 Albuterol Sulfate (*Sp) Aerosol 1 Puff INHALATION Q4H PRN shortness of breath or wheezing Cholestyramine Resin 4 gm 03/02/22 10:00 03/03/22 09:30 Cholestyramine Light 4 Gm Powd.Pack PO 4 gm BID@1000,1800 ANDER Administration Diltiazem HCl 120 mg 02/24/22 09:00 03/03/22 09:31 Diltiazem Hcl Cd 120 Mg Cap.Sa.24h PO 120 mg QAM ANDER Administration Diphenhy
--- NOTE | 2022-03-03 14:37 | PM.DS ---
DS: Admitting Diagnosis Discharge Date 03/03/22 1430 Admitting Diagnosis Obstructive Jaundice DS: Discharge Diagnosis Discharge Diagnosis (1) Obstructive jaundice: Code(s): K83.1 - Obstruction of bile duct Status: Acute Assessment and Plan: Probably related to pancreatic mass Continue to trend bilirubin Fluids as needed Continue levaquin IV Bilirubin trending down direct is 8.8, indirect is 16.8 Our IR department does not do PTC drain Still awaiting bed placement at [facility], [place] or [facility] Patient is going (2) Pancreatitis: Code(s): K85.90 - Acute pancreatitis without necrosis or infection, unspecified Status: Acute Assessment and Plan: Lipase elevated upon arrival at 1116 Lipase at 869 03/03/22 Trending up, however, no notable symptoms RUQ ultrasound shows a pancreatic mass 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 Silverman at [facility] Will need to follow up with him upon DC (4) Pancreatic mass: Code(s): K86.89 - Other specified diseases of pancreas Status: Acute Assessment and Plan: See above (5) Afib: Qualifiers: Atrial fibrillation type: unspecified Qualified Code(s): I48.91 - Unspecified atrial fibrillation Code(s): I48.91 - Unspecified atrial fibrillation Status: Acute Assessment and Plan: In chronic Afib Increase metoprolol to 50mg PO BID Seems to be better controlled Trend heart rate Will hold Eliquis for now and switch to Lovenox since she might need a few procedures Tele monitor (6) Transaminitis: Code(s): R74.01 - Elevation of levels of liver transaminase levels Status: Acute Assessment and Plan: AST/ALT elevated 165/143, with Alk phos being 447 Probably related to obstruction Continue to trend GI on board thank you for your help RUQ ultrasound showed severely dilated bile duct of 18mm, and a mass in the pancreatic head MRCP showed 2.9 cm mass in the head of the pancreas severe intra and extrahepatic biliary duct dilatation Will need an endoscopic ultrasound and possible stent Pt is currently on the list at [facility] (Dr. Boswell), [place] (Dr. Verduzco), and [facility]. Still awaiting a bed. 03/02/22 Called and she is still on the list. The hospitals are full and we still await a bed at this time. 03/03/22 no further progress at this time (7) Hyperbilirubinemia: Code(s): E80.6 - Other disorders of bilirubin metabolism Status: Acute Assessment and Plan: Total bilirubin 16.8, Direct Bilirubin 8.8 (03/01/22) Related to obstruction Secondary to Jaundice Continue to trend (8) Pleural effusion: Code(s): J90 - Pleural effusion, not elsewhere classified Status: Acute Assessment and Plan: Right-sided moderate pleural effusion noted on x-ray Thoracentesis ordered and diagnostics have been sent Patient was able to get 300 mL drained off Diagnostic testing currently shows no growth will continue to follow (9) Secondary malignancy of right lung: Code(s): 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 Will add melatonin DS: Summary Hospital Course Hospital Course: Petr
--- NOTE | 2022-03-03 14:37 | P.DS_ITS ---
DS: Admitting Diagnosis Discharge Date 03/03/22 1430 Admitting Diagnosis Obstructive Jaundice DS: Discharge Diagnosis Discharge Diagnosis (1) Obstructive jaundice: Code(s): K83.1 - Obstruction of bile duct Status: Acute Assessment and Plan: * Probably related to pancreatic mass * Continue to trend bilirubin * Fluids as needed * Continue levaquin IV * Bilirubin trending down direct is 8.8, indirect is 16.8 * Our IR department does not do PTC drain * Still awaiting bed placement at [facility], [place] or [facility] Patient is going (2) Pancreatitis: Code(s): K85.90 - Acute pancreatitis without necrosis or infection, unspecified Status: Acute Assessment and Plan: * Lipase elevated upon arrival at 1116 * Lipase at 869 03/03/22 * Trending up, however, no notable symptoms * RUQ ultrasound shows a pancreatic mass * 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 Silverman at [facility] * Will need to follow up with him upon DC (4) Pancreatic mass: Code(s): K86.89 - Other specified diseases of pancreas Status: Acute Assessment and Plan: * See above (5) Afib: Qualifiers: Atrial fibrillation type: unspecified Qualified Code(s): I48.91 - Unspecified atrial fibrillation Code(s): I48.91 - Unspecified atrial fibrillation Status: Acute Assessment and Plan: * In chronic Afib * Increase metoprolol to 50mg PO BID * Seems to be better controlled * Trend heart rate * Will hold Eliquis for now and switch to Lovenox since she might need a few pr ocedures * Tele monitor (6) Transaminitis: Code(s): R74.01 - Elevation of levels of liver transaminase levels Status: Acute Assessment and Plan: * AST/ALT elevated 165/143, with Alk phos being 447 * Probably related to obstruction * Continue to trend * GI on board thank you for your help * RUQ ultrasound showed severely dilated bile duct of 18mm, and a mass in the pancreatic head * MRCP showed 2.9 cm mass in the head of the pancreas severe intra and extrahepatic biliary duct dilatation * Will need an endoscopic ultrasound and possible stent Pt is currently on the list at [facility] (Dr. Boswell), [place] (Dr. Verduzco), and [facility]. Still awaiting a bed. 03/02/22 Called and she is still on the list. The hospitals are full and we still await a bed at this time. 03/03/22 no further progress at this time (7) Hyperbilirubinemia: Code(s): E80.6 - Other disorders of bilirubin metabolism Status: Acute Assessment and Plan: * Total bilirubin 16.8, Direct Bilirubin 8.8 (03/01/22) * Related to obstruction * Secondary to Jaundice * Continue to trend (8) Pleural effusion: Code(s): J90 - Pleural effusion, not elsewhere classified Status: Acute Assessment and Plan: * Right-sided moderate pleural effusion noted on x-ray * Thoracentesis ordered and diagnostics have been sent * Patient was able to get 300 mL drained off * D
[2022-03-03] MEDS: LORATADINE 10 MG TABLET PO (14:48)
== END 2022-03-03 16:10 | disposition home or self-care (01) | DRG 435 ==
LOC: ANHED 15:29 → ANH3MEDSUR 02-24 10:43
PROVIDERS: General Practice; Internal Medicine Gastroenterology; Physician Assistant; Admitting Provider Family Medicine; Emergency Provider Emergency Medicine; PCP Internal Medicine; Visit Provider Nurse Practitioner
PROC: 0DJ08ZZ Inspection of Upper Intestinal Tract, Via Natural or Artificial Opening Endoscopic (ICD-10-PCS; CPT 43260; principal; 2022-02-25 14:00)
DX: C25.0 Malignant neoplasm of head of pancreas (principal); K83.1 Obstruction of bile duct; J90 Pleural effusion, not elsewhere classified; C78.01 Secondary malignant neoplasm of right lung; I48.20 Chronic atrial fibrillation, unspecified; I50.32 Chronic diastolic (congestive) heart failure; Z20.822 Contact with and (suspected) exposure to COVID-19; E78.5 Hyperlipidemia, unspecified; M19.90 Unspecified osteoarthritis, unspecified site; H40.9 Unspecified glaucoma; G20 Parkinson's disease; K46.9 Unspecified abdominal hernia without obstruction or gangrene; Z53.8 Procedure and treatment not carried out for other reasons; Z90.49 Acquired absence of other specified parts of digestive tract; Z93.3 Colostomy status; Z85.048 Personal history of other malignant neoplasm of rectum, rectosigmoid junction, and anus
CPT/HCPCS: 32555; 36415; 71045; 74176; 74183; 76376; 76705; 80048; 80053; 80076; 81001; 82042; 82140; 82150; 82248; 82378; 82465; 82550; 82945; 83615; 83690; 83735; 84157; 84311; 84478; 85025; 85055; 85610; 85730; 86301; 86704; 86706; 86709; 86803; 87015; 87070; 87075; 87086; 87102; 87116; 87205; 87206; 87340; 88104; 88108; 88184; 88305; 89051; 93005; 96361; 96365; 96366; 97110; 97161; 97165; 97530; 99285; A9270; A9577; C9803; G0378; J1200; J1650; J1956; J2370; J2405; J2704; J7030; J7040; J7120; U0003; U0005